=== PATIENT | female | born 1945 | race Caucasian/White ===

== ENCOUNTER 2017-01-31 10:50 | Emergency (ER) | payer MEDICARE, BC ==
--- NOTE | 2017-01-31 12:33 | CR ---
INDICATION: Chest pain. CHEST: An AP portable upright view of the chest, 01/31/2017, was compared with 06/25/2011 and revealed the heart to remain normal in size, although perhaps slightly increased in size compared with the previous study. The aorta is mildly tortuous. An active infiltrate or effusion was not identified. Overlying EKG leads are noted. IMPRESSION: 1. No acute process. 2. Probable ASHD. MTDD
[2017-01-31] MEDS ORDERED: Nitroglycerin 0.4 MG Tab.SL SL ONE (12:53)
[2017-01-31 14:15] VITALS: BP 121/62
--- NOTE | 2017-02-04 11:07 | ER ---
DATE SEEN: 01/31/2017 TIME SEEN: The patient was seen at 0145 hours. HISTORY OF PRESENT ILLNESS: This 71-year-old woman comes in with onset of 1- minute duration midsternal chest pain, 4 to 6 in intensity, several weeks' duration, intermittently throughout the day and she describes this as chest heaviness. This radiates to her left shoulder, arm, and these feel heavy on occasions when it radiates at about 4/10 in intensity. No associated lightheadedness, diaphoresis, nausea, tachycardia, palpitations, syncope, near syncope, leg pain, shortness of breath, cough, back pain, arm pain, jaw pain, or neck pain. Denies dyspnea on exertion. Cough has been present at night for the last 2 to 3 weeks. REVIEW OF SYSTEMS: HEENT: Negative. CARDIORESPIRATORY: As above. She has had a cough since November. This causes coughing discomfort in midsternum. GI: Occasional nausea some times in the morning before breakfast, yesterday noted it while driving with her sister to the [place] in the afternoon. She felt slightly nauseated while riding in the car. The patient is overweight. : Status post right kidney failure at one time, 09/21/2016, there was discussion about having a right kidney removed as this is not functioning. However, the sprayer machine stated she was too healthy and did not require surgery as the kidney was not causing further problems. Because of this, she has chronic kidney disease stage III. She has subsequent anemia and noted to have microcytic anemia with low hemoglobin with average in the 9 to 10 range. She is not currently taking iron medicines, but this has not changed her iron. She has dyslipidemia. PAST SURGICAL HISTORY: Cholecystectomy, colon surgery, hernia repair, mesh placement, and hysterectomy. SOCIAL HISTORY: Single. Nonsmoker. Does not drink alcohol or chew tobacco. PHYSICAL EXAMINATION: VITAL SIGNS: Blood pressure 109/59, heart rate 68, respirations 14, oxygen saturation 95%, and temperature is 36.8 degrees. Repeat blood pressure 132/51, 101/64, 121/62. GENERAL: Alert, overweight woman, in no acute distress. Slightly anxious. HEENT: PERRLA intact. Pharynx without abnormality. NECK: No cervical adenopathy or bruits in neck, or thyromegaly. LUNGS: Clear to auscultation. There are no rales, rhonchi, or wheezes. HEART: S1, S2. No irregular rate and rhythm. No murmur. ABDOMEN: Soft. No guarding. No abdominal discomfort. No hepatosplenomegaly. Midline scar xiphoid to symphysis, multiple scars noted. Also, has moderate induration right- sided lower abdomen (she states that is where the mesh is). No CVA percussion tenderness. EXTREMITIES: Lower extremities without pedal edema. Pulses normal. No clubbing. DERMIS: No scleral icterus, but she has a brown tanning, mild bronzing of the skin. IMAGING: EKG; left axis deviation, mildly poor R-wave progression across the anterior precordials. The computer did not read this as anterior myocardial infarction, age indeterminate. Chest x-ray, fullness of the superior right mediastinum secondary to brachiocephalic vessels, otherwise no cardiomegaly, no other infiltrates or cephalization of the vascular structures in the lungs. LABORATORY FINDINGS: Hemoglobin 10.5, white count 8200, PMNs 82, lymphocytes 9, monos 8, MCV is 79, MCH 26, both are low, MCHC is 33 (normal). RDW elevated at 16.5. Platelets elevated at 447,000. Troponin less than 0.01. D-dimer slightly elevated at 829 (The "10 Rule" - 10 times age is considered within normal range), hers is well within the normal range in terms of the up to date data and [employer] publications. GFR is decreased to 40 suggesting chronic kidney disease stage IV. However, this may be really the one functioning kidney. Last, 09/12/2015, hemoglobin is 12.5. On 09/10/2016, it was 9.7 (she has had transfusions in the past) probably had a transfusion at this point. I did not check the record. Otherwise, 01/31/2017-today, she has a 10.5 hemoglobin. In July 2015, she had a hemoglobin 10.3. These hemoglobins reflect the chronic kidney disease that she has. She has had a slow drop of her GFR from 44 on 08/10/2015, to 55 on 09/12/2015, greater than 60 on 09/14/2015, and 40 today (01/31/2017). Her platelets were chronically elevated since 2014 at 540,000, 587,000, and today is 447,000. ASSESSMENT: 1. Stable angina. Chest x-ray does not reveal any infiltrate. No cardiomegaly. 2. Probable coronary artery disease, as she did respond nicely to sublingual nitroglycerin; her chest discomfort of 1 went away. 3. Mild obesity. 4. Chronic kidney disease stage III (1 nonfunctioning right kidney). 5. Dyslipidemia. 6. Hypertension. 7. Iron therapy (even though she has low hemoglobin; however, she has had transfusion in the past that perhaps is efficacious). 8. Status post cholecystectomy, partial colectomy, mesh placement for hernia repair, and hysterectomy. PLAN: The patient is dismissed with Imdur 30 mg daily, 30 tablets prescribed. Follow up with doctor in a week. If not improved, perhaps a stress test may be needed. /[id number] OLIVER/JOSE R
== END 2017-01-31 14:35 | disposition home or self-care (01) ==
LOC: FB.ED 10:50
DX: I20.9 Angina pectoris, unspecified (principal); I12.9 Hypertensive chronic kidney disease with stage 1 through stage 4 chronic kidney disease, or unspecified chronic kidney disease; N18.3 Chronic kidney disease, stage 3 (moderate); E66.9 Obesity, unspecified; E78.5 Hyperlipidemia, unspecified; Z90.49 Acquired absence of other specified parts of digestive tract; Z90.710 Acquired absence of both cervix and uterus
CPT/HCPCS: 36415; 71010; 80053; 84484; 85025; 85379; 93005; 99285; A9270; 99283

== ENCOUNTER 2017-11-05 08:52 | Day surgery (SDC) | payer MEDICARE, BC ==
[2017-11-05] MEDS ORDERED: Lactated Ringers 1,000 ML IV SCH (09:00)
[2017-11-05] MEDS ORDERED: Sodium Chloride 0.9% 10 ML Syringe FLUSH PRN (09:00)
--- NOTE | 2017-11-05 10:43 | PCM.PN ---
- General Info Date of Service: 11/05/17 - Review of Systems Systems Review Comment:: 72 y/o female with recent history of anemia referred for EGD and Colonoscopy. She is medically stable to proceed. Her recent H and P is reviewed and there has been no significant recent changes. I have discussed the proposed procedures with the patient and she agrees to proceed accepting risks. - Patient Data Vitals - Most Recent: Last Vital Signs Temp 98.8 F 11/05/17 09:19 Pulse 60 11/05/17 09:19 Resp 20 11/05/17 09:19 BP 132/73 11/05/17 09:19 Pulse Ox 98 11/05/17 09:19 Weight - Most Recent: 177 lb Med Orders - Current: Current Medications Lactated Ringer's (Ringers, Lactated) 1,000 mls @ 125 mls/hr IV ASDIRECTED WANDA Last Admin: 11/05/17 10:08 Dose: 125 mls/hr Sodium Chloride (Saline Flush) 10 ml FLUSH ASDIRECTED PRN PRN Reason: Keep Vein Open - Problem List Review Problem List Initiated/Reviewed/Updated: Yes - My Orders Last 24 Hours: My Active Orders 11/04/17 17:41 Resuscitation Status Routine 11/05/17 09:00 Patient Status [ADT] Routine Accu Check [Blood Glucose Check, Bedside] [RC] ONETIME Verify Patient Consent Obtain [RC] ASDIRECTED Lactated Ringers [Ringers, Lactated] 1,000 ml IV ASDIRECTED Sodium Chloride 0.9% [Saline Flush] 10 ml FLUSH ASDIRECTED PRN Peripheral IV Insertion Adult [OM.PC] Routine - Assessment Assessment:: Anemia - Plan Plan:: EGD and Colonoscopy
[2017-11-05] MEDS ORDERED: Midazolam 1 MG/ML 2 ML SDV IV ONE (10:50)
[2017-11-05] MEDS ORDERED: Propofol 200 MG/20 ML SDV IV ONE (10:50)
--- NOTE | 2017-11-05 11:52 | PCM.OPNOTE ---
- General Post-Op/Procedure Note Date of Surgery/Procedure: 11/05/17 Operative Procedure(s): EGD with Biopsy and Colonoscopy with Polypectomy Findings: White patches in esophagus suggestive of bridgette esophagitis Scattered benign appearing gastric polyps No visible signs of bleeding on upper endoscopy Extensive Sigmoid Diverticulosis in area of previous colon resection but without signs of acute inflammation or bleeding Splenic flexure polyp Pre Op Diagnosis: anemia Post-Op Diagnosis: Bridgette Esophagitis. Gastric Polyps. Diverticulosis. Colon Polyp. Prior Sigmoid Colon Resection Anesthesia Technique: MAC Primary Surgeon: Bentley Boateng Pathology: Biopsies of Gastric Antrum, Gastric Polyps, Mid Esophagus Colon Polyp EBL in mLs: 3 Complications: None Condition: Good
[2017-11-05 12:59] VITALS: BP 117/53
--- NOTE | 2017-11-05 18:07 | OR ---
DATE OF OPERATION: 11/05/2017 SURGEON: Bnetley Boateng MD OPERATING SURGEON: Bentley Boateng MD PREOPERATIVE DIAGNOSIS: Anemia. POSTOPERATIVE DIAGNOSES: Bridgette esophagitis, gastric polyps, sigmoid colon diverticulosis, splenic flexure, colon polyp, prior colon resection. OPERATION PERFORMED: Esophagogastroduodenoscopy with biopsy and colonoscopy with polypectomy. INDICATIONS FOR SURGERY: This 72-year-old female has been having unexplained anemia and is referred for upper and lower endoscopy to evaluate for source of bleeding. FINDINGS: No definite source of bleeding is seen during the exams today. The patient does have a few benign-appearing small polyps in the midportion of her stomach, but none show any evidence of bleeding. She also has multiple white patches in her midesophagus suggestive of fungal esophagitis. On colonoscopy, there was extensive sigmoid diverticulosis, although this does not appear acutely inflamed and no evidence of active or recent bleeding was seen. There was a 1 cm irregular polyp noted at the splenic flexure and there is evidence of an anastomosis in the sigmoid colon consistent with her previous surgery, but no areas of acute inflammation or bleeding were seen. PROCEDURE IN DETAIL: The patient was taken to the procedure room. She was given intravenous sedation and her throat was topically anesthetized. The esophagus was intubated with the Olympus gastroscope, this was carefully advanced under direct visualization through the esophagus, stomach, and into the duodenum where examination to the fourth portion was performed. After carefully examining the duodenum, the scope was withdrawn back up into the stomach, where full examination including retroflex examination of the fundus was performed. Random biopsies of the antrum were taken to rule out H. pylori. Also, random sampling of the small benign-appearing gastric polyps was taken as well. The GE junction and esophagus were also re-examined as the scope was withdrawn. Biopsies were taken in the midesophagus to establish suspected Bridgette esophagitis. After examining the esophagus, the scope was removed and attention was turned to colonoscopy. Digital rectal exam was performed showing no rectal masses. The Olympus colonoscope was inserted into the rectum, where retroflexed examination of the rectal canal was performed. The scope was then carefully advanced under direct visualization through the entire length of the colon. This was somewhat difficult to negotiate through the sigmoid region because of extensive diverticulosis and prior surgery, but was able to be safely negotiated and then the scope was advanced to the cecum where the appendiceal orifice and ileocecal valve were viewed and the light is noted transilluminate the abdominal wall on the right lower quadrant. After examining the cecum, the scope was slowly withdrawn sequentially re-examining the colonic segments. In the region of the splenic flexure, the above-described polyp was identified. It was removed with a cautery snare and retrieved into a polyp trap. Examination was then completed and after the entire colon and rectum had been fully examined, the scope was removed and the patient was taken from the procedure room in satisfactory condition. ESTIMATED BLOOD LOSS: 3 mL. COMPLICATIONS: None. PROGNOSIS: Good. /[id number] MAKENNA/JOSE R
== END 2017-11-05 12:50 | disposition home or self-care (01) ==
LOC: FB.SDS 08:52
PROVIDERS: ATTEND Surgery
DX: K29.50 Unspecified chronic gastritis without bleeding (principal); B37.81 Candidal esophagitis; K31.7 Polyp of stomach and duodenum; K51.40 Inflammatory polyps of colon without complications; F32.9 Major depressive disorder, single episode, unspecified; K21.9 Gastro-esophageal reflux disease without esophagitis; I10 Essential (primary) hypertension; E03.9 Hypothyroidism, unspecified; E78.00 Pure hypercholesterolemia, unspecified; Z88.1 Allergy status to other antibiotic agents; Z88.8 Allergy status to other drugs, medicaments and biological substances; Z93.3 Colostomy status; Z79.899 Other long term (current) drug therapy
CPT/HCPCS: 00813; 43239; 45385; 88305; 88312; 88313; 88342; J2250; J2704; J7120; 82962

== ENCOUNTER 2018-01-12 10:58 | Emergency (ER) | payer OTHER, MEDICARE, BC ==
[2018-01-12] MEDS ORDERED: Acetaminophen 500 MG Tab PO ONE (11:51)
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
[2018-01-12 12:34] VITALS: BP 146/68
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
== END 2018-01-12 12:41 | disposition home or self-care (01) ==
LOC: FB.ED 10:58
DX: S90.01XA Contusion of right ankle, initial encounter (principal); S20.219A Contusion of unspecified front wall of thorax, initial encounter; E03.9 Hypothyroidism, unspecified; I10 Essential (primary) hypertension; Z79.899 Other long term (current) drug therapy; Z88.1 Allergy status to other antibiotic agents; Z88.5 Allergy status to narcotic agent; Z88.8 Allergy status to other drugs, medicaments and biological substances; Z79.01 Long term (current) use of anticoagulants; V59.9XXA Occupant (driver) (passenger) of pick-up truck or van injured in unspecified traffic accident, initial encounter
CPT/HCPCS: 73610; 99285; A9270

== ENCOUNTER 2019-01-25 10:29 | Emergency (ER) | payer MEDICARE, BC ==
--- NOTE | 2019-01-25 10:58 | EDM.PDOC ---
ED HPI GENERAL MEDICAL PROBLEM - General Chief Complaint: Gastrointestinal Problem Stated Complaint: DIARRHEA, VOMITING Time Seen by Provider: 01/25/19 10:54 Source of Information: Reports: Patient, Family History Limitations: Reports: No Limitations - History of Present Illness INITIAL COMMENTS - FREE TEXT/NARRATIVE: 73 y.o.w.f came to the ed because of nausea and vomiting mehran one yesterdays and 4 BMs today with dysuria. No Trauma. Pt was d/c from [facility] after a stent was placed into her left ureter. No trauma, No N/V and D at this time. pt denies food poisoning. No SOB or CP. No other acute med issues. BP 103/69 RR 16 Pulse ox 96% on RA Temp 36.6 Pulse 75 Onset Date: 01/24/19 Duration: Hour(s):, Day(s):, Waxing/Waning Location: Reports: Abdomen Quality: Reports: Burning, Dull Severity: Mild Improves with: Reports: Rest Worsens with: Reports: Movement Context: Reports: Sick Contact Associated Symptoms: Reports: No Other Symptoms Abdominal Pain Score (Numeric/FACES): 4 - Related Data Allergies Allergy/AdvReac Type Severity Reaction Status Date / Time lisinopril Allergy Unknown Swelling Verified 01/25/19 10:39 amoxicillin [From Augmentin] Allergy Swelling Verified 01/25/19 10:39 clavulanic acid Allergy Swelling Verified 01/25/19 10:39 [From Augmentin] codeine AdvReac Unknown Nausea Verified 01/25/19 10:39 propoxyphene HCl AdvReac Unknown Other Verified 01/25/19 10:39 [From Darvon] Home Meds: Home Meds Ascorbic Acid [C-1000] 1,000 mg PO DAILY 09/06/16 [History] Calcium Carb & Citrate/Vit D3 [Citracal + D ER] 1 each PO BID 09/06/16 [History] Cholecalciferol (Vitamin D3) [Vitamin D3] 2,000 unit PO 1800 09/06/16 [History] Citalopram [Citalopram HBr] 40 mg PO DAILY 09/06/16 [History] Fluticasone Propionate [Flonase] 2 spray NS DAILY PRN 09/06/16 [History] Gemfibrozil [Lopid] 600 mg PO BIDAC 09/06/16 [History] Losartan [Cozaar] 50 mg PO DAILY 09/06/16 [History] Lutein 20 mg PO 1800 09/06/16 [History] Metoprolol Succinate [Toprol XL] 50 mg PO DAILY 09/06/16 [History] Multivitamin with Minerals [Multiple Vitamin] 1 tab PO DAILY 09/06/16 [History] Omeprazole 40 mg PO ACBREAKFAST 09/06/16 [History] Simvastatin [Zocor] 10 mg PO DAILY 09/06/16 [History] Vitamin B Complex [B Complex] 1 each PO DAILY 09/06/16 [History] hydroCHLOROthiazide [Hydrochlorothiazide] 25 mg PO DAILY 09/06/16 [History] Levothyroxine 150 mcg PO MO 09/09/16 [History] Acetaminophen [Masophen] 1,000 mg PO Q8HR PRN MDD 4000 MG 11/04/17 [History] Furosemide [Lasix] 20 mg PO DAILY 11/04/17 [History] Levothyroxine 75 mcg PO SUTUWETHFRSA 11/04/17 [History] Nitroglycerin [Nitrostat] 0.4 mg SL ASDIRECTED 11/04/17 [History] Potassium Chloride [Klor-Con 10] 10 meq PO DAILY 11/04/17 [History] Ranitidine HCl [Zantac] 150 mg PO DAILY 11/04/17 [History] Coconut Oil 1,000 mg PO BID 11/05/17 [History] Magnesium Oxide [Magnesium] 400 mg PO 1200 11/05/17 [History] Alendronate Sodium [Fosamax] 70 mg PO DAILY 01/25/19 [History] Fish,Saf,Flx,Brg Oils/O3,6,9#2 [Caiz-Rvtl-Twmkqo Oil Softgel] 1 cap PO BID 01/25 [History] Gabapentin [Neurontin] 300 mg PO BID 01/25/19 [History] Gabapentin [Neurontin] 600 cap PO BEDTIME 01/25/19 [History] Ginkgo Biloba 40 mg PO DAILY 01/25/19 [History] Levofloxacin [Levaquin] 500 mg PO DAILY #10 tablet 01/25/19 [Rx] Loratadine 10 mg PO DAILY 01/25/19 [History] Ondansetron [Zofran ODT] 4 mg PO Q6H PRN #5 tab.dis 01/25/19 [Rx] Past Medical History HEENT History: Reports: Cataract, Impaired Vision, Other (See Below) Other HEENT History: DOUBLE VISION, bilat cataracts, Cardiovascular History: Reports: High Cholesterol, Hypertension Respiratory History: Reports: None Gastrointestinal History: Reports: Diverticulosis, GERD, GI Bleed Genitourinary History: Reports: Renal Calculus Other Genitourinary History: PAST KIDNEY STONES. STATES RIGHT KIDNEY DOES NOT FUNCTION. RN LACTATION CONSULTANT History: Reports: Other RN LACTATION CONSULTANT History: III, PARA III Musculoskeletal History: Reports: Arthritis, Fracture, Osteoarthritis, Other ( See Below) Other Musculoskeletal History: BURSITIS OF RIGHT HIP, hx L fx ankle Neurological History: Reports: None Psychiatric History: Reports: Anxiety, Depression Endocrine/Metabolic History: Reports: Hypothyroidism, Obesity/BMI 30+ Hematologic History: Reports: Anemia, Anticoagulation Therapy, Blood Transfusion (s), Iron Deficiency Immunologic History: Reports: None Oncologic (Cancer) History: Reports: None Dermatologic History: Reports: None - Infectious Disease History Infectious Disease History: Reports: Chicken Pox, Measles, Mumps - Past Surgical History Head Surgeries/Procedures: Reports: None HEENT Surgical History: Reports: Adenoidectomy, Tonsillectomy GI Surgical History: Reports: Appendectomy, Cholecystectomy, Colon, Colonoscopy , Colostomy, EGD, Hernia, Abdominal, Other (See Below) Other GI Surgeries/Procedures: PT HAS HAD SEVERAL HERNIA SURGERIES IN THE PAST. STATES MANY COLON SURGERIES INVOLVING COLOSTOMY X 2 R/T LEAKING POST SURGERY. STATES NOW HAS VAGINAL DRAINAGE FROM FISTULA. Female Surgical History: Reports: Hysterectomy, Oophorectomy, Salpingo- Oophorectomy, Other (See Below) Other Female Surgeries/Procedures: CLOSURE OF A VAGINAL FISTULA. Kidney stent placed on 01.19.19 Musculoskeletal Surgical History: Reports: ORIF Other Musculoskeletal Surgeries/Procedures:: L ankle surgery x 2 Social & Family History - Family History Family Medical History: Noncontributory GI: Reports: None - Tobacco Use Smoking Status *Q: Never Smoker - Caffeine Use Caffeine Use: Reports: Soda - Recreational Drug Use Recreational Drug Use: No ED ROS GENERAL - Review of Systems Review Of Systems: See Below Constitutional: Reports: No Symptoms HEENT: Reports: No Symptoms Respiratory: Reports: No Symptoms Cardiovascular: Reports: No Symptoms Endocrine: Reports: No Symptoms GI/Abdominal: Reports: Abdominal Pain (suprapubic) : Reports: Dysuria Musculoskeletal: Reports: No Symptoms Skin: Reports: No Symptoms Neurological: Reports: No Symptoms Psychiatric: Reports: No Symptoms Hematologic/Lymphatic: Reports: No Symptoms Immunologic: Reports: No Symptoms ED EXAM, GI/ABD - Physical Exam Exam: See Below Exam Limited By: No Limitations General Appearance: Alert, WD/WN, Mild Distress Eyes: Bilateral: Normal Appearance Ears: Normal External Exam Nose: Normal Inspection Throat/Mouth: Normal Inspection Head: Atraumatic, Normocephalic Neck: Normal Inspection Respiratory/Chest: No Respiratory Distress, Lungs Clear, Normal Breath Sounds Cardiovascular: Normal Peripheral Pulses, Regular Rate, Rhythm, No Edema GI/Abdominal Exam: Normal Bowel Sounds, Tender (suprpubic) (Female) Exam: Deferred Rectal (Female) Exam: Deferred Back Exam: Normal Inspection, Full Range of Motion Extremities: Normal Inspection, Normal Range of Motion Neurological: Alert, Oriented, CN II-XII Intact, Normal Cognition, Normal Gait Psychiatric: Normal Affect, Normal Mood Skin Exam: Warm, Dry, Intact, Normal Color, No Rash Lymphatic: No Adenopathy Course - Vital Signs Text/Narrative:: 73 y.o.w.f came to the ed because of nausea and vomiting mehran one yesterdays and 4 BMs today with dysuria. No Trauma. Pt was d/c from [place] after a stent was placed into her left ureter. No trauma, No N/V and D at this time. pt denies food poisoning. No SOB or CP. No other acute med issues. BP 103/69 RR 16 Pulse ox 96% on RA Temp 36.6 Pulse 75 PE: WNWD WD with dysuria with dry mucosal membrane Labs; UA: UTI Impression: UTI Dehydration Tx: Abx Reexam: Pt improved Plan: D/C with instructions Last Recorded V/S: Last Vital Signs Temp 36.7 C 01/25/19 10:40 Pulse 69 01/25/19 10:40 Resp 16 01/25/19 10:40 BP 103/69 01/25/19 10:40 Pulse Ox 99 01/25/19 10:40 - Orders/Labs/Meds Labs: Laboratory Tests 01/25/19 01/25/19 01/25/19 Range/Units 11:00 11:10 11:10 WBC 9.2 (4.5-12.0) X10-3/uL RBC 4.77 (3.23-5.20) x10(6)uL Hgb 12.6 (11.5-15.5) g/dL Hct 38.5 (30.0-51.3) % MCV 80.7 (80-96) fL MCH 26.4 L (27.7-33.6) pg MCHC 32.7 (32.2-35.4) g/dL RDW 16.0 H (11.5-15.5) % Plt Count 386 H (125-369) X10(3)uL MPV 7.9 (7.4-10.4) fL Neut % (Auto) 79.0 (46-82) % Lymph % (Auto) 8.4 L (13-37) % [place] % (Auto) 11.1 (4-12) % Eos % (Auto) 1 (1.0-5.0) % Baso % (Auto) 1 (0-2) % Neut # (Auto) 7.3 (1.6-8.3) # Lymph # (Auto) 0.8 (0.6-5.0) # [place] # (Auto) 1.0 (0.0-1.3) # Eos # (Auto) 0.1 (0.0-0.8) # Baso # (Auto) 0.0 (0.0-0.2) # Sodium 136 (135-145) mmol/L Potassium 3.7 (3.5-5.3) mmol/L Chloride 100 (100-110) mmol/L Carbon Dioxide 26 (21-32) mmol/L BUN 32 H (7-18) mg/dL Creatinine 1.3 H (0.55-1.02) mg/dL Est Cr Clr Drug Dosing 29.57 mL/min Estimated GFR (MDRD) 40 L (>60) BUN/Creatinine Ratio 24.6 H (9-20) Glucose 107 (80-116) mg/dL Calcium 8.9 (8.6-10.2) mg/dL Amylase (25-115) U/L Urine Color Yellow (YELLOW) Urine Appearance Clear (CLEAR) Urine pH 5.0 (5.0-6.5) Ur Specific [place] 1.010 (1.010-1.025) Urine Protein Negative (NEGATIVE) mg/dL Urine Glucose (UA) Normal (NORMAL) mg/dL Urine Ketones Negative (NEGATIVE) mg/dL Urine Occult Blood Trace (NEGATIVE) Urine Nitrite Negative (NEGATIVE) Urine Bilirubin Negative (NEGATIVE) Urine Urobilinogen Normal (NEGATIVE) mg/dL Ur Leukocyte Esterase Moderate H (NEGATIVE) Urine RBC 0-5 (0-5) Urine WBC 30-40 H (0-5) Ur Squamous Epith Cells Few H (NS,R,O) Urine Bacteria Moderate H (NS) 01/25/19 Range/Units 11:10 WBC (4.5-12.0) X10-3/uL RBC (3.23-5.20) x10(6)uL Hgb (11.5-15.5) g/dL Hct (30.0-51.3) % MCV (80-96) fL MCH (27.7-33.6) pg MCHC (32.2-35.4) g/dL RDW (11.5-15.5) % Plt Count (125-369) X10(3)uL MPV (7.4-10.4) fL Neut % (Auto) (46-82) % Lymph % (Auto) (13-37) % [place] % (Auto) (4-12) % Eos % (Auto) (1.0-5.0) % Baso % (Auto) (0-2) % Neut # (Auto) (1.6-8.3) # Lymph # (Auto) (0.6-5.0) # [place] # (Auto) (0.0-1.3) # Eos # (Auto) (0.0-0.8) # Baso # (Auto) (0.0-0.2) # Sodium (135-145) mmol/L Potassium (3.5-5.3) mmol/L Chloride (100-110) mmol/L Carbon Dioxide (21-32) mmol/L BUN (7-18) mg/dL Creatinine (0.55-1.02) mg/dL Est Cr Clr Drug Dosing mL/min Estimated GFR (MDRD) (>60) BUN/Creatinine Ratio (9-20) Glucose (80-116) mg/dL Calcium (8.6-10.2) mg/dL Amylase 39 (25-115) U/L Urine Color (YELLOW) Urine Appearance (CLEAR) Urine pH (5.0-6.5) Ur Specific [place] (1.010-1.025) Urine Protein (NEGATIVE) mg/dL Urine Glucose (UA) (NORMAL) mg/dL Urine Ketones (NEGATIVE) mg/dL Urine Occult Blood (NEGATIVE) Urine Nitrite (NEGATIVE) Urine Bilirubin (NEGATIVE) Urine Urobilinogen (NEGATIVE) mg/dL Ur Leukocyte Esterase (NEGATIVE) Urine RBC (0-5) Urine WBC (0-5) Ur Squamous Epith Cells (NS,R,O) Urine Bacteria (NS) Departure - Departure Time of Disposition: 12:06 Disposition: Home, Self-Care 01 Condition: Good Clinical Impression: UTI (urinary tract infection), Gastroenteritis, Dehydration - Discharge Information Prescriptions: Levofloxacin [Levaquin] 500 mg PO DAILY #10 tablet Ondansetron [Zofran ODT] 4 mg PO Q6H PRN #5 tab.dis PRN Reason: nausea, vomiting Instructions: Viral Gastroenteritis, Adult, [id number], Urinary Tract Infection, Adult Referrals: Scot Domingo MD [Primary Care Provider] - Forms: ED Department Discharge Additional Instructions: Please advance diet as tolerated, Zofran for nausea, Levofloxacin for you r bladder infection, please f/u, come back if your symptoms get worse acutely
[2019-01-25 21:00] VITALS: BP 96/58
== END 2019-01-25 12:35 | disposition home or self-care (01) ==
LOC: FB.ED 10:29
DX: K52.9 Noninfective gastroenteritis and colitis, unspecified (principal); N39.0 Urinary tract infection, site not specified; I10 Essential (primary) hypertension; E78.00 Pure hypercholesterolemia, unspecified; F41.9 Anxiety disorder, unspecified; F32.9 Major depressive disorder, single episode, unspecified; E03.9 Hypothyroidism, unspecified; Z79.01 Long term (current) use of anticoagulants; K21.9 Gastro-esophageal reflux disease without esophagitis; Z88.5 Allergy status to narcotic agent; Z88.1 Allergy status to other antibiotic agents; Z79.899 Other long term (current) drug therapy; Z88.8 Allergy status to other drugs, medicaments and biological substances
CPT/HCPCS: 36415; 80048; 81001; 82150; 85025; 99284

== ENCOUNTER 2019-07-12 14:01 | Emergency (ER) | payer MEDICARE, BC ==
[2019-07-12] MEDS ORDERED: Sodium Chloride 0.9% 10 ML Syringe FLUSH PRN (14:16)
[2019-07-12] MEDS ORDERED: Ondansetron 4 MG/2 ML SDV IVPUSH ONE (14:19)
[2019-07-12] MEDS ORDERED: Sodium Chloride 0.9% 1,000 ML IV SCH (14:30)
--- NOTE | 2019-07-12 15:56 | EDM.PDOC ---
ED HPI GENERAL MEDICAL PROBLEM - General Chief Complaint: Abdominal Pain Stated Complaint: LOW B/P, NO APPETITE Time Seen by Provider: 07/12/19 14:05 Source of Information: Reports: Patient History Limitations: Reports: No Limitations - History of Present Illness INITIAL COMMENTS - FREE TEXT/NARRATIVE: Patient presented to the ED because of weakness,fatigue,poor appetite since she had a low back surgery 2weeks ago. She denies any cough or cold, fever or chills. She mentioned that even before her surgery she started to have watery stools at least 3-4 times a day. She denies having any abdominal pain, nausea or vomiting. Right Lower Abdomen Pain Score (Numeric/FACES): 2 - Related Data Allergies Allergy/AdvReac Type Severity Reaction Status Date / Time lisinopril Allergy Unknown Swelling Verified 01/25/19 10:39 amoxicillin [From Augmentin] Allergy Swelling Verified 01/25/19 10:39 clavulanic acid Allergy Swelling Verified 01/25/19 10:39 [From Augmentin] codeine AdvReac Unknown Nausea Verified 01/25/19 10:39 propoxyphene HCl AdvReac Unknown Other Verified 01/25/19 10:39 [From Darvon] Home Meds: Home Meds Ascorbic Acid [C-1000] 1,000 mg PO DAILY 09/06/16 [History] Calcium Carb, Citrate/Vit D3 [Citracal + D ER] 1 each PO BID 09/06/16 [History] Cholecalciferol (Vitamin D3) [Vitamin D3] 2,000 unit PO 1800 09/06/16 [History] Citalopram [Citalopram HBr] 40 mg PO DAILY 09/06/16 [History] Fluticasone Propionate [Flonase] 2 spray NS DAILY PRN 09/06/16 [History] Gemfibrozil [Lopid] 600 mg PO BIDAC 09/06/16 [History] Losartan [Cozaar] 50 mg PO DAILY 09/06/16 [History] Lutein 20 mg PO 1800 09/06/16 [History] Metoprolol Succinate [Toprol XL] 50 mg PO DAILY 09/06/16 [History] Multivitamin with Minerals [Multiple Vitamin] 1 tab PO DAILY 09/06/16 [History] Omeprazole 40 mg PO ACBREAKFAST 09/06/16 [History] Simvastatin [Zocor] 10 mg PO DAILY 09/06/16 [History] Vitamin B Complex [B Complex] 1 each PO DAILY 09/06/16 [History] hydroCHLOROthiazide [Hydrochlorothiazide] 25 mg PO DAILY 09/06/16 [History] Levothyroxine 150 mcg PO MO 09/09/16 [History] Acetaminophen [Masophen] 1,000 mg PO Q8HR PRN MDD 4000 MG 11/04/17 [History] Furosemide [Lasix] 20 mg PO DAILY 11/04/17 [History] Levothyroxine 75 mcg PO SUTUWETHFRSA 11/04/17 [History] Nitroglycerin [Nitrostat] 0.4 mg SL ASDIRECTED 11/04/17 [History] Potassium Chloride [Klor-Con 10] 10 meq PO DAILY 11/04/17 [History] Ranitidine HCl [Zantac] 150 mg PO DAILY 11/04/17 [History] Coconut Oil 1,000 mg PO BID 11/05/17 [History] Magnesium Oxide [Magnesium] 400 mg PO 1200 11/05/17 [History] Alendronate Sodium [Fosamax] 70 mg PO DAILY 01/25/19 [History] Fish,Saf,Flx,Brg Oils/O3,6,9N2 [Kuer-Lwwz-Zdrugr Oil Softgel] 1 cap PO BID 01/25 [History] Gabapentin [Neurontin] 300 mg PO BID 01/25/19 [History] Gabapentin [Neurontin] 600 cap PO BEDTIME 01/25/19 [History] Ginkgo Biloba 40 mg PO DAILY 01/25/19 [History] Levofloxacin [Levaquin] 500 mg PO DAILY #10 tablet 01/25/19 [Rx] Loratadine 10 mg PO DAILY 01/25/19 [History] Ondansetron [Zofran ODT] 4 mg PO Q6H PRN #5 tab.dis 01/25/19 [Rx] Ciprofloxacin HCl [Cipro] 500 mg PO BID #10 tablet 07/12/19 [Rx] Ondansetron [Zofran ODT] 4 mg PO Q4H PRN #7 tab.dis 07/12/19 [Rx] Potassium Chloride 40 meq PO TID #3 tablet.er 07/12/19 [Rx] Past Medical History HEENT History: Reports: Cataract, Impaired Vision, Other (See Below) Other HEENT History: DOUBLE VISION, bilat cataracts, Cardiovascular History: Reports: High Cholesterol, Hypertension Respiratory History: Reports: None Gastrointestinal History: Reports: Diverticulosis, GERD, GI Bleed Genitourinary History: Reports: Renal Calculus Other Genitourinary History: PAST KIDNEY STONES. STATES RIGHT KIDNEY DOES NOT FUNCTION. SPECIAL LIBRARIAN History: Reports: Other SPECIAL LIBRARIAN History: III, PARA III Musculoskeletal History: Reports: Arthritis, Fracture, Osteoarthritis, Other ( See Below) Other Musculoskeletal History: BURSITIS OF RIGHT HIP, hx L fx ankle Neurological History: Reports: None Psychiatric History: Reports: Anxiety, Depression Endocrine/Metabolic History: Reports: Hypothyroidism, Obesity/BMI 30+ Hematologic History: Reports: Anemia, Anticoagulation Therapy, Blood Transfusion (s), Iron Deficiency Immunologic History: Reports: None Oncologic (Cancer) History: Reports: None Dermatologic History: Reports: None - Infectious Disease History Infectious Disease History: Reports: Chicken Pox, Measles, Mumps - Past Surgical History Head Surgeries/Procedures: Reports: None HEENT Surgical History: Reports: Adenoidectomy, Tonsillectomy GI Surgical History: Reports: Appendectomy, Cholecystectomy, Colon, Colonoscopy , Colostomy, EGD, Hernia, Abdominal, Other (See Below) Other GI Surgeries/Procedures: PT HAS HAD SEVERAL HERNIA SURGERIES IN THE PAST. STATES MANY COLON SURGERIES INVOLVING COLOSTOMY X 2 R/T LEAKING POST SURGERY. STATES NOW HAS VAGINAL DRAINAGE FROM FISTULA. Female Surgical History: Reports: Hysterectomy, Oophorectomy, Salpingo- Oophorectomy, Other (See Below) Other Female Surgeries/Procedures: CLOSURE OF A VAGINAL FISTULA. Kidney stent placed on 01.19.19 Musculoskeletal Surgical History: Reports: ORIF Other Musculoskeletal Surgeries/Procedures:: L ankle surgery x 2 Social & Family History - Family History Family Medical History: Noncontributory GI: Reports: None - Caffeine Use Caffeine Use: Reports: Soda ED ROS GENERAL - Review of Systems Review Of Systems: See Below Constitutional: Reports: No Symptoms HEENT: Reports: No Symptoms Respiratory: Reports: No Symptoms Cardiovascular: Reports: No Symptoms Endocrine: Reports: No Symptoms GI/Abdominal: Reports: Anorexia, Diarrhea : Reports: No Symptoms Musculoskeletal: Reports: No Symptoms Skin: Reports: No Symptoms Neurological: Reports: No Symptoms Psychiatric: Reports: No Symptoms ED EXAM, GI/ABD - Physical Exam Exam: See Below Exam Limited By: No Limitations General Appearance: Alert Eyes: Bilateral: Pale Conjunctiva Ears: Normal External Exam, Normal Canal Nose: Normal Inspection, Normal Mucosa Throat/Mouth: Normal Inspection, Normal Teeth, Other (dry mouth and lips) Head: Atraumatic, Normocephalic Neck: Normal Inspection, Supple, Non-Tender Respiratory/Chest: No Respiratory Distress, Lungs Clear, Normal Breath Sounds, No Accessory Muscle Use, Chest Non-Tender Cardiovascular: Normal Peripheral Pulses, Regular Rate, Rhythm, No Edema, No Gallop, No JVD GI/Abdominal Exam: Normal Bowel Sounds, Soft Skin Exam: Warm, Dry Course - Vital Signs Text/Narrative:: labs,EKG-discussed with patient NS 1 L bolus Crea-1.8 with elevated BUN. Dehydration most likely from oral intake and diarrhea K-3.1 will replaced UTI-start on cipro Last Recorded V/S: Last Vital Signs Temp 36.9 C 07/12/19 16:15 Pulse 92 07/12/19 16:15 Resp 18 07/12/19 16:15 BP 97/51 L 07/12/19 16:15 Pulse Ox 97 07/12/19 16:15 - Orders/Labs/Meds Orders: Active Orders 24 hr Category Date Time Status CULTURE URINE [RM] Stat Lab 07/12/19 15:14 Received OVA + PARASITE EXAM Stat Lab 07/12/19 15:14 Received STOOL CULTURE Stat Lab 07/12/19 15:14 Received Saline Lock Insert [OM.PC] Routine Oth 07/12/19 14:16 Ordered Labs: Laboratory Tests 07/12/19 07/12/19 07/12/19 Range/Units 14:36 14:36 14:36 WBC 11.3 (4.5-12.0) X10-3/uL RBC 3.73 (3.23-5.20) x10(6)uL Hgb 9.8 L (11.5-15.5) g/dL Hct 29.5 L (30.0-51.3) % MCV 79.1 L (80-96) fL MCH 26.4 L (27.7-33.6) pg MCHC 33.4 (32.2-35.4) g/dL RDW 18.2 H (11.5-15.5) % Plt Count 654 H (125-369) X10(3)uL MPV 6.8 L (7.4-10.4) fL Neut % (Auto) 80.9 (46-82) % Lymph % (Auto) 7.2 L (13-37) % Major % (Auto) 10.9 (4-12) % Eos % (Auto) 1 (1.0-5.0) % Baso % (Auto) 0 (0-2) % Neut # (Auto) 9.2 H (1.6-8.3) # Lymph # (Auto) 0.8 (0.6-5.0) # Major # (Auto) 1.2 (0.0-1.3) # Eos # (Auto) 0.1 (0.0-0.8) # Baso # (Auto) 0.0 (0.0-0.2) # Sodium 133 L (135-145) mmol/L Potassium 3.1 L (3.5-5.3) mmol/L Chloride 100 (100-110) mmol/L Carbon Dioxide 23 (21-32) mmol/L BUN 61 H D (7-18) mg/dL Creatinine 1.8 H (0.55-1.02) mg/dL Est Cr Clr Drug Dosing TNP Estimated GFR (MDRD) 27 L (>60) BUN/Creatinine Ratio 33.9 H (9-20) Glucose 144 H (80-116) mg/dL Calcium 8.1 L (8.6-10.2) mg/dL Total Bilirubin 0.4 (0.1-1.3) mg/dL AST 15 (5-25) IU/L ALT 42 H D (12-36) U/L Alkaline Phosphatase 202 H (56-112) IU/L Total Protein 6.7 (6.0-8.0) g/dL Albumin 2.2 L (3.2-4.6) g/dL Globulin 4.5 g/dL Albumin/Globulin Ratio 0.5 Amylase 20 L (25-115) U/L Lipase 80 (73-393) U/L Urine Color (YELLOW) Urine Appearance (CLEAR) Urine pH (5.0-6.5) Ur Specific [place] (1.010-1.025) Urine Protein (NEGATIVE) mg/dL Urine Glucose (UA) (NORMAL) mg/dL Urine Ketones (NEGATIVE) mg/dL Urine Occult Blood (NEGATIVE) Urine Nitrite (NEGATIVE) Urine Bilirubin (NEGATIVE) Urine Urobilinogen (NEGATIVE) mg/dL Ur Leukocyte Esterase (NEGATIVE) Urine RBC (0-5) Urine WBC (0-5) Urine Bacteria (NS) 07/12/19 Range/Units 15:14 WBC (4.5-12.0) X10-3/uL RBC (3.23-5.20) x10(6)uL Hgb (11.5-15.5) g/dL Hct (30.0-51.3) % MCV (80-96) fL MCH (27.7-33.6) pg MCHC (32.2-35.4) g/dL RDW (11.5-15.5) % Plt Count (125-369) X10(3)uL MPV (7.4-10.4) fL Neut % (Auto) (46-82) % Lymph % (Auto) (13-37) % Major % (Auto) (4-12) % Eos % (Auto) (1.0-5.0) % Baso % (Auto) (0-2) % Neut # (Auto) (1.6-8.3) # Lymph # (Auto) (0.6-5.0) # Major # (Auto) (0.0-1.3) # Eos # (Auto) (0.0-0.8) # Baso # (Auto) (0.0-0.2) # Sodium (135-145) mmol/L Potassium (3.5-5.3) mmol/L Chloride (100-110) mmol/L Carbon Dioxide (21-32) mmol/L BUN (7-18) mg/dL Creatinine (0.55-1.02) mg/dL Est Cr Clr Drug Dosing Estimated GFR (MDRD) (>60) BUN/Creatinine Ratio (9-20) Glucose (80-116) mg/dL Calcium (8.6-10.2) mg/dL Total Bilirubin (0.1-1.3) mg/dL AST (5-25) IU/L ALT (12-36) U/L Alkaline Phosphatase (56-112) IU/L Total Protein (6.0-8.0) g/dL Albumin (3.2-4.6) g/dL Globulin g/dL Albumin/Globulin Ratio Amylase (25-115) U/L Lipase (73-393) U/L Urine Color Yellow (YELLOW) Urine Appearance Cloudy (CLEAR) Urine pH 5.0 (5.0-6.5) Ur Specific [place] 1.010 (1.010-1.025) Urine Protein Negative (NEGATIVE) mg/dL Urine Glucose (UA) Normal (NORMAL) mg/dL Urine Ketones Negative (NEGATIVE) mg/dL Urine Occult Blood Large H (NEGATIVE) Urine Nitrite Negative (NEGATIVE) Urine Bilirubin Negative (NEGATIVE) Urine Urobilinogen Normal (NEGATIVE) mg/dL Ur Leukocyte Esterase Large H (NEGATIVE) Urine RBC Packed H (0-5) Urine WBC Packed H (0-5) Urine Bacteria Many H (NS) Meds: Medications Discontinued Medications Generic Name Dose Route Start Last Admin Trade Name Freq PRN Reason Stop Dose Admin Sodium Chloride 1,000 mls @ 999 mls/hr 07/12/19 14:30 07/12/19 14:55 Normal Saline IV 999 mls/hr ASDIRECTED WANDA Administration Ondansetron HCl 4 mg 07/12/19 14:19 07/12/19 15:10 Zofran IVPUSH 07/12/19 14:20 4 mg ONETIME ONE Administration Sodium Chloride 10 ml 07/12/19 14:16 07/12/19 15:10 Saline Flush FLUSH 10 ml ASDIRECTED PRN Administration Keep Vein Open Departure - Departure Time of Disposition: 15:30 Disposition: Home, Self-Care 01 Condition: Good Clinical Impression: Dehydration, UTI (urinary tract infection), Gastroenteritis, FLAVIO (acute kidney injury) - Discharge Information Prescriptions: Ciprofloxacin HCl [Cipro] 500 mg PO BID #10 tablet Ondansetron [Zofran ODT] 4 mg PO Q4H PRN #7 tab.dis PRN Reason: Nausea Potassium Chloride 40 meq PO TID #3 tablet.er Instructions: Viral Gastroenteritis, Adult, Onwu-pb-Pnsr, Dehydration, Adult, [id number]-[id number], Urinary Tract Infection, Adult Referrals: Scot Domingo MD [Primary Care Provider] - Forms: ED Department Discharge Additional Instructions: please read discharge instructions on dehydration,UTI, FLAVIO, gastroenteritis drink at least 2 liters of water a day zofran 4 mg odt every 4 hours as needed for nausea/vomiting cipro 500 mg twice daily for 5 days follow up stool and urine culture results after 3 days - My Orders Last 24 Hours: My Active Orders 07/12/19 14:16 Saline Lock Insert [OM.PC] Routine 07/12/19 15:14 CULTURE URINE [RM] Stat OVA + PARASITE EXAM Stat STOOL CULTURE Stat - Assessment/Plan Last 24 Hours: My Active Orders 07/12/19 14:16 Saline Lock Insert [OM.PC] Routine 07/12/19 15:14 CULTURE URINE [RM] Stat OVA + PARASITE EXAM Stat STOOL CULTURE Stat
[2019-07-12 16:20] VITALS: BP 97/51; PULSE 92
== END 2019-07-12 16:20 | disposition home or self-care (01) ==
LOC: FB.ED 14:01
DX: E86.0 Dehydration (principal); N39.0 Urinary tract infection, site not specified; K52.9 Noninfective gastroenteritis and colitis, unspecified; N17.9 Acute kidney failure, unspecified; E78.5 Hyperlipidemia, unspecified; I10 Essential (primary) hypertension; K21.9 Gastro-esophageal reflux disease without esophagitis; F41.9 Anxiety disorder, unspecified; F32.9 Major depressive disorder, single episode, unspecified; E03.9 Hypothyroidism, unspecified; E66.9 Obesity, unspecified; Z68.35 Body mass index [BMI] 35.0-35.9, adult; Z88.0 Allergy status to penicillin; Z88.8 Allergy status to other drugs, medicaments and biological substances; Z88.6 Allergy status to analgesic agent; Z79.01 Long term (current) use of anticoagulants; Z79.899 Other long term (current) drug therapy; Z79.890 Hormone replacement therapy
CPT/HCPCS: 36415; 80053; 81001; 82150; 83690; 85025; 87045; 87046; 87086; 87088; 87177; 87186; 87209; 87230; 87427; 93010; 96361; 96374; 99284; 99285; J2405; J7030

== ENCOUNTER 2020-05-22 10:23 | Emergency (ER) | payer MEDICARE, BC ==
--- NOTE | 2020-05-22 10:53 | EDM.PDOC ---
ED HPI GENERAL MEDICAL PROBLEM - General Time Seen by Provider: 05/22/20 10:35 Source of Information: Reports: Patient History Limitations: Reports: No Limitations - History of Present Illness INITIAL COMMENTS - FREE TEXT/NARRATIVE: pt c/o cramping type pain all across her abd X 3 days, on and off but almost steady today, with occasional nausea and watery diarrhea about 3-4 times a day, denies fever , chills or any other associated sx, report Hx of diverticulitis with similar presentation few years ago, pt denies any other medical concerns. Abdominal Pain Score (Numeric/FACES): 6 - Related Data Allergies Allergy/AdvReac Type Severity Reaction Status Date / Time lisinopril Allergy Unknown Swelling Verified 05/22/20 12:03 amoxicillin [From Augmentin] Allergy Swelling Verified 05/22/20 12:03 clavulanic acid Allergy Swelling Verified 05/22/20 12:03 [From Augmentin] codeine AdvReac Unknown Nausea Verified 05/22/20 12:03 propoxyphene HCl AdvReac Unknown Other Verified 05/22/20 12:03 [From Darvon] Home Meds: Home Meds Ascorbic Acid [C-1000] 1,000 mg PO DAILY 09/06/16 [History] Calcium Carb, Citrate/Vit D3 [Citracal + D ER] 1 each PO BID 09/06/16 [History] Cholecalciferol (Vitamin D3) [Vitamin D3] 2,000 unit PO 1800 09/06/16 [History] Citalopram [Citalopram HBr] 40 mg PO DAILY 09/06/16 [History] Fluticasone Propionate [Flonase] 2 spray NS DAILY PRN 09/06/16 [History] Losartan [Cozaar] 50 mg PO DAILY 09/06/16 [History] Lutein 20 mg PO 1800 09/06/16 [History] Metoprolol Succinate [Toprol XL] 50 mg PO DAILY 09/06/16 [History] Multivitamin with Minerals [Multiple Vitamin] 1 tab PO DAILY 09/06/16 [History] Omeprazole 40 mg PO ACBREAKFAST 09/06/16 [History] Simvastatin [Zocor] 10 mg PO DAILY 09/06/16 [History] Vitamin B Complex [B Complex] 1 each PO DAILY 09/06/16 [History] gemfibroziL [Lopid] 600 mg PO BIDAC 09/06/16 [History] hydroCHLOROthiazide [Hydrochlorothiazide] 25 mg PO DAILY 09/06/16 [History] Levothyroxine 150 mcg PO MO 09/09/16 [History] Acetaminophen [Masophen] 1,000 mg PO Q8HR PRN MDD 4000 MG 11/04/17 [History] Furosemide [Lasix] 20 mg PO DAILY 11/04/17 [History] Levothyroxine 75 mcg PO SUTUWETHFRSA 11/04/17 [History] Nitroglycerin [Nitrostat] 0.4 mg SL ASDIRECTED 11/04/17 [History] Potassium Chloride [Klor-Con 10] 10 meq PO DAILY 11/04/17 [History] Ranitidine HCl [Zantac] 150 mg PO DAILY 11/04/17 [History] Coconut Oil 1,000 mg PO BID 11/05/17 [History] Magnesium Oxide [Magnesium] 400 mg PO 1200 11/05/17 [History] Alendronate Sodium [Fosamax] 70 mg PO DAILY 01/25/19 [History] Fish,Saf,Flx,Brg Oils/O3,6,9N2 [Sxql-Mggi-Ykqabc Oil Softgel] 1 cap PO BID 01/25/19 [History] Gabapentin [Neurontin] 300 mg PO BID 01/25/19 [History] Gabapentin [Neurontin] 600 cap PO BEDTIME 01/25/19 [History] Ginkgo Biloba 40 mg PO DAILY 01/25/19 [History] Levofloxacin [Levaquin] 500 mg PO DAILY #10 tablet 01/25/19 [Rx] Loratadine 10 mg PO DAILY 01/25/19 [History] Ondansetron [Zofran ODT] 4 mg PO Q6H PRN #5 tab.dis 01/25/19 [Rx] Ciprofloxacin HCl [Cipro] 500 mg PO BID #10 tablet 07/12/19 [Rx] Ondansetron [Zofran ODT] 4 mg PO Q4H PRN #7 tab.dis 07/12/19 [Rx] Potassium Chloride 40 meq PO TID #3 tablet.er 07/12/19 [Rx] Past Medical History HEENT History: Reports: Cataract, Impaired Vision, Other (See Below) Other HEENT History: DOUBLE VISION, bilat cataracts, Cardiovascular History: Reports: High Cholesterol, Hypertension Respiratory History: Reports: None Gastrointestinal History: Reports: Diverticulosis, GERD, GI Bleed Genitourinary History: Reports: Renal Calculus Other Genitourinary History: PAST KIDNEY STONES. STATES RIGHT KIDNEY DOES NOT FUNCTION. MAINFRAME APPLICATIONS DEVELOPER History: Reports: Other MAINFRAME APPLICATIONS DEVELOPER History: III, PARA III Musculoskeletal History: Reports: Arthritis, Fracture, Osteoarthritis, Other (See Below) Other Musculoskeletal History: BURSITIS OF RIGHT HIP, hx L fx ankle Neurological History: Reports: None Psychiatric History: Reports: Anxiety, Depression Endocrine/Metabolic History: Reports: Hypothyroidism, Obesity/BMI 30+ Hematologic History: Reports: Anemia, Anticoagulation Therapy, Blood Transfusion(s), Iron Deficiency Immunologic History: Reports: None Oncologic (Cancer) History: Reports: None Dermatologic History: Reports: None - Infectious Disease History Infectious Disease History: Reports: Chicken Pox, Measles, Mumps - Past Surgical History Head Surgeries/Procedures: Reports: None HEENT Surgical History: Reports: Adenoidectomy, Tonsillectomy GI Surgical History: Reports: Appendectomy, Cholecystectomy, Colon, Colonoscopy, Colostomy, EGD, Hernia, Abdominal, Other (See Below) Other GI Surgeries/Procedures: PT HAS HAD SEVERAL HERNIA SURGERIES IN THE PAST. STATES MANY COLON SURGERIES INVOLVING COLOSTOMY X 2 R/T LEAKING POST SURGERY. STATES NOW HAS VAGINAL DRAINAGE FROM FISTULA. Female Surgical History: Reports: Hysterectomy, Oophorectomy, Salpingo- Oophorectomy, Other (See Below) Other Female Surgeries/Procedures: CLOSURE OF A VAGINAL FISTULA. Kidney stent placed on 01.19.19 Musculoskeletal Surgical History: Reports: ORIF Other Musculoskeletal Surgeries/Procedures:: L ankle surgery x 2 Social & Family History - Family History Family Medical History: Noncontributory GI: Reports: None - Caffeine Use Caffeine Use: Reports: Soda ED ROS GENERAL - Review of Systems Review Of Systems: See Below Constitutional: Reports: No Symptoms Respiratory: Reports: No Symptoms, Shortness of Breath Cardiovascular: Reports: No Symptoms, Chest Pain GI/Abdominal: Reports: Abdominal Pain, Diarrhea, Nausea. Denies: Anorexia, Distension, Vomiting Musculoskeletal: Reports: No Symptoms Skin: Reports: No Symptoms Neurological: Reports: No Symptoms ED EXAM, GENERAL - Physical Exam Exam: See Below General Appearance: Alert, No Apparent Distress Nose: Normal Inspection Throat/Mouth: Normal Inspection Head: Atraumatic, Normocephalic Neck: Normal Inspection, Supple Respiratory/Chest: No Respiratory Distress, Lungs Clear, Normal Breath Sounds Cardiovascular: Normal Peripheral Pulses, Regular Rate, Rhythm GI/Abdominal: Normal Bowel Sounds, Soft, Tender. No: Distended, Guarding, Rigid, Rebound, Hepatomegaly, Splenomegaly Back Exam: Normal Inspection, Full Range of Motion Extremities: Normal Inspection, Normal Range of Motion, No Pedal Edema Neurological: Alert, Oriented, CN II-XII Intact, No Motor/Sensory Deficits Course - Vital Signs Text/Narrative:: pt is afebrile with nl WBC and no signs of acute abd on exam , labs shows chronic renal insufficiency and UTI , i do feel her abd cramping is secondary to cystitis , recommended no farther workup and treatment for UTI as out-patient. with Macrobid. Last Recorded V/S: Last Vital Signs Temp 36.3 C 05/22/20 10:23 Pulse 70 05/22/20 12:37 Resp 18 05/22/20 12:37 BP 119/69 05/22/20 12:37 Pulse Ox 96 05/22/20 12:37 - Orders/Labs/Meds Orders: Active Orders 24 hr Category Date Time Status CULTURE URINE [RM] Stat Lab 05/22/20 11:20 Received Labs: Laboratory Tests 05/22/20 05/22/20 05/22/20 Range/Units 10:44 10:44 10:44 WBC 9.5 (4.5-12.0) X10-3/uL RBC 3.73 (3.23-5.20) x10(6)uL Hgb 9.3 L (11.5-15.5) g/dL Hct 28.6 L (30.0-51.3) % MCV 76.6 L (80-96) fL MCH 24.9 L (27.7-33.6) pg MCHC 32.5 (32.2-35.4) g/dL RDW 17.2 H (11.5-15.5) % Plt Count 323 (125-369) X10(3)uL MPV 7.8 (7.4-10.4) fL Add Manual Diff Yes Neutrophils % (Manual) 85 H (46-82) % Lymphocytes % (Manual) 9 L (13-37) % Monocytes % (Manual) 6 (4-12) % Anisocytosis Few Microcytosis Few Sodium 139 (135-145) mmol/L Potassium 3.8 (3.5-5.3) mmol/L Chloride 103 (100-110) mmol/L Carbon Dioxide 25 (21-32) mmol/L BUN 35 H D (7-18) mg/dL Creatinine 2.3 H* (0.55-1.02) mg/dL Est Cr Clr Drug Dosing TNP Estimated GFR (MDRD) 21 L (>60) BUN/Creatinine Ratio 15.2 (9-20) Glucose 108 (80-116) mg/dL Calcium 8.3 L (8.6-10.2) mg/dL Total Bilirubin 0.6 (0.1-1.3) mg/dL AST 59 H D (5-25) IU/L ALT 148 H D (12-36) U/L Alkaline Phosphatase 229 H (56-112) IU/L Total Protein 7.3 (6.0-8.0) g/dL Albumin 2.7 L (3.2-4.6) g/dL Globulin 4.6 g/dL Albumin/Globulin Ratio 0.6 Amylase 35 (25-115) U/L Lipase 125 (73-393) U/L Urine Color (YELLOW) Urine Appearance (CLEAR) Urine pH (5.0-6.5) Ur Specific [place] (1.010-1.025) Urine Protein (NEGATIVE) mg/dL Urine Glucose (UA) (NORMAL) mg/dL Urine Ketones (NEGATIVE) mg/dL Urine Occult Blood (NEGATIVE) Urine Nitrite (NEGATIVE) Urine Bilirubin (NEGATIVE) Urine Urobilinogen (NEGATIVE) mg/dL Ur Leukocyte Esterase (NEGATIVE) Urine WBC (0-5) Ur Squamous Epith Cells (NS,R,O) Urine Bacteria (NS) Urine Yeast (NS) 05/22/20 Range/Units 11:20 WBC (4.5-12.0) X10-3/uL RBC (3.23-5.20) x10(6)uL Hgb (11.5-15.5) g/dL Hct (30.0-51.3) % MCV (80-96) fL MCH (27.7-33.6) pg MCHC (32.2-35.4) g/dL RDW (11.5-15.5) % Plt Count (125-369) X10(3)uL MPV (7.4-10.4) fL Add Manual Diff Neutrophils % (Manual) (46-82) % Lymphocytes % (Manual) (13-37) % Monocytes % (Manual) (4-12) % Anisocytosis Microcytosis Sodium (135-145) mmol/L Potassium (3.5-5.3) mmol/L Chloride (100-110) mmol/L Carbon Dioxide (21-32) mmol/L BUN (7-18) mg/dL Creatinine (0.55-1.02) mg/dL Est Cr Clr Drug Dosing Estimated GFR (MDRD) (>60) BUN/Creatinine Ratio (9-20) Glucose (80-116) mg/dL Calcium (8.6-10.2) mg/dL Total Bilirubin (0.1-1.3) mg/dL AST (5-25) IU/L ALT (12-36) U/L Alkaline Phosphatase (56-112) IU/L Total Protein (6.0-8.0) g/dL Albumin (3.2-4.6) g/dL Globulin g/dL Albumin/Globulin Ratio Amylase (25-115) U/L Lipase (73-393) U/L Urine Color Yellow (YELLOW) Urine Appearance Slightly cloudy (CLEAR) Urine pH 5.0 (5.0-6.5) Ur Specific [place] 1.005 L (1.010-1.025) Urine Protein Negative (NEGATIVE) mg/dL Urine Glucose (UA) Normal (NORMAL) mg/dL Urine Ketones Negative (NEGATIVE) mg/dL Urine Occult Blood Negative (NEGATIVE) Urine Nitrite Negative (NEGATIVE) Urine Bilirubin Negative (NEGATIVE) Urine Urobilinogen Normal (NEGATIVE) mg/dL Ur Leukocyte Esterase Large H (NEGATIVE) Urine WBC 75-100 H (0-5) Ur Squamous Epith Cells Few H (NS,R,O) Urine Bacteria Many H (NS) Urine Yeast Few H (NS) Meds: Medications Discontinued Medications Generic Name Dose Route Start Last Admin Trade Name Freq PRN Reason Stop Dose Admin Morphine Sulfate 2 mg 05/22/20 10:54 Morphine IVPUSH 05/22/20 10:55 ONETIME ONE Ondansetron HCl 4 mg 05/22/20 10:54 Zofran IVPUSH 05/22/20 10:55 ONETIME ONE Sodium Chloride 1,000 ml 05/22/20 10:56 Normal Saline IV 05/22/20 10:57 ONETIME ONE Departure - Departure Time of Disposition: 12:40 Disposition: Home, Self-Care 01 Clinical Impression: UTI (urinary tract infection) - Discharge Information Referrals: PCP,None [Ordering Only Provider] - Sepsis Event Note (ED) - Focused Exam Vital Signs: Vital Signs Temp Pulse Resp BP Pulse Ox 05/22/20 12:37 70 18 119/69 96 05/22/20 10:23 36.3 C 70 20 112/57 L 100 - My Orders Last 24 Hours: My Active Orders 05/22/20 11:20 CULTURE URINE [RM] Stat - Assessment/Plan Last 24 Hours: My Active Orders 05/22/20 11:20 CULTURE URINE [RM] Stat
[2020-05-22] MEDS ORDERED: Morphine 2 MG/ML SYRINGE IVPUSH ONE (10:54)
[2020-05-22] MEDS ORDERED: Ondansetron 4 MG/2 ML SDV IVPUSH ONE (10:54)
[2020-05-22] MEDS ORDERED: Sodium Chloride 0.9% 10 ML SDV IV ONE (10:56)
--- NOTE | 2020-05-22 11:35 | CR ---
INDICATION: Abdominal pain. ABDOMEN, TWO VIEW: Five images of the abdomen were obtained in supine and upright projections 05/22/20 and compared with 07/29/18. There has been placement of two ureteral stents on the left since the previous study. There also has been interval fusion at the L4-5 vertebral bodies with rods and pedicle screws appearing intact as visualized. Clips compatible with cholecystectomy are again noted. Dextroconcave scoliosis with rotatory component of moderate degree is noted in the upper middle lumbar spine. Rounded metallic densities are again noted overlying the iliac bones. Multiple phleboliths are noted in the pelvis with evidence of inguinal surgeries bilaterally as previously. Multiple air-fluid levels are scattered throughout the abdomen with some dilatation of what appear to be distal loops of ileum. Air-fluid levels are noted in the colon as well as the small bowel raising question of a generalized paralytic ileus rather than a mechanically obstructive process. This should be correlated clinically, however. Followup studies may be warranted. No other organomegaly, mass lesions or nonvascular pathologic calcifications were identified. IMPRESSION: 1. Multiple air-fluid levels scattered throughout the bowel - large and small bowel with distension of only distal ileal loops and perhaps distal jejunal loops. Findings may be on the basis of a paralytic ileus generalized or severe gastroenteritis. The possibility of a mechanically obstructive process is felt to be less likely. 2. Two ureteral stents are noted on the left. 3. Fusion L4-5 appears intact. 4. Post-cholecystectomy. 5. Post-inguinal surgeries. [facility]
[2020-05-22] MEDS ORDERED: Acetaminophen 500 MG Tab PO ONE (12:55)
[2020-05-22 13:15] VITALS: BP 116/55; PULSE 90
== END 2020-05-22 13:48 | disposition home or self-care (01) ==
LOC: FB.ED 10:23
DX: N39.0 Urinary tract infection, site not specified (principal); E78.00 Pure hypercholesterolemia, unspecified; I10 Essential (primary) hypertension; K21.9 Gastro-esophageal reflux disease without esophagitis; F41.9 Anxiety disorder, unspecified; F32.9 Major depressive disorder, single episode, unspecified; E03.9 Hypothyroidism, unspecified; E66.9 Obesity, unspecified; Z68.31 Body mass index [BMI] 31.0-31.9, adult; Z88.1 Allergy status to other antibiotic agents; Z88.8 Allergy status to other drugs, medicaments and biological substances; Z88.5 Allergy status to narcotic agent
CPT/HCPCS: 36415; 74019; 80053; 81001; 82150; 83690; 85025; 87086; 87088; 87186; 99284; A9270; 99283

== ENCOUNTER 2020-05-24 20:50 | Emergency (ER) | payer MEDICARE, BC ==
[2020-05-24] MEDS ORDERED: diphenhydrAMINE 50 MG/ML SDV IM STA (20:59)
--- NOTE | 2020-05-24 21:27 | EDM.PDOC ---
ED HPI GENERAL MEDICAL PROBLEM - General Stated Complaint: reaction to iv therapy Time Seen by Provider: 05/24/20 21:05 Source of Information: Reports: Patient History Limitations: Reports: No Limitations - History of Present Illness INITIAL COMMENTS - FREE TEXT/NARRATIVE: Patient presented to the ED because of flushing and itching after Vancomycin IV infusion. There is no associated dyspnea, or chocking sensation. - Related Data Allergies Allergy/AdvReac Type Severity Reaction Status Date / Time lisinopril Allergy Unknown Swelling Verified 05/24/20 20:13 amoxicillin [From Augmentin] Allergy Swelling Verified 05/24/20 20:13 clavulanic acid Allergy Swelling Verified 05/24/20 20:13 [From Augmentin] codeine AdvReac Unknown Nausea Verified 05/24/20 20:13 propoxyphene HCl AdvReac Unknown Other Verified 05/24/20 20:13 [From Darvon] Home Meds: Home Meds Ascorbic Acid [C-1000] 1,000 mg PO DAILY 09/06/16 [History] Calcium Carb, Citrate/Vit D3 [Citracal + D ER] 1 each PO BID 09/06/16 [History] Cholecalciferol (Vitamin D3) [Vitamin D3] 2,000 unit PO 1800 09/06/16 [History] Citalopram [Citalopram HBr] 40 mg PO DAILY 09/06/16 [History] Fluticasone Propionate [Flonase] 2 spray NS DAILY PRN 09/06/16 [History] Losartan [Cozaar] 50 mg PO DAILY 09/06/16 [History] Lutein 20 mg PO 1800 09/06/16 [History] Metoprolol Succinate [Toprol XL] 50 mg PO DAILY 09/06/16 [History] Multivitamin with Minerals [Multiple Vitamin] 1 tab PO DAILY 09/06/16 [History] Omeprazole 40 mg PO ACBREAKFAST 09/06/16 [History] Simvastatin [Zocor] 10 mg PO DAILY 09/06/16 [History] Vitamin B Complex [B Complex] 1 each PO DAILY 09/06/16 [History] gemfibroziL [Lopid] 600 mg PO BIDAC 09/06/16 [History] hydroCHLOROthiazide [Hydrochlorothiazide] 25 mg PO DAILY 09/06/16 [History] Levothyroxine 150 mcg PO MO 09/09/16 [History] Acetaminophen [Masophen] 1,000 mg PO Q8HR PRN MDD 4000 MG 11/04/17 [History] Furosemide [Lasix] 20 mg PO DAILY 11/04/17 [History] Levothyroxine 75 mcg PO SUTUWETHFRSA 11/04/17 [History] Nitroglycerin [Nitrostat] 0.4 mg SL ASDIRECTED 11/04/17 [History] Potassium Chloride [Klor-Con 10] 10 meq PO DAILY 11/04/17 [History] Ranitidine HCl [Zantac] 150 mg PO DAILY 11/04/17 [History] Coconut Oil 1,000 mg PO BID 11/05/17 [History] Magnesium Oxide [Magnesium] 400 mg PO 1200 11/05/17 [History] Alendronate Sodium [Fosamax] 70 mg PO DAILY 01/25/19 [History] Fish,Saf,Flx,Brg Oils/O3,6,9N2 [Gzkc-Blwm-Fpzicx Oil Softgel] 1 cap PO BID 01/25/19 [History] Gabapentin [Neurontin] 300 mg PO BID 01/25/19 [History] Gabapentin [Neurontin] 600 cap PO BEDTIME 01/25/19 [History] Ginkgo Biloba 40 mg PO DAILY 01/25/19 [History] Levofloxacin [Levaquin] 500 mg PO DAILY #10 tablet 01/25/19 [Rx] Loratadine 10 mg PO DAILY 01/25/19 [History] Ondansetron [Zofran ODT] 4 mg PO Q6H PRN #5 tab.dis 01/25/19 [Rx] Ciprofloxacin HCl [Cipro] 500 mg PO BID #10 tablet 07/12/19 [Rx] Ondansetron [Zofran ODT] 4 mg PO Q4H PRN #7 tab.dis 07/12/19 [Rx] Potassium Chloride 40 meq PO TID #3 tablet.er 07/12/19 [Rx] Nitrofurantoin Monohyd/M-Cryst [Macrobid 100 mg Capsule] 100 mg PO BID 10 Days #20 capsule 05/22/20 [Rx] Sulfamethoxazole/Trimethoprim [Bactrim Ds Tablet] 1 each PO BID #6 tablet 05/24/20 [Rx] Vancomycin [Vancomycin Cap] 250 mg PO BID #6 cap 05/24/20 [Rx] Past Medical History HEENT History: Reports: Cataract, Impaired Vision, Other (See Below) Other HEENT History: DOUBLE VISION, bilat cataracts, Cardiovascular History: Reports: High Cholesterol, Hypertension Respiratory History: Reports: None Gastrointestinal History: Reports: Diverticulosis, GERD, GI Bleed Genitourinary History: Reports: Renal Calculus Other Genitourinary History: PAST KIDNEY STONES. STATES RIGHT KIDNEY DOES NOT FUNCTION. CARDIOLOGY RN History: Reports: Other CARDIOLOGY RN History: III, PARA III Musculoskeletal History: Reports: Arthritis, Fracture, Osteoarthritis, Other (See Below) Other Musculoskeletal History: BURSITIS OF RIGHT HIP, hx L fx ankle Neurological History: Reports: None Psychiatric History: Reports: Anxiety, Depression Endocrine/Metabolic History: Reports: Hypothyroidism, Obesity/BMI 30+ Hematologic History: Reports: Anemia, Anticoagulation Therapy, Blood Transfusion(s), Iron Deficiency Immunologic History: Reports: None Oncologic (Cancer) History: Reports: None Dermatologic History: Reports: None - Infectious Disease History Infectious Disease History: Reports: Chicken Pox, Measles, Mumps - Past Surgical History Head Surgeries/Procedures: Reports: None HEENT Surgical History: Reports: Adenoidectomy, Tonsillectomy GI Surgical History: Reports: Appendectomy, Cholecystectomy, Colon, Colonoscopy, Colostomy, EGD, Hernia, Abdominal, Other (See Below) Other GI Surgeries/Procedures: PT HAS HAD SEVERAL HERNIA SURGERIES IN THE PAST. STATES MANY COLON SURGERIES INVOLVING COLOSTOMY X 2 R/T LEAKING POST SURGERY. STATES NOW HAS VAGINAL DRAINAGE FROM FISTULA. Female Surgical History: Reports: Hysterectomy, Oophorectomy, Salpingo- Oophorectomy, Other (See Below) Other Female Surgeries/Procedures: CLOSURE OF A VAGINAL FISTULA. Kidney stent placed on 01.19.19 Musculoskeletal Surgical History: Reports: ORIF Other Musculoskeletal Surgeries/Procedures:: L ankle surgery x 2 Social & Family History - Family History Family Medical History: Noncontributory GI: Reports: None - Caffeine Use Caffeine Use: Reports: Soda ED ROS GENERAL - Review of Systems Review Of Systems: See Below Constitutional: Reports: No Symptoms HEENT: Reports: No Symptoms Respiratory: Reports: No Symptoms Cardiovascular: Reports: No Symptoms Endocrine: Reports: No Symptoms GI/Abdominal: Reports: No Symptoms : Reports: No Symptoms Musculoskeletal: Reports: No Symptoms Skin: Reports: Other (pruritus) Neurological: Reports: No Symptoms ED EXAM, SKIN/RASH Exam: See Below Exam Limited By: No Limitations General Appearance: Alert, No Apparent Distress Ears: Normal External Exam, Normal Canal, Hearing Grossly Normal Nose: Normal Inspection, Normal Mucosa, No Blood Throat/Mouth: Normal Inspection, Normal Lips, Normal Teeth, Normal Gums Head: Atraumatic, Normocephalic Neck: Normal Inspection, Supple, Non-Tender, Full Range of Motion Respiratory/Chest: No Respiratory Distress, Lungs Clear, Normal Breath Sounds Cardiovascular: Normal Peripheral Pulses, Regular Rate, Rhythm, No Edema, No Gallop GI/Abdominal: Normal Bowel Sounds, Soft, Non-Tender, No Organomegaly Back Exam: Normal Inspection, Full Range of Motion Extremities: Normal Inspection, Normal Range of Motion, Non-Tender Neurological: Alert, Oriented, CN II-XII Intact, Normal Cognition Psychiatric: Normal Affect Skin: No Rash Course - Vital Signs Text/Narrative:: Benadryl 50 mg IM x1 - Orders/Labs/Meds Meds: Medications Discontinued Medications Generic Name Dose Route Start Last Admin Trade Name Jennifer PRN Reason Stop Dose Admin Diphenhydramine HCl 50 mg 05/24/20 20:59 05/24/20 21:05 Benadryl IM 05/24/20 21:00 50 mg NOW STA Administration Departure - Departure Time of Disposition: 21:30 Disposition: Home, Self-Care 01 Condition: Good Clinical Impression: Medication side effect - Discharge Information Instructions: Drug Rash Referrals: Scot Domingo MD [Primary Care Provider] - Forms: ED Department Discharge Additional Instructions: Take benadryl 25 mg every 4-6 hours as needed for itching if you still itch after the IV/IM benadryl Follow up as needed
[2020-05-24 23:46] VITALS: BP 119/92; PULSE 81
== END 2020-05-24 21:35 | disposition home or self-care (01) ==
LOC: FB.ED 20:50
DX: L29.9 Pruritus, unspecified (principal); T36.8X5A Adverse effect of other systemic antibiotics, initial encounter; E78.00 Pure hypercholesterolemia, unspecified; I10 Essential (primary) hypertension; K21.9 Gastro-esophageal reflux disease without esophagitis; M19.90 Unspecified osteoarthritis, unspecified site; F41.9 Anxiety disorder, unspecified; F32.9 Major depressive disorder, single episode, unspecified; E03.9 Hypothyroidism, unspecified; E66.9 Obesity, unspecified; Z79.01 Long term (current) use of anticoagulants; Z90.49 Acquired absence of other specified parts of digestive tract; Z90.710 Acquired absence of both cervix and uterus; Z90.722 Acquired absence of ovaries, bilateral; Z88.8 Allergy status to other drugs, medicaments and biological substances; Z88.1 Allergy status to other antibiotic agents; Z88.5 Allergy status to narcotic agent; Z79.899 Other long term (current) drug therapy
CPT/HCPCS: 96372; 99283; J1200; 99282

== ENCOUNTER 2020-06-26 09:25 | Inpatient (IN) | payer MEDICARE, BC ==
[2020-06-26] MEDS ORDERED: Sodium Chloride 0.9% 1,000 ML IV ONE ×2 (10:43→12:13)
--- NOTE | 2020-06-26 11:40 | EDM.PDOC ---
ED HPI GENERAL MEDICAL PROBLEM - General Chief Complaint: General Stated Complaint: COVID SYMPTOMS Time Seen by Provider: 06/26/20 10:30 Source of Information: Reports: Patient History Limitations: Reports: No Limitations - History of Present Illness INITIAL COMMENTS - FREE TEXT/NARRATIVE: c/o loose stools, cough and fever pt has had a h/o loose stools off-and-on for years, has a h/o diverticulosis and had one ft colon resection d/t "diverticulosis" per pt a number of yrs ago also h/o SBO, abd pain, colitis, dehydration and CKD in past. Pt's states R kidney "is not working" and L kidney "is working only 30%." has had 5-6 soft brown BMs daily x 2-3w, pt called PCP Dr Domingo 2-3w ago and advised to take metamucil and Imodium AD which she does not think helped no blood or mucus 6w ago pt had UTI with >100k enterocuccus sensitive to daptomycin, gent, vanco and resistant to all else. Also with E coli > 100k sensitivie to cefotax, ceftriax, levo, meorpen, nitrofur, TET, tobra, tmp/smx, pip/taxo and resistant to amox, Aug, cefazolin. 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 CxR with cardiomegaly, no infiltrate/effusion d/w Tamie in pharmacy who said that daptomycin is an option (to cover for possible Enterococcus), will adjust dose to q48 for CKD pt poor historian had emesis x 1 ed ago, no N now drank 4 glasses water today, took 6 bites of cereal, no other solids, poor appetite - Related Data Allergies Allergy/AdvReac Type Severity Reaction Status Date / Time lisinopril Allergy Unknown Swelling Verified 06/26/20 14:50 amoxicillin [From Augmentin] Allergy Swelling Verified 06/26/20 14:50 clavulanic acid Allergy Swelling Verified 06/26/20 14:50 [From Augmentin] codeine AdvReac Unknown Nausea Verified 06/26/20 14:50 propoxyphene HCl AdvReac Unknown Other Verified 06/26/20 14:50 [From Darvon] Home Meds: Home Meds Citalopram [Citalopram HBr] 40 mg PO DAILY 09/06/16 [History] Fluticasone Propionate [Flonase] 2 spray NS DAILY PRN 09/06/16 [History] Lutein 20 mg PO 1800 09/06/16 [History] Metoprolol Succinate [Toprol XL] 50 mg PO DAILY 09/06/16 [History] Vitamin B Complex [B Complex] 1 each PO DAILY 09/06/16 [History] Levothyroxine 150 mcg PO MO 09/09/16 [History] Acetaminophen [Masophen] 1,000 mg PO Q8HR PRN MDD 4000 MG 11/04/17 [History] Furosemide [Lasix] 20 mg PO DAILY 11/04/17 [History] Levothyroxine 75 mcg PO SUTUWETHFRSA 11/04/17 [History] Nitroglycerin [Nitrostat] 0.4 mg SL ASDIRECTED 11/04/17 [History] Potassium Chloride [Klor-Con 10] 10 meq PO DAILY 11/04/17 [History] Coconut Oil 1,000 mg PO BID 11/05/17 [History] Gabapentin [Neurontin] 300 mg PO BID 01/25/19 [History] Gabapentin [Neurontin] 600 cap PO BEDTIME 01/25/19 [History] Losartan [Cozaar] 25 mg PO DAILY 06/26/20 [History] Pantoprazole Sodium [Protonix] 40 mg PO ACBREAKFAST 06/26/20 [History] Simvastatin [Zocor] 10 mg PO BEDTIME 06/26/20 [History] cephALEXin [Cephalexin] 250 mg PO DAILY 06/26/20 [History] Past Medical History HEENT History: Reports: Cataract, Impaired Vision, Other (See Below) Other HEENT History: DOUBLE VISION, bilat cataracts, Cardiovascular History: Reports: High Cholesterol, Hypertension Respiratory History: Reports: None Gastrointestinal History: Reports: Diverticulosis, GERD, GI Bleed Genitourinary History: Reports: Renal Calculus Other Genitourinary History: PAST KIDNEY STONES. STATES RIGHT KIDNEY DOES NOT FUNCTION. CLOTH CALENDER History: Reports: Other CLOTH CALENDER History: III, PARA III Musculoskeletal History: Reports: Arthritis, Fracture, Osteoarthritis, Other (See Below) Other Musculoskeletal History: BURSITIS OF RIGHT HIP, hx L fx ankle Neurological History: Reports: None Psychiatric History: Reports: Anxiety, Depression Endocrine/Metabolic History: Reports: Hypothyroidism, Obesity/BMI 30+ Hematologic History: Reports: Anemia, Anticoagulation Therapy, Blood Transfusion(s), Iron Deficiency Immunologic History: Reports: None Oncologic (Cancer) History: Reports: None Dermatologic History: Reports: None - Infectious Disease History Infectious Disease History: Reports: Chicken Pox, Measles, Mumps - Past Surgical History Head Surgeries/Procedures: Reports: None HEENT Surgical History: Reports: Adenoidectomy, Tonsillectomy GI Surgical History: Reports: Appendectomy, Cholecystectomy, Colon, Colonoscopy, Colostomy, EGD, Hernia, Abdominal, Other (See Below) Other GI Surgeries/Procedures: PT HAS HAD SEVERAL HERNIA SURGERIES IN THE PAST. STATES MANY COLON SURGERIES INVOLVING COLOSTOMY X 2 R/T LEAKING POST SURGERY. STATES NOW HAS VAGINAL DRAINAGE FROM FISTULA. Female Surgical History: Reports: Hysterectomy, Oophorectomy, Salpingo- Oophorectomy, Other (See Below) Other Female Surgeries/Procedures: CLOSURE OF A VAGINAL FISTULA. Kidney stent placed on 01.19.19 Musculoskeletal Surgical History: Reports: ORIF Other Musculoskeletal Surgeries/Procedures:: L ankle surgery x 2 Social & Family History - Family History Family Medical History: Noncontributory GI: Reports: None - Caffeine Use Caffeine Use: Reports: Soda ED ROS GENERAL - Review of Systems Review Of Systems: See Below Constitutional: Reports: No Symptoms HEENT: Reports: No Symptoms Respiratory: Reports: No Symptoms Cardiovascular: Reports: No Symptoms Endocrine: Reports: No Symptoms GI/Abdominal: Reports: Abdominal Pain, Diarrhea, Decreased Appetite, Nausea, Vomiting : Reports: No Symptoms Musculoskeletal: Reports: No Symptoms Skin: Reports: No Symptoms Neurological: Reports: No Symptoms Psychiatric: Reports: No Symptoms Hematologic/Lymphatic: Reports: No Symptoms Immunologic: Reports: No Symptoms ED EXAM, GENERAL - Physical Exam Exam: See Below Exam Limited By: No Limitations General Appearance: Alert, WD/WN, No Apparent Distress, Other (alert, pleasant, talking on cell phone, nontoxic, not appearing ill, normal speech, good eye contact, resting supine on bed) Eye Exam: Bilateral Eye: EOMI, PERRL Ears: Normal External Exam, Normal Canal, Hearing Grossly Normal Nose: Normal Inspection, Normal Mucosa, No Blood Throat/Mouth: Normal Inspection, Normal Lips, Normal Teeth, Normal Gums, Normal Oropharynx, Normal Voice, No Airway Compromise Head: Atraumatic, Normocephalic Neck: Normal Inspection, Supple, Non-Tender, Full Range of Motion. No: Lymphadenopathy (R), Lymphadenopathy (L) Respiratory/Chest: No Respiratory Distress, Lungs Clear, Normal Breath Sounds, No Accessory Muscle Use, Chest Non-Tender Cardiovascular: Regular Rate, Rhythm, No Edema, No Gallop, No JVD, Other (2/6 [place] at [facility]) GI/Abdominal: Normal Bowel Sounds, Soft, Distended, Tender, Other (mild distention, mild 1+ tender throughout, not localized, no CVAT, good BS x 4, no guard/rebound). No: Rebound, Hepatomegaly, Splenomegaly Back Exam: Normal Inspection, Full Range of Motion. No: CVA Tenderness (R), CVA Tenderness (L) Extremities: Normal Inspection, Normal Range of Motion, Non-Tender, No Pedal Edema Neurological: Alert, Oriented, CN II-XII Intact, Normal Cognition, No Motor/Sensory Deficits Psychiatric: Normal Affect, Normal Mood Skin Exam: Warm, Dry, Intact, Normal Color, No Rash Lymphatic: No Adenopathy Course - Vital Signs Last Recorded V/S: Last Vital Signs Temp 37.4 C 06/26/20 13:10 Pulse 81 06/26/20 13:10 Resp 16 06/26/20 13:10 BP 101/42 L 06/26/20 13:10 Pulse Ox 100 06/26/20 13:10 - Orders/Labs/Meds Orders: Active Orders 24 hr Category Date Time Status EKG Documentation Completion [RC] ASDIRECTED Care 06/26/20 13:02 Active Abdomen Pelvis wo Cont [CT] Stat Exams 06/26/20 11:38 Taken Chest 2V [CR] Stat Exams 06/26/20 10:53 Taken C DIFFICILE AG/TOXIN W/REFLEX [RM] Stat Lab 06/26/20 11:44 Results CLOSTRIDIUM DIFF PCR CONF [RM] Stat Lab 06/26/20 11:44 Results CULTURE BLOOD [BC] Urgent Lab 06/26/20 12:30 Received CULTURE BLOOD [BC] Urgent Lab 06/26/20 12:35 Received CULTURE URINE [RM] Stat Lab 06/26/20 11:44 Received DAPTOmycin [Cubicin] 320 mg Med 06/26/20 13:30 Active Sodium Chloride 0.9% [Normal Saline] 50 ml IV Q48H Blood Culture x2 Reflex Set [OM.PC] Urgent Oth 06/26/20 12:15 Ordered EKG 12 Lead [EK] Routine Ther 06/26/20 13:02 Ordered Medication Orders Daptomycin 320 mg/ Sodium (Chloride) 50 mls @ 100 mls/hr IV Q48H WANDA Last Admin: 06/26/20 13:52 Dose: 100 mls/hr Documented by: NAMRATA Labs: Laboratory Tests 06/26/20 06/26/20 06/26/20 Range/Units 09:50 10:55 10:55 WBC 18.3 H (4.5-12.0) X10-3/uL RBC 3.33 (3.23-5.20) x10(6)uL Hgb 8.5 L (11.5-15.5) g/dL Hct 26.0 L (30.0-51.3) % MCV 77.8 L (80-96) fL MCH 25.4 L (27.7-33.6) pg MCHC 32.6 (32.2-35.4) g/dL RDW 17.7 H (11.5-15.5) % Plt Count 301 (125-369) X10(3)uL MPV 7.9 (7.4-10.4) fL Add Manual Diff Yes Neutrophils % (Manual) 92 H (46-82) % Lymphocytes % (Manual) 4 L (13-37) % Monocytes % (Manual) 4 (4-12) % Poikilocytosis Few Anisocytosis Few Microcytosis Few Sodium 137 (135-145) mmol/L Potassium 3.2 L (3.5-5.3) mmol/L Chloride 103 (100-110) mmol/L Carbon Dioxide 20 L (21-32) mmol/L BUN 40 H (7-18) mg/dL Creatinine 2.6 H* (0.55-1.02) mg/dL Est Cr Clr Drug Dosing TNP Estimated GFR (MDRD) 18 L (>60) BUN/Creatinine Ratio 15.4 (9-20) Glucose 124 H (80-116) mg/dL Lactic Acid (0.4-2.0) mmol/L Calcium 7.5 L (8.6-10.2) mg/dL Magnesium (1.8-2.5) mg/dL Total Bilirubin 0.7 (0.1-1.3) mg/dL AST 29 H D (5-25) IU/L ALT 79 H D (12-36) U/L Alkaline Phosphatase 191 H (56-112) IU/L Troponin I (4.0-60.3) pg/mL C-Reactive Protein (0.5-0.9) mg/dL NT-Pro-B Natriuret Pep (<=450) pg/mL Total Protein 6.8 (6.0-8.0) g/dL Albumin 2.3 L (3.2-4.6) g/dL Globulin 4.5 g/dL Albumin/Globulin Ratio 0.5 Urine Color (YELLOW) Urine Appearance (CLEAR) Urine pH (5.0-6.5) Ur Specific [place] (1.010-1.025) Urine Protein (NEGATIVE) mg/dL Urine Glucose (UA) (NORMAL) mg/dL Urine Ketones (NEGATIVE) mg/dL Urine Occult Blood (NEGATIVE) Urine Nitrite (NEGATIVE) Urine Bilirubin (NEGATIVE) Urine Urobilinogen (NEGATIVE) mg/dL Ur Leukocyte Esterase (NEGATIVE) Urine RBC (0-5) Urine WBC (0-5) Ur Squamous Epith Cells (NS,R,O) Urine Bacteria (NS) Urine Yeast (NS) SARS-CoV-2 RNA (AVA) Negative (NEGATIVE) 06/26/20 06/26/20 06/26/20 Range/Units 10:55 11:44 12:35 WBC (4.5-12.0) X10-3/uL RBC (3.23-5.20) x10(6)uL Hgb (11.5-15.5) g/dL Hct (30.0-51.3) % MCV (80-96) fL MCH (27.7-33.6) pg MCHC (32.2-35.4) g/dL RDW (11.5-15.5) % Plt Count (125-369) X10(3)uL MPV (7.4-10.4) fL Add Manual Diff Neutrophils % (Manual) (46-82) % Lymphocytes % (Manual) (13-37) % Monocytes % (Manual) (4-12) % Poikilocytosis Anisocytosis Microcytosis Sodium (135-145) mmol/L Potassium (3.5-5.3) mmol/L Chloride (100-110) mmol/L Carbon Dioxide (21-32) mmol/L BUN (7-18) mg/dL Creatinine (0.55-1.02) mg/dL Est Cr Clr Drug Dosing Estimated GFR (MDRD) (>60) BUN/Creatinine Ratio (9-20) Glucose (80-116) mg/dL Lactic Acid 0.5 (0.4-2.0) mmol/L Calcium (8.6-10.2) mg/dL Magnesium (1.8-2.5) mg/dL Total Bilirubin (0.1-1.3) mg/dL AST (5-25) IU/L ALT (12-36) U/L Alkaline Phosphatase (56-112) IU/L Troponin I 6.0 (4.0-60.3) pg/mL C-Reactive Protein 22.4 H* (0.5-0.9) mg/dL NT-Pro-B Natriuret Pep (<=450) pg/mL Total Protein (6.0-8.0) g/dL Albumin (3.2-4.6) g/dL Globulin g/dL Albumin/Globulin Ratio Urine Color Yellow (YELLOW) Urine Appearance Cloudy (CLEAR) Urine pH 5.0 (5.0-6.5) Ur Specific [place] 1.010 (1.010-1.025) Urine Protein Trace (NEGATIVE) mg/dL Urine Glucose (UA) Normal (NORMAL) mg/dL Urine Ketones Negative (NEGATIVE) mg/dL Urine Occult Blood Moderate H (NEGATIVE) Urine Nitrite Negative (NEGATIVE) Urine Bilirubin Negative (NEGATIVE) Urine Urobilinogen Normal (NEGATIVE) mg/dL Ur Leukocyte Esterase Large H (NEGATIVE) Urine RBC 20-30 H (0-5) Urine WBC >100 H (0-5) Ur Squamous Epith Cells Few H (NS,R,O) Urine Bacteria Many H (NS) Urine Yeast Moderate H (NS) SARS-CoV-2 RNA (AVA) (NEGATIVE) 06/26/20 06/26/20 Range/Units 13:08 13:08 WBC (4.5-12.0) X10-3/uL RBC (3.23-5.20) x10(6)uL Hgb (11.5-15.5) g/dL Hct (30.0-51.3) % MCV (80-96) fL MCH (27.7-33.6) pg MCHC (32.2-35.4) g/dL RDW (11.5-15.5) % Plt Count (125-369) X10(3)uL MPV (7.4-10.4) fL Add Manual Diff Neutrophils % (Manual) (46-82) % Lymphocytes % (Manual) (13-37) % Monocytes % (Manual) (4-12) % Poikilocytosis Anisocytosis Microcytosis Sodium (135-145) mmol/L Potassium (3.5-5.3) mmol/L Chloride (100-110) mmol/L Carbon Dioxide (21-32) mmol/L BUN (7-18) mg/dL Creatinine (0.55-1.02) mg/dL Est Cr Clr Drug Dosing Estimated GFR (MDRD) (>60) BUN/Creatinine Ratio (9-20) Glucose (80-116) mg/dL Lactic Acid (0.4-2.0) mmol/L Calcium (8.6-10.2) mg/dL Magnesium 1.6 L (1.8-2.5) mg/dL Total Bilirubin (0.1-1.3) mg/dL AST (5-25) IU/L ALT (12-36) U/L Alkaline Phosphatase (56-112) IU/L Troponin I (4.0-60.3) pg/mL C-Reactive Protein (0.5-0.9) mg/dL NT-Pro-B Natriuret Pep 2390 H* (<=450) pg/mL Total Protein (6.0-8.0) g/dL Albumin (3.2-4.6) g/dL Globulin g/dL Albumin/Globulin Ratio Urine Color (YELLOW) Urine Appearance (CLEAR) Urine pH (5.0-6.5) Ur Specific [place] (1.010-1.025) Urine Protein (NEGATIVE) mg/dL Urine Glucose (UA) (NORMAL) mg/dL Urine Ketones (NEGATIVE) mg/dL Urine Occult Blood (NEGATIVE) Urine Nitrite (NEGATIVE) Urine Bilirubin (NEGATIVE) Urine Urobilinogen (NEGATIVE) mg/dL Ur Leukocyte Esterase (NEGATIVE) Urine RBC (0-5) Urine WBC (0-5) Ur Squamous Epith Cells (NS,R,O) Urine Bacteria (NS) Urine Yeast (NS) SARS-CoV-2 RNA (AVA) (NEGATIVE) Meds: Medications Generic Name Dose Route Start Last Admin Trade Name Freq PRN Reason Stop Dose Admin Daptomycin 320 mg/ Sodium 50 mls @ 100 mls/hr 06/26/20 13:30 06/26/20 13:52 Chloride IV 100 mls/hr Q48H WANDA Administration Discontinued Medications Generic Name Dose Route Start Last Admin Trade Name Freq PRN Reason Stop Dose Admin Sodium Chloride 1,000 mls @ 999 mls/hr 06/26/20 10:43 06/26/20 11:00 Normal Saline IV 06/26/20 11:43 999 mls/hr .BOLUS ONE Administration Sodium Chloride 1,000 mls @ 999 mls/hr 06/26/20 12:13 06/26/20 13:09 Normal Saline IV 06/26/20 13:13 999 mls/hr .BOLUS ONE Administration Levofloxacin/Dextrose 500 mg/ 100 mls @ 100 mls/hr 06/26/20 13:25 Premix IV 06/26/20 14:24 ONETIME ONE Potassium Chloride 40 meq 06/26/20 12:14 06/26/20 13:07 Klor-Con M20 PO 06/26/20 12:15 40 meq ONETIME ONE Administration - Re-Assessments/Exams Free Text/Narrative Re-Assessment/Exam: 06/26/20 14:56 L ureteral stent appears to be proximate cause of UTI, no clinical evidence of pyelo altho does have WBC 18k and L shift, no bands will tx with daptomycin for h/o enterococcus and with levo for h/o E coli no definite of evidence of intra-abdominal abscess or diverticulitis or pyelo on CT BC x 2 obtained altho pt does not appear toxic pt reluctantly agreed to be admitted, d/w Dr Cheatham who accepted and requested that I put in holding orders Free Text/Narrative Re-Assessment/Exam: 06/26/20 15:05 no prior CV w/u, has had mild inc'd BNP in past, now marked inc'd BNP with cardiomegaly, EKG unremarkable without ST change or voltage criteria for LVH will order cardiac echo which are typically done on and Fri, will be a candidate for outpt cardiology evaluation accepted by Dr Cheatham Departure - Departure Time of Disposition: 13:45 Disposition: Admitted As Inpatient 64 Condition: Good Clinical Impression: Complicated UTI (urinary tract infection), Stenosis of left ureter, Acute on chronic renal failure, Hypomagnesemia, Hypokalemia, Leukocytosis, Left shift, Microcytic hypochromic anemia, Retroperitoneal fibrosis, Ileus, Yeast cystitis, Elevated liver function tests, Cardiomegaly, Elevated d-dimer, Low bicarbonate level, Elevated C-reactive protein (CRP), Hypoalbuminemia, Fever - Discharge Information *PRESCRIPTION DRUG MONITORING PROGRAM REVIEWED*: Not Applicable *COPY OF PRESCRIPTION DRUG MONITORING REPORT IN PATIENT ARELY: Not Applicable Sepsis Event Note (ED) - Evaluation Sepsis Screening Result: No Definite Risk - Focused Exam Vital Signs: Vital Signs Temp Pulse Resp BP Pulse Ox 06/26/20 13:10 37.4 C 81 16 101/42 L 100 06/26/20 13:09 37.4 C 81 16 101/42 L 100 06/26/20 10:00 37.8 C 96 19 118/53 L 100 - My Orders Last 24 Hours: My Active Orders 06/26/20 10:53 Chest 2V [CR] Stat 06/26/20 11:38 Abdomen Pelvis wo Cont [CT] Stat 06/26/20 11:44 C DIFFICILE AG/TOXIN W/REFLEX [RM] Stat CLOSTRIDIUM DIFF PCR CONF [RM] Stat CULTURE URINE [RM] Stat 06/26/20 12:15 Blood Culture x2 Reflex Set [OM.PC] Urgent 06/26/20 12:30 CULTURE BLOOD [BC] Urgent 06/26/20 12:35 CULTURE BLOOD [BC] Urgent 06/26/20 13:02 EKG Documentation Completion [RC] ASDIRECTED EKG 12 Lead [EK] Routine 06/26/20 13:30 DAPTOmycin [Cubicin] 320 mg Sodium Chloride 0.9% [Normal Saline] 50 ml IV Q48H - Assessment/Plan Last 24 Hours: My Active Orders 06/26/20 10:53 Chest 2V [CR] Stat 06/26/20 11:38 Abdomen Pelvis wo Cont [CT] Stat 06/26/20 11:44 C DIFFICILE AG/TOXIN W/REFLEX [RM] Stat CLOSTRIDIUM DIFF PCR CONF [RM] Stat CULTURE URINE [RM] Stat 06/26/20 12:15 Blood Culture x2 Reflex Set [OM.PC] Urgent 06/26/20 12:30 CULTURE BLOOD [BC] Urgent 06/26/20 12:35 CULTURE BLOOD [BC] Urgent 06/26/20 13:02 EKG Documentation Completion [RC] ASDIRECTED EKG 12 Lead [EK] Routine 06/26/20 13:30 DAPTOmycin [Cubicin] 320 mg Sodium Chloride 0.9% [Normal Saline] 50 ml IV Q48H
[2020-06-26] MEDS ORDERED: Potassium Chloride 20 MEQ Tab.ER PO ONE (12:14)
[2020-06-26] MEDS ORDERED: DAPTOmycin 500 MG Vial IV SCH (13:00)
[2020-06-26] MEDS ORDERED: Levofloxacin/Dextrose 5%-Water 500 MG in Premix Bag 1 BAG IV ONE (13:25)
--- NOTE | 2020-06-26 15:09 | CR ---
INDICATION: Cough x2 weeks, fever x1 day, COVID negative. CHEST TWO VIEWS: Two PA views and a lateral view of the chest were obtained 06/26/20 and compared with 01/31/17 and 08/17/11. The heart appears to be at the upper limits of normal in size or slightly enlarged with possible minimal LVE. The aorta is tortuous. A mild dextroconvex scoliosis is noted at the lower thoracic spine. A definite active infiltrate or effusion was not identified with pulmonary markings very similar to the previous examination of 2017. However, there is bronchial wall cuffing at the lung bases of mild degree, which may be on the basis of fibrosis and/or active peribronchial disease, as should be correlated clinically. Localized eventration of the right hemidiaphragm is noted anteriorly as previously. There is prominence at the superior mediastinum on the right compatible with tortuous brachiocephalic vessels. IMPRESSION: 1. No definite acute process - bronchial wall cuffing is noted - correlate clinically. 2. Probable ASHD. 3. Mild scoliosis. MTDD
[2020-06-26] MEDS ORDERED: Magnesium Sulfate/Water 2 GM/50 ML Premix Bag IV ONE (15:13)
[2020-06-26] MEDS ORDERED: Potassium Chloride 20 MEQ Tab.ER PO SCH (15:15)
[2020-06-26] MEDS ORDERED: Nitroglycerin 0.4 MG Tab.SL SL PRN (15:15)
--- NOTE | 2020-06-26 15:19 | CT ---
INDICATION: Diarrhea and cramping x2 weeks, fever x1 day, history of small bowel obstruction, history of diverticulitis with resection of one foot of bowel. COVID negative. Chronic kidney disease with creatinine of 2.6. CT ABDOMEN AND PELVIS WITHOUT CONTRAST: Spiral 2.5 mm axial sections were obtained through the abdomen and pelvis without contrast with sagittal and coronal reconstructions 06/26/20 and compared with 12/23/18. Total exam DLP was 1020.96 mGy-cm. Coronary artery calcification is noted. The heart is enlarged. No pericardial effusion was seen. Some minimal strands of density are noted at the lung bases, which may be atelectatic and/or fibrotic in nature. No definite active infiltrate or effusion was seen. No nodule or mass was seen in the lower lung jones or pleural spaces visualized. As visualized without IV contrast, the upper abdominal organs revealed the liver to have a grossly normal appearance with evidence of cholecystectomy - gallbladder is absent. The spleen was unremarkable. The pancreas appears grossly normal. Common bile duct was normal in caliber in the head of the pancreas. A superiorly atrophic right kidney is noted with hydronephrosis and proximal to mid hydroureter down to a level of extensive peritoneal fibrosis likely producing the obstructive uropathy. Similar finding is noted on the left, except now there is improvement of the dilatation of the left pyelocaliceal system and ureter due to an indwelling ureteral stent with pigtails at the renal pelvis and urinary bladder. The appendix and uterus are absent compatible with history of appendectomy and hysterectomy. Evidence of colon resection is noted. The extensive lower abdomen - retroperitoneal and peritoneal fibrosis is again noted. There appears to be thickening of the urinary bladder wall, which may be on the basis of cystitis, but should be correlated clinically. Fluid-filled loops of bowel are noted with air-fluid levels, which may be on the basis of paralytic ileus or possibly a process such as gastroenteritis. This appearance is generalized throughout the bowel and is seen both in large and small bowel loops. No gross distention of the bowel loops was identified, however. Stool and gas are noted in the rectum. A ventral hernia to the right of midline in the mid pelvis area is again noted, including only fat. A mild dextroconcave scoliosis of the lower middle lumbar spine is noted. There is now noted a fusion with rods and pedicle screws appearing intact atthe L4-5 level. A disk spacer is also noted in place. There is some narrowing of the L3-4 disk space, which was present previously. Hypertrophic spurring off the L3 through S1 vertebral bodies is moderate and relatively mild above that level at L2-3. No mass lesions, organomegaly, or free fluid collections were identified in the abdomen or pelvis. While a definite abscess is not identified,in the iliopsoas area on the left, there is again noted what most likely represents a bowel loop encased in retroperitoneal and intraperitoneal fibrosis. An abscess is felt to be much less likely with this appearance - it appears fairly similar to the previous examination in that area. IMPRESSION: 1. Fluid-filled loops of small bowel and large bowel with air-fluid levels suggesting paralytic ileus or possibly a process such as gastroenteritis. No definite mechanically obstructive process is noted, although there is some narrowing of bowel due to retroperitoneal - intraperitoneal fibrosis of severe degree. 2. Atrophic appearing right kidney with improvement in the left kidney due to placement of a stent. 3. Post cholecystectomy. 4. Post hysterectomy. 5. ASD/ASHD with cardiomegaly. 6. Fusion L4-5 with mild scoliosis and hypertrophic degenerative changes L2 through L5-S1 and also a mild dextroconcave scoliosis. 7. Some thickening of the wall of the urinary bladder is noted, which could be on the basis of cystitis. Report was called to Dr. López at 1234 hours. [facility] [place] [facility]
[2020-06-26] MEDS ORDERED: Ondansetron 4 MG/2 ML SDV IV PRN (15:26)
[2020-06-26] MEDS ORDERED: diphenhydrAMINE 50 MG/ML SDV IVPUSH ONE (15:54)
--- NOTE | 2020-06-26 15:59 | PCM.SN.2 ---
- Free Text/Narrative Note: slight itch after IV levo started, runs for 1h, doubt true allergy, possibly minor side effect will give Benadryl 25 mg IV and Solu-Medrol 125 mg IV as precaution
[2020-06-26] MEDS ORDERED: Magnesium Sulfate/Water 2 GM/50 ML BAG IV ONE (16:00)
[2020-06-26] MEDS ORDERED: methylPREDNISolone Sodium Succinate 125 MG/2 ML SDV IVPUSH ONE (16:00)
[2020-06-26] MEDS: Enoxaparin 30 MG/0.3 ML Syringe SUBCUT SCH (16:08)
[2020-06-26] MEDS: Potassium Chloride 20 MEQ Tab.ER PO SCH ×2 (16:11→19:59)
[2020-06-26] MEDS: Acetaminophen 325 MG Tab PO SCH ×2 (16:12→20:00)
--- NOTE | 2020-06-26 18:35 | PCM.HP.2 ---
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 She has minimally functioning kidneys. She's had about a week history of diarrhea off and on although she says she has that. She's had abdominal cramping. She's had a all resection for diverticulitis in the past per she was found to the ER to have a UTI. 6 weeks ago she had a UTI with enterococcus that was sensitive to daptomycin and Escherichia coli that was sensitive to Cipro. She was treated and sent home. She denies fevers, chills although she states they checked her temperature today and was elevated. She denies dysuria, pyuria, hematuria, blood in the stool. She had a little bit of cold little congestion and cough she thought maybe she had COVID-19 very Covid test was negative - Related Data Allergies/Adverse Reactions: Allergies Allergy/AdvReac Type Severity Reaction Status Date / Time lisinopril Allergy Unknown Swelling Verified 06/26/20 14:50 amoxicillin [From Augmentin] Allergy Swelling Verified 06/26/20 14:50 clavulanic acid Allergy Swelling Verified 06/26/20 14:50 [From Augmentin] codeine AdvReac Unknown Nausea Verified 06/26/20 14:50 propoxyphene HCl AdvReac Unknown Other Verified 06/26/20 14:50 [From Darvon] Home Medications: Home Meds Citalopram [Citalopram HBr] 40 mg PO DAILY 09/06/16 [History] Fluticasone Propionate [Flonase] 2 spray NASBOTH DAILY PRN 09/06/16 [History] Lutein 20 mg PO 1800 09/06/16 [History] Metoprolol Succinate [Toprol XL] 50 mg PO DAILY 09/06/16 [History] Vitamin B Complex [B Complex] 1 each PO DAILY 09/06/16 [History] Levothyroxine 112.5 mcg PO LANDIN 09/09/16 [History] Acetaminophen [Masophen] 1,000 mg PO Q8H PRN MDD 4000 MG 11/04/17 [History] Furosemide [Lasix] 20 mg PO MOTUWEFRSA 11/04/17 [History] Levothyroxine 75 mcg PO MOTUWETHFRSA 11/04/17 [History] Nitroglycerin [Nitrostat] 0.4 mg SL ASDIRECTED 11/04/17 [History] Potassium Chloride [Klor-Con 10] 10 meq PO DAILY 11/04/17 [History] Coconut Oil 1,000 mg PO BIDMEALS 11/05/17 [History] Gabapentin [Neurontin] 600 mg PO BID@08,14 01/25/19 [History] Gabapentin [Neurontin] 900 mg PO BEDTIME 01/25/19 [History] Losartan [Cozaar] 25 mg PO DAILY 06/26/20 [History] Pantoprazole Sodium [Protonix] 40 mg PO ACBREAKFAST 06/26/20 [History] Simvastatin [Zocor] 10 mg PO BEDTIME 06/26/20 [History] cephALEXin [Cephalexin] 250 mg PO DAILY 06/26/20 [History] Past Medical History HEENT History: Reports: Cataract, Impaired Vision, Other (See Below) Other HEENT History: DOUBLE VISION, bilat cataracts, Cardiovascular History: Reports: High Cholesterol, Hypertension Respiratory History: Reports: None Gastrointestinal History: Reports: Diverticulosis, GERD, GI Bleed Genitourinary History: Reports: Renal Calculus Other Genitourinary History: PAST KIDNEY STONES. STATES RIGHT KIDNEY DOES NOT FUNCTION. [employer] History: Reports: Other OB/BYN History: III, PARA III Musculoskeletal History: Reports: Arthritis, Fracture, Osteoarthritis, Other (See Below) Other Musculoskeletal History: BURSITIS OF RIGHT HIP, hx L fx ankle Neurological History: Reports: None Psychiatric History: Reports: Anxiety, Depression Endocrine/Metabolic History: Reports: Hypothyroidism, Obesity/BMI 30+ Hematologic History: Reports: Anemia, Anticoagulation Therapy, Blood Transfusion(s), Iron Deficiency Immunologic History: Reports: None Oncologic (Cancer) History: Reports: None Dermatologic History: Reports: None - Infectious Disease History Infectious Disease History: Reports: Chicken Pox, Measles, Mumps - Past Surgical History Head Surgeries/Procedures: Reports: None HEENT Surgical History: Reports: Adenoidectomy, Tonsillectomy GI Surgical History: Reports: Appendectomy, Cholecystectomy, Colon, Colonoscopy, Colostomy, EGD, Hernia, Abdominal, Other (See Below) Other GI Surgeries/Procedures: PT HAS HAD SEVERAL HERNIA SURGERIES IN THE PAST. STATES MANY COLON SURGERIES INVOLVING COLOSTOMY X 2 R/T LEAKING POST SURGERY. STATES NOW HAS VAGINAL DRAINAGE FROM FISTULA. Female Surgical History: Reports: Hysterectomy, Oophorectomy, Salpingo- Oophorectomy, Other (See Below) Other Female Surgeries/Procedures: CLOSURE OF A VAGINAL FISTULA. Kidney stent placed on 01.19.19 Musculoskeletal Surgical History: Reports: ORIF Other Musculoskeletal Surgeries/Procedures:: L ankle surgery x 2 Social & Family History - Family History Family Medical History: Noncontributory GI: Reports: None - Tobacco Use Tobacco Use Status *Q: Never Tobacco User Second Hand Smoke Exposure: No - Caffeine Use Caffeine Use: Reports: Soda - Recreational Drug Use Recreational Drug Use: No H&P Review of Systems - Review of Systems: Review Of Systems: See Below General: Reports: Fever, Weakness. Denies: Chills, Night Sweats, Diaphoresis, Decreased Appetite HEENT: Reports: No Symptoms Pulmonary: Reports: Cough. Denies: Shortness of Breath Cardiovascular: Reports: No Symptoms Gastrointestinal: Reports: Abdominal Pain, Diarrhea, Vomiting. Denies: Black Stool, Constipation, Hematochezia, Melena Genitourinary: Reports: No Symptoms Musculoskeletal: Reports: No Symptoms Skin: Reports: No Symptoms Psychiatric: Reports: No Symptoms Neurological: Reports: No Symptoms Hematologic/Lymphatic: Reports: No Symptoms Immunologic: Reports: No Symptoms Exam - Exam Exam: See Below - Vital Signs Vital Signs: Last Vital Signs Temp 98.6 F 06/26/20 13:52 Pulse 82 06/26/20 13:52 Resp 18 06/26/20 13:52 BP 121/57 L 06/26/20 13:52 Pulse Ox 99 06/26/20 13:52 Weight: 176 lb 1.6 oz - Exam General: Alert, Oriented, Cooperative HEENT: PERRLA, Hearing Intact, Posterior Pharynx Clear, TMs Clear Neck: Supple, Trachea Midline Lungs: Clear to Auscultation, Normal Respiratory Effort, Crackles, Rales, Rhonchi Cardiovascular: Regular Rate, Regular Rhythm. No: Systolic Murmur GI/Abdominal Exam: Soft, Tender (Tenderness suprapubic left lower quadrant.). No: Guarding, Rigid, Rebound Extremities: No Pedal Edema Neuro Extensive - Mental Status: Alert, Oriented x3, Normal Mood/Affect, Normal Cognition, Memory Intact Neuro Extensive - Motor, Sensory, Reflexes: Normal Gait Psychiatric: Alert, Normal Affect, Normal Mood - Patient Data Lab Results Last 24 hrs: Laboratory Results - last 24 hr 06/26/20 06/26/20 06/26/20 Range/Units 09:50 10:55 10:55 WBC 18.3 H (4.5-12.0) X10-3/uL RBC 3.33 (3.23-5.20) x10(6)uL Hgb 8.5 L (11.5-15.5) g/dL Hct 26.0 L (30.0-51.3) % MCV 77.8 L (80-96) fL MCH 25.4 L (27.7-33.6) pg MCHC 32.6 (32.2-35.4) g/dL RDW 17.7 H (11.5-15.5) % Plt Count 301 (125-369) X10(3)uL MPV 7.9 (7.4-10.4) fL Add Manual Diff Yes Neutrophils % (Manual) 92 H (46-82) % Lymphocytes % (Manual) 4 L (13-37) % Monocytes % (Manual) 4 (4-12) % Poikilocytosis Few Anisocytosis Few Microcytosis Few Sodium 137 (135-145) mmol/L Potassium 3.2 L (3.5-5.3) mmol/L Chloride 103 (100-110) mmol/L Carbon Dioxide 20 L (21-32) mmol/L BUN 40 H (7-18) mg/dL Creatinine 2.6 H* (0.55-1.02) mg/dL Est Cr Clr Drug Dosing TNP Estimated GFR (MDRD) 18 L (>60) BUN/Creatinine Ratio 15.4 (9-20) Glucose 124 H (80-116) mg/dL Lactic Acid (0.4-2.0) mmol/L Calcium 7.5 L (8.6-10.2) mg/dL Magnesium (1.8-2.5) mg/dL Total Bilirubin 0.7 (0.1-1.3) mg/dL AST 29 H D (5-25) IU/L ALT 79 H D (12-36) U/L Alkaline Phosphatase 191 H (56-112) IU/L Troponin I (4.0-60.3) pg/mL C-Reactive Protein (0.5-0.9) mg/dL NT-Pro-B Natriuret Pep (<=450) pg/mL Total Protein 6.8 (6.0-8.0) g/dL Albumin 2.3 L (3.2-4.6) g/dL Globulin 4.5 g/dL Albumin/Globulin Ratio 0.5 TSH, Ultra Sensitive (0.36-3.74) IU/mL Urine Color (YELLOW) Urine Appearance (CLEAR) Urine pH (5.0-6.5) Ur Specific [place] (1.010-1.025) Urine Protein (NEGATIVE) mg/dL Urine Glucose (UA) (NORMAL) mg/dL Urine Ketones (NEGATIVE) mg/dL Urine Occult Blood (NEGATIVE) Urine Nitrite (NEGATIVE) Urine Bilirubin (NEGATIVE) Urine Urobilinogen (NEGATIVE) mg/dL Ur Leukocyte Esterase (NEGATIVE) Urine RBC (0-5) Urine WBC (0-5) Ur Squamous Epith Cells (NS,R,O) Urine Bacteria (NS) Urine Yeast (NS) SARS-CoV-2 RNA (AVA) Negative (NEGATIVE) 06/26/20 06/26/20 06/26/20 Range/Units 10:55 10:55 11:44 WBC (4.5-12.0) X10-3/uL RBC (3.23-5.20) x10(6)uL Hgb (11.5-15.5) g/dL Hct (30.0-51.3) % MCV (80-96) fL MCH (27.7-33.6) pg MCHC (32.2-35.4) g/dL RDW (11.5-15.5) % Plt Count (125-369) X10(3)uL MPV (7.4-10.4) fL Add Manual Diff Neutrophils % (Manual) (46-82) % Lymphocytes % (Manual) (13-37) % Monocytes % (Manual) (4-12) % Poikilocytosis Anisocytosis Microcytosis Sodium (135-145) mmol/L Potassium (3.5-5.3) mmol/L Chloride (100-110) mmol/L Carbon Dioxide (21-32) mmol/L BUN (7-18) mg/dL Creatinine (0.55-1.02) mg/dL Est Cr Clr Drug Dosing Estimated GFR (MDRD) (>60) BUN/Creatinine Ratio (9-20) Glucose (80-116) mg/dL Lactic Acid (0.4-2.0) mmol/L Calcium (8.6-10.2) mg/dL Magnesium (1.8-2.5) mg/dL Total Bilirubin (0.1-1.3) mg/dL AST (5-25) IU/L ALT (12-36) U/L Alkaline Phosphatase (56-112) IU/L Troponin I 6.0 (4.0-60.3) pg/mL C-Reactive Protein 22.4 H* (0.5-0.9) mg/dL NT-Pro-B Natriuret Pep (<=450) pg/mL Total Protein (6.0-8.0) g/dL Albumin (3.2-4.6) g/dL Globulin g/dL Albumin/Globulin Ratio TSH, Ultra Sensitive 0.20 L (0.36-3.74) IU/mL Urine Color Yellow (YELLOW) Urine Appearance Cloudy (CLEAR) Urine pH 5.0 (5.0-6.5) Ur Specific [place] 1.010 (1.010-1.025) Urine Protein Trace (NEGATIVE) mg/dL Urine Glucose (UA) Normal (NORMAL) mg/dL Urine Ketones Negative (NEGATIVE) mg/dL Urine Occult Blood Moderate H (NEGATIVE) Urine Nitrite Negative (NEGATIVE) Urine Bilirubin Negative (NEGATIVE) Urine Urobilinogen Normal (NEGATIVE) mg/dL Ur Leukocyte Esterase Large H (NEGATIVE) Urine RBC 20-30 H (0-5) Urine WBC >100 H (0-5) Ur Squamous Epith Cells Few H (NS,R,O) Urine Bacteria Many H (NS) Urine Yeast Moderate H (NS) SARS-CoV-2 RNA (AVA) (NEGATIVE) 06/26/20 06/26/20 06/26/20 Range/Units 12:35 13:08 13:08 WBC (4.5-12.0) X10-3/uL RBC (3.23-5.20) x10(6)uL Hgb (11.5-15.5) g/dL Hct (30.0-51.3) % MCV (80-96) fL MCH (27.7-33.6) pg MCHC (32.2-35.4) g/dL RDW (11.5-15.5) % Plt Count (125-369) X10(3)uL MPV (7.4-10.4) fL Add Manual Diff Neutrophils % (Manual) (46-82) % Lymphocytes % (Manual) (13-37) % Monocytes % (Manual) (4-12) % Poikilocytosis Anisocytosis Microcytosis Sodium (135-145) mmol/L Potassium (3.5-5.3) mmol/L Chloride (100-110) mmol/L Carbon Dioxide (21-32) mmol/L BUN (7-18) mg/dL Creatinine (0.55-1.02) mg/dL Est Cr Clr Drug Dosing Estimated GFR (MDRD) (>60) BUN/Creatinine Ratio (9-20) Glucose (80-116) mg/dL Lactic Acid 0.5 (0.4-2.0) mmol/L Calcium (8.6-10.2) mg/dL Magnesium 1.6 L (1.8-2.5) mg/dL Total Bilirubin (0.1-1.3) mg/dL AST (5-25) IU/L ALT (12-36) U/L Alkaline Phosphatase (56-112) IU/L Troponin I (4.0-60.3) pg/mL C-Reactive Protein (0.5-0.9) mg/dL NT-Pro-B Natriuret Pep 2390 H* (<=450) pg/mL Total Protein (6.0-8.0) g/dL Albumin (3.2-4.6) g/dL Globulin g/dL Albumin/Globulin Ratio TSH, Ultra Sensitive (0.36-3.74) IU/mL Urine Color (YELLOW) Urine Appearance (CLEAR) Urine pH (5.0-6.5) Ur Specific [place] (1.010-1.025) Urine Protein (NEGATIVE) mg/dL Urine Glucose (UA) (NORMAL) mg/dL Urine Ketones (NEGATIVE) mg/dL Urine Occult Blood (NEGATIVE) Urine Nitrite (NEGATIVE) Urine Bilirubin (NEGATIVE) Urine Urobilinogen (NEGATIVE) mg/dL Ur Leukocyte Esterase (NEGATIVE) Urine RBC (0-5) Urine WBC (0-5) Ur Squamous Epith Cells (NS,R,O) Urine Bacteria (NS) Urine Yeast (NS) SARS-CoV-2 RNA (AVA) (NEGATIVE) Result Diagrams: 06/26/20 10:55 06/26/20 10:55 Robert Results Last 24 hrs: Microbiology 06/26/20 11:44 C. difficile Antigen & Toxins A,B - Final Stool / Feces Sepsis Event Note - Evaluation Sepsis Screening Result: No Definite Risk - Focused Exam Vital Signs: Vital Signs Temp Pulse Resp BP Pulse Ox 06/26/20 13:52 98.6 F 82 18 121/57 L 99 06/26/20 13:10 99.3 F 81 16 101/42 L 100 06/26/20 13:09 99.3 F 81 16 101/42 L 100 06/26/20 10:00 100.1 F 96 19 118/53 L 100 - Problem List (1) Palliative care status SNOMED Code(s): 205927788 ICD Code: Z51.5 - ENCOUNTER FOR PALLIATIVE CARE Status: Acute Current Visit: Yes (2) Acute on chronic renal failure SNOMED Code(s): 738295170 ICD Code: N17.9 - ACUTE KIDNEY FAILURE, UNSPECIFIED; N18.9 - CHRONIC KIDNEY DISEASE, UNSPECIFIED Status: Acute Current Visit: Yes (3) Complicated UTI (urinary tract infection) SNOMED Code(s): 30434574 ICD Code: N39.0 - URINARY TRACT INFECTION, SITE NOT SPECIFIED Status: Acute Current Visit: Yes (4) Hypokalemia SNOMED Code(s): 93206771 ICD Code: E87.6 - HYPOKALEMIA Status: Acute Current Visit: Yes (5) Leukocytosis SNOMED Code(s): 739817083, 242292550 ICD Code: D72.829 - ELEVATED WHITE BLOOD CELL COUNT, UNSPECIFIED Status: Acute Current Visit: Yes (6) Retroperitoneal fibrosis SNOMED Code(s): 64564106 ICD Code: N13.5 - CROSSING VESSEL AND STRICTURE OF URETER W/O HYDRONEPHROSIS Status: Acute Current Visit: Yes (7) Stenosis of left ureter SNOMED Code(s): 41481697 ICD Code: N13.5 - CROSSING VESSEL AND STRICTURE OF URETER W/O HYDRONEPHROSIS Status: Acute Current Visit: Yes (8) Dehydration SNOMED Code(s): 81041336 ICD Code: E86.0 - DEHYDRATION Status: Acute Current Visit: No Problem List Initiated/Reviewed/Updated: Yes Orders Last 24hrs: Active Orders 24 hr Category Date Time Status Admission Status [Patient Status] [ADT] Routine ADT 06/26/20 13:26 Active Ambulate [RC] ASDIRECTED Care 06/26/20 15:26 Active Cardiac Monitoring [RC] CONTINUOUS Care 06/26/20 15:26 Active EKG Documentation Completion [RC] 0500 Care 06/26/20 15:29 Active EKG Documentation Completion [RC] ASDIRECTED Care 06/26/20 13:02 Active Height and Weight [RC] DAILY Care 06/26/20 15:26 Active Intake and Output [RC] QSHIFT Care 06/26/20 15:26 Active Oxygen Therapy [RC] PRN Care 06/26/20 15:26 Active VTE/DVT Education [RC] Per Unit Routine Care 06/26/20 15:26 Active Vital Signs [RC] Q4H Care 06/26/20 15:26 Active 2 Gram Sodium Diet [DIET] Diet 06/26/20 Dinner Active Echo Comp wo Cont [US] Routine Exams 06/26/20 15:29 Ordered BASIC METABOLIC PANEL,BMP [CHEM] Routine Lab 06/27/20 06:00 Ordered C DIFFICILE AG/TOXIN W/REFLEX [RM] Stat Lab 06/26/20 11:44 Results CBC WITH AUTO DIFF [HEME] Routine Lab 06/27/20 06:00 Ordered CLOSTRIDIUM DIFF PCR CONF [RM] Stat Lab 06/26/20 11:44 Results CRP [C-REACTIVE PROTEIN] [CHEM] Routine Lab 06/28/20 06:00 Ordered CULTURE BLOOD [BC] Urgent Lab 06/26/20 12:30 Received CULTURE BLOOD [BC] Urgent Lab 06/26/20 12:35 Received CULTURE URINE [RM] Stat Lab 06/26/20 11:44 Received TROPONIN I [CHEM] AM Lab 06/27/20 05:11 Ordered UA W/MICROSCOPIC [URIN] Routine Lab 06/28/20 06:00 Ordered Acetaminophen [TylenoL] Med 06/26/20 17:00 Active 650 mg PO QID Citalopram [Celexa] Med 06/27/20 09:00 Active 40 mg PO DAILY DAPTOmycin [Cubicin] 320 mg Med 06/26/20 13:30 Active Sodium Chloride 0.9% [Normal Saline] 50 ml IV Q48H Enoxaparin [Lovenox] Med 06/26/20 15:30 Active 30 mg SUBCUT Q24H Furosemide [Lasix] Med 06/27/20 09:00 Active 20 mg PO MOTUWEFRSA Gabapentin [Neurontin] Med 06/27/20 08:00 Active 600 mg PO BID@08,14 Gabapentin [Neurontin] Med 06/26/20 21:00 Active 900 mg PO BEDTIME Levofloxacin/Dextrose 5%-Water [Levaquin in D5W 250 MG/ Med 06/28/20 16:00 Active 50 ML] 250 mg Premix Bag 1 bag IV Q48H Levothyroxine Med 07/02/20 06:00 Active 112.5 mcg PO Landin@0600 Levothyroxine Med 06/27/20 06:00 Active 75 mcg PO MoTuWeThFrSa@0600 Losartan [Cozaar] Med 06/27/20 09:00 Active 25 mg PO DAILY Metoprolol Succinate [Toprol XL] Med 06/27/20 09:00 Active 50 mg PO DAILY Nitroglycerin [Nitrostat] Med 06/26/20 15:15 Active 0.4 mg SL Q5M PRN Pantoprazole [ProTONIX] Med 06/27/20 07:30 Active 40 mg PO ACBREAKFAST Potassium Chloride [Klor-Con M20] Med 06/26/20 16:00 Active 40 meq PO BID@1600,2000 Simvastatin [Zocor] Med 06/26/20 21:00 Hold 10 mg PO BEDTIME Sodium Chloride 0.9% [Normal Saline] 1,000 ml Med 06/26/20 15:30 Active IV ASDIRECTED Blood Culture x2 Reflex Set [OM.PC] Urgent Oth 06/26/20 12:15 Ordered Resuscitation Status Routine Resus Stat 06/26/20 15:26 Ordered EKG 12 Lead [EK] AM Ther 06/27/20 05:11 Ordered EKG 12 Lead [EK] Routine Ther 06/26/20 13:02 Ordered Medication Orders Acetaminophen (Tylenol) 650 mg PO QID WANDA Last Admin: 06/26/20 16:12 Dose: 650 mg Documented by: TOM Citalopram Hydrobromide (Celexa) 40 mg PO DAILY [facility] Enoxaparin Sodium (Lovenox) 30 mg SUBCUT Q24H [facility] Last Admin: 06/26/20 16:08 Dose: 30 mg Documented by: TOM Furosemide (Lasix) 20 mg PO MOTUWEFRSA [facility] Gabapentin (Neurontin) 900 mg PO BEDTIME [facility] Gabapentin (Neurontin) 600 mg PO BID@08,14 [facility] Daptomycin 320 mg/ Sodium (Chloride) 50 mls @ 100 mls/hr IV Q48H [facility] Last Admin: 06/26/20 13:52 Dose: 100 mls/hr Documented by: NAMRATA Levofloxacin/Dextrose 250 mg/ (Premix) 50 mls @ 50 mls/hr IV Q48H [facility] Sodium Chloride (Normal Saline) 1,000 mls @ 75 mls/hr IV ASDIRECTED [facility] Levothyroxine Sodium (Levothyroxine) 112.5 mcg PO Landin@0600 [facility] Levothyroxine Sodium (Levothyroxine) 75 mcg PO MoTuWeThFrSa@0600 [facility] Losartan Potassium (Cozaar) 25 mg PO DAILY [facility] Metoprolol Succinate (Toprol Xl) 50 mg PO DAILY [facility] Nitroglycerin (Nitrostat) 0.4 mg SL Q5M PRN PRN Reason: CHEST PAIN Pantoprazole Sodium (Protonix) 40 mg PO ACBREAKFAST [facility] Potassium Chloride (Klor-Con M20) 40 meq PO BID@1600,2000 [facility] Stop: 06/26/20 20:01 Last Admin: 06/26/20 16:11 Dose: 40 meq Documented by: TOM Simvastatin (Zocor) 10 mg PO BEDTIME [facility] Assessment/Plan Comment:: 1. Admit to inpatient 2. IV Antibiotics for Her UTI. 3. Potassium was given. 4. IV fluids. 5. Recheck laboratory tests. 6. Urine culture and blood cultures. 7. C. difficile 8. Full code. 9. Lovenox for clot prophylaxis per 10. Low sodium diet 13. Up ad deepika. - Mortality Measure Prognosis:: Good
[2020-06-26] MEDS: Sodium Chloride 0.9% 1,000 ML IV SCH (19:56)
[2020-06-26] MEDS: Gabapentin 300 MG Cap PO SCH (19:59)
[2020-06-26] MEDS ORDERED: Simvastatin 10 MG Tab PO SCH (21:00)
[2020-06-27] MEDS: Sodium Chloride 0.9% 1,000 ML IV SCH (04:05)
[2020-06-27] MEDS: Levothyroxine 75 MCG Tab PO SCH (05:08)
[2020-06-27] MEDS: Pantoprazole 40 MG Tab.CR PO SCH (05:09)
[2020-06-27] MEDS ORDERED: Pantoprazole 40 MG Tab.CR PO SCH (07:30)
[2020-06-27] MEDS: Gabapentin 600 MG Tab PO SCH ×2 (07:58→13:39)
[2020-06-27] MEDS: Citalopram 20 MG Tab PO SCH (08:04)
[2020-06-27] MEDS: Metoprolol Succinate 50 MG Tab.ER PO SCH (08:05)
[2020-06-27] MEDS: Losartan 25 MG Tab PO SCH (08:06)
[2020-06-27] MEDS: Furosemide 20 MG Tab PO SCH (08:07)
[2020-06-27] MEDS: Acetaminophen 325 MG Tab PO SCH ×4 (08:07→20:46)
[2020-06-27] MEDS ORDERED: Fluconazole 100 MG Tab PO SCH (09:00)
[2020-06-27] MEDS ORDERED: Potassium Chloride 10 MEQ Tab.ER PO SCH (09:00)
--- NOTE | 2020-06-27 09:13 | PCM.PN ---
- General Info Date of Service: 06/27/20 Admission Dx/Problem (Free Text): Patient states she feels better today has little bit more strength. She denies fevers, chills, diarrhea, nausea or vomiting. She denies any abdominal cramping also. - Patient Data Vitals - Most Recent: Last Vital Signs Temp 98.9 F 06/27/20 05:09 Pulse 70 06/27/20 08:05 Resp 16 06/27/20 05:09 BP 112/48 L 06/27/20 08:06 Pulse Ox 99 06/27/20 05:09 Weight - Most Recent: 177 lb 5 oz I&O - Last 24 Hours: Intake & Output 06/26/20 06/27/20 06/27/20 22:59 06:59 14:59 Intake Total 1700 Output Total 500 Balance 1200 Lab Results Last 24 Hours: Laboratory Results - last 24 hr 06/26/20 06/26/20 06/26/20 Range/Units 09:50 10:55 10:55 WBC 18.3 H (4.5-12.0) X10-3/uL RBC 3.33 (3.23-5.20) x10(6)uL Hgb 8.5 L (11.5-15.5) g/dL Hct 26.0 L (30.0-51.3) % MCV 77.8 L (80-96) fL MCH 25.4 L (27.7-33.6) pg MCHC 32.6 (32.2-35.4) g/dL RDW 17.7 H (11.5-15.5) % Plt Count 301 (125-369) X10(3)uL MPV 7.9 (7.4-10.4) fL Add Manual Diff Yes Neutrophils % (Manual) 92 H (46-82) % Lymphocytes % (Manual) 4 L (13-37) % Monocytes % (Manual) 4 (4-12) % Poikilocytosis Few Anisocytosis Few Microcytosis Few Sodium 137 (135-145) mmol/L Potassium 3.2 L (3.5-5.3) mmol/L Chloride 103 (100-110) mmol/L Carbon Dioxide 20 L (21-32) mmol/L BUN 40 H (7-18) mg/dL Creatinine 2.6 H* (0.55-1.02) mg/dL Est Cr Clr Drug Dosing TNP Estimated GFR (MDRD) 18 L (>60) BUN/Creatinine Ratio 15.4 (9-20) Glucose 124 H (80-116) mg/dL Lactic Acid (0.4-2.0) mmol/L Calcium 7.5 L (8.6-10.2) mg/dL Magnesium (1.8-2.5) mg/dL Total Bilirubin 0.7 (0.1-1.3) mg/dL AST 29 H D (5-25) IU/L ALT 79 H D (12-36) U/L Alkaline Phosphatase 191 H (56-112) IU/L Troponin I (4.0-60.3) pg/mL C-Reactive Protein (0.5-0.9) mg/dL NT-Pro-B Natriuret Pep (<=450) pg/mL Total Protein 6.8 (6.0-8.0) g/dL Albumin 2.3 L (3.2-4.6) g/dL Globulin 4.5 g/dL Albumin/Globulin Ratio 0.5 TSH, Ultra Sensitive (0.36-3.74) IU/mL Urine Color (YELLOW) Urine Appearance (CLEAR) Urine pH (5.0-6.5) Ur Specific [place] (1.010-1.025) Urine Protein (NEGATIVE) mg/dL Urine Glucose (UA) (NORMAL) mg/dL Urine Ketones (NEGATIVE) mg/dL Urine Occult Blood (NEGATIVE) Urine Nitrite (NEGATIVE) Urine Bilirubin (NEGATIVE) Urine Urobilinogen (NEGATIVE) mg/dL Ur Leukocyte Esterase (NEGATIVE) Urine RBC (0-5) Urine WBC (0-5) Ur Squamous Epith Cells (NS,R,O) Urine Bacteria (NS) Urine Yeast (NS) SARS-CoV-2 RNA (AVA) Negative (NEGATIVE) 06/26/20 06/26/20 06/26/20 Range/Units 10:55 10:55 11:44 WBC (4.5-12.0) X10-3/uL RBC (3.23-5.20) x10(6)uL Hgb (11.5-15.5) g/dL Hct (30.0-51.3) % MCV (80-96) fL MCH (27.7-33.6) pg MCHC (32.2-35.4) g/dL RDW (11.5-15.5) % Plt Count (125-369) X10(3)uL MPV (7.4-10.4) fL Add Manual Diff Neutrophils % (Manual) (46-82) % Lymphocytes % (Manual) (13-37) % Monocytes % (Manual) (4-12) % Poikilocytosis Anisocytosis Microcytosis Sodium (135-145) mmol/L Potassium (3.5-5.3) mmol/L Chloride (100-110) mmol/L Carbon Dioxide (21-32) mmol/L BUN (7-18) mg/dL Creatinine (0.55-1.02) mg/dL Est Cr Clr Drug Dosing Estimated GFR (MDRD) (>60) BUN/Creatinine Ratio (9-20) Glucose (80-116) mg/dL Lactic Acid (0.4-2.0) mmol/L Calcium (8.6-10.2) mg/dL Magnesium (1.8-2.5) mg/dL Total Bilirubin (0.1-1.3) mg/dL AST (5-25) IU/L ALT (12-36) U/L Alkaline Phosphatase (56-112) IU/L Troponin I 6.0 (4.0-60.3) pg/mL C-Reactive Protein 22.4 H* (0.5-0.9) mg/dL NT-Pro-B Natriuret Pep (<=450) pg/mL Total Protein (6.0-8.0) g/dL Albumin (3.2-4.6) g/dL Globulin g/dL Albumin/Globulin Ratio TSH, Ultra Sensitive 0.20 L (0.36-3.74) IU/mL Urine Color Yellow (YELLOW) Urine Appearance Cloudy (CLEAR) Urine pH 5.0 (5.0-6.5) Ur Specific [place] 1.010 (1.010-1.025) Urine Protein Trace (NEGATIVE) mg/dL Urine Glucose (UA) Normal (NORMAL) mg/dL Urine Ketones Negative (NEGATIVE) mg/dL Urine Occult Blood Moderate H (NEGATIVE) Urine Nitrite Negative (NEGATIVE) Urine Bilirubin Negative (NEGATIVE) Urine Urobilinogen Normal (NEGATIVE) mg/dL Ur Leukocyte Esterase Large H (NEGATIVE) Urine RBC 20-30 H (0-5) Urine WBC >100 H (0-5) Ur Squamous Epith Cells Few H (NS,R,O) Urine Bacteria Many H (NS) Urine Yeast Moderate H (NS) SARS-CoV-2 RNA (AVA) (NEGATIVE) 06/26/20 06/26/20 06/26/20 Range/Units 12:35 13:08 13:08 WBC (4.5-12.0) X10-3/uL RBC (3.23-5.20) x10(6)uL Hgb (11.5-15.5) g/dL Hct (30.0-51.3) % MCV (80-96) fL MCH (27.7-33.6) pg MCHC (32.2-35.4) g/dL RDW (11.5-15.5) % Plt Count (125-369) X10(3)uL MPV (7.4-10.4) fL Add Manual Diff Neutrophils % (Manual) (46-82) % Lymphocytes % (Manual) (13-37) % Monocytes % (Manual) (4-12) % Poikilocytosis Anisocytosis Microcytosis Sodium (135-145) mmol/L Potassium (3.5-5.3) mmol/L Chloride (100-110) mmol/L Carbon Dioxide (21-32) mmol/L BUN (7-18) mg/dL Creatinine (0.55-1.02) mg/dL Est Cr Clr Drug Dosing Estimated GFR (MDRD) (>60) BUN/Creatinine Ratio (9-20) Glucose (80-116) mg/dL Lactic Acid 0.5 (0.4-2.0) mmol/L Calcium (8.6-10.2) mg/dL Magnesium 1.6 L (1.8-2.5) mg/dL Total Bilirubin (0.1-1.3) mg/dL AST (5-25) IU/L ALT (12-36) U/L Alkaline Phosphatase (56-112) IU/L Troponin I (4.0-60.3) pg/mL C-Reactive Protein (0.5-0.9) mg/dL NT-Pro-B Natriuret Pep 2390 H* (<=450) pg/mL Total Protein (6.0-8.0) g/dL Albumin (3.2-4.6) g/dL Globulin g/dL Albumin/Globulin Ratio TSH, Ultra Sensitive (0.36-3.74) IU/mL Urine Color (YELLOW) Urine Appearance (CLEAR) Urine pH (5.0-6.5) Ur Specific [place] (1.010-1.025) Urine Protein (NEGATIVE) mg/dL Urine Glucose (UA) (NORMAL) mg/dL Urine Ketones (NEGATIVE) mg/dL Urine Occult Blood (NEGATIVE) Urine Nitrite (NEGATIVE) Urine Bilirubin (NEGATIVE) Urine Urobilinogen (NEGATIVE) mg/dL Ur Leukocyte Esterase (NEGATIVE) Urine RBC (0-5) Urine WBC (0-5) Ur Squamous Epith Cells (NS,R,O) Urine Bacteria (NS) Urine Yeast (NS) SARS-CoV-2 RNA (AVA) (NEGATIVE) 06/27/20 06/27/20 06/27/20 Range/Units 06:25 06:25 06:25 WBC 14.3 H (4.5-12.0) X10-3/uL RBC 3.22 L (3.23-5.20) x10(6)uL Hgb 8.2 L (11.5-15.5) g/dL Hct 25.0 L (30.0-51.3) % MCV 77.8 L (80-96) fL MCH 25.5 L (27.7-33.6) pg MCHC 32.7 (32.2-35.4) g/dL RDW 18.0 H (11.5-15.5) % Plt Count 289 (125-369) X10(3)uL MPV 8.0 (7.4-10.4) fL Add Manual Diff Yes Neutrophils % (Manual) 92 H (46-82) % Lymphocytes % (Manual) 6 L (13-37) % Monocytes % (Manual) 2 L (4-12) % Poikilocytosis Few Anisocytosis Few Microcytosis Few Sodium 141 (135-145) mmol/L Potassium 5.2 D (3.5-5.3) mmol/L Chloride 112 H D (100-110) mmol/L Carbon Dioxide 19 L (21-32) mmol/L BUN 37 H (7-18) mg/dL Creatinine 2.1 H* (0.55-1.02) mg/dL Est Cr Clr Drug Dosing 17.74 Estimated GFR (MDRD) 23 L (>60) BUN/Creatinine Ratio 17.6 (9-20) Glucose 166 H (80-116) mg/dL Lactic Acid (0.4-2.0) mmol/L Calcium 7.9 L (8.6-10.2) mg/dL Magnesium (1.8-2.5) mg/dL Total Bilirubin (0.1-1.3) mg/dL AST (5-25) IU/L ALT (12-36) U/L Alkaline Phosphatase (56-112) IU/L Troponin I 4.1 (4.0-60.3) pg/mL C-Reactive Protein (0.5-0.9) mg/dL NT-Pro-B Natriuret Pep (<=450) pg/mL Total Protein (6.0-8.0) g/dL Albumin (3.2-4.6) g/dL Globulin g/dL Albumin/Globulin Ratio TSH, Ultra Sensitive (0.36-3.74) IU/mL Urine Color (YELLOW) Urine Appearance (CLEAR) Urine pH (5.0-6.5) Ur Specific [place] (1.010-1.025) Urine Protein (NEGATIVE) mg/dL Urine Glucose (UA) (NORMAL) mg/dL Urine Ketones (NEGATIVE) mg/dL Urine Occult Blood (NEGATIVE) Urine Nitrite (NEGATIVE) Urine Bilirubin (NEGATIVE) Urine Urobilinogen (NEGATIVE) mg/dL Ur Leukocyte Esterase (NEGATIVE) Urine RBC (0-5) Urine WBC (0-5) Ur Squamous Epith Cells (NS,R,O) Urine Bacteria (NS) Urine Yeast (NS) SARS-CoV-2 RNA (AVA) (NEGATIVE) Robert Results Last 24 Hours: Microbiology 06/26/20 11:44 C. difficile Antigen & Toxins A,B - Final Stool / Feces Med Orders - Current: Current Medications Acetaminophen (Tylenol) 650 mg PO QID [facility] Last Admin: 06/27/20 08:07 Dose: 650 mg Documented by: Citalopram Hydrobromide (Celexa) 40 mg PO DAILY [facility] Last Admin: 06/27/20 08:04 Dose: 40 mg Documented by: Enoxaparin Sodium (Lovenox) 30 mg SUBCUT Q24H [facility] Last Admin: 06/26/20 16:08 Dose: 30 mg Documented by: Furosemide (Lasix) 20 mg PO MOTUWEFRSA [facility] Last Admin: 06/27/20 08:07 Dose: 20 mg Documented by: Gabapentin (Neurontin) 900 mg PO BEDTIME [facility] Last Admin: 06/26/20 19:59 Dose: 900 mg Documented by: Gabapentin (Neurontin) 600 mg PO BID@08,14 [facility] Last Admin: 06/27/20 07:58 Dose: 600 mg Documented by: Daptomycin 320 mg/ Sodium (Chloride) 50 mls @ 100 mls/hr IV Q48H [facility] Last Admin: 06/26/20 13:52 Dose: 100 mls/hr Documented by: Levofloxacin/Dextrose 250 mg/ (Premix) 50 mls @ 50 mls/hr IV Q48H [facility] Levothyroxine Sodium (Levothyroxine) 112.5 mcg PO Landin@0600 [facility] Levothyroxine Sodium (Levothyroxine) 75 mcg PO MoTuWeThFrSa@0600 [facility] Last Admin: 06/27/20 05:08 Dose: 75 mcg Documented by: Losartan Potassium (Cozaar) 25 mg PO DAILY [facility] Last Admin: 06/27/20 08:06 Dose: 25 mg Documented by: Metoprolol Succinate (Toprol Xl) 50 mg PO DAILY [facility] Last Admin: 06/27/20 08:05 Dose: 50 mg Documented by: Nitroglycerin (Nitrostat) 0.4 mg SL Q5M PRN PRN Reason: CHEST PAIN Pantoprazole Sodium (Protonix) 40 mg PO DAILY@0600 [facility] Last Admin: 06/27/20 05:09 Dose: 40 mg Documented by: Simvastatin (Zocor) 10 mg PO BEDTIME [facility] Discontinued Medications Diphenhydramine HCl (Benadryl) 25 mg IVPUSH ONETIME ONE Stop: 06/26/20 15:55 Last Admin: 06/26/20 16:05 Dose: 25 mg Documented by: Sodium Chloride (Normal Saline) 1,000 mls @ 999 mls/hr IV .BOLUS ONE Stop: 06/26/20 11:43 Last Admin: 06/26/20 11:00 Dose: 999 mls/hr Documented by: Sodium Chloride (Normal Saline) 1,000 mls @ 999 mls/hr IV .BOLUS ONE Stop: 06/26/20 13:13 Last Admin: 06/26/20 13:09 Dose: 999 mls/hr Documented by: Levofloxacin/Dextrose 500 mg/ (Premix) 100 mls @ 100 mls/hr IV ONETIME ONE Stop: 06/26/20 14:24 Last Admin: 06/26/20 15:38 Dose: 100 mls/hr Documented by: Sodium Chloride (Normal Saline) 1,000 mls @ 125 mls/hr IV ASDIRECTED [facility] Last Admin: 06/27/20 04:05 Dose: 125 mls/hr Documented by: Magnesium Sulfate (Magnesium Sulfate In Water Premix) 2 gm in 50 mls @ 25 mls/hr IV ONETIME ONE Stop: 06/26/20 17:59 Last Admin: 06/26/20 17:26 Dose: 25 mls/hr Documented by: Methylprednisolone Sodium Succinate (Solu-Medrol) 125 mg IVPUSH ONETIME ONE Stop: 06/26/20 16:01 Last Admin: 06/26/20 16:03 Dose: 125 mg Documented by: Pantoprazole Sodium (Protonix) 40 mg PO ACBREAKFAST [facility] Potassium Chloride (Klor-Con M20) 40 meq PO ONETIME ONE Stop: 06/26/20 12:15 Last Admin: 06/26/20 13:07 Dose: 40 meq Documented by: Potassium Chloride (Klor-Con 10) 10 meq PO DAILY [facility] Potassium Chloride (Klor-Con M20) 40 meq PO BID@1600,2000 [facility] Stop: 06/26/20 20:01 Last Admin: 06/26/20 19:59 Dose: 40 meq Documented by: - Exam General: Alert, Oriented, Cooperative Lungs: Clear to Auscultation, Normal Respiratory Effort Cardiovascular: Regular Rate, Regular Rhythm, No Murmurs GI/Abdominal Exam: Normal Bowel Sounds, No Organomegaly, No Distention Back Exam: No: CVA Tenderness (R), CVA Tenderness (L) Extremities: No Pedal Edema Sepsis Event Note - Evaluation Sepsis Screening Result: No Definite Risk - Focused Exam Vital Signs: Vital Signs Temp Pulse Pulse Resp BP BP Pulse Ox 06/27/20 08:06 112/48 L 06/27/20 08:05 70 112/48 L 06/27/20 05:09 98.9 F 48 L 16 124/65 99 11/03/20 02:12 97.6 F 64 16 96/48 L 96 06/26/20 22:54 97.6 F 77 16 121/56 L 93 L - Problem List & Annotations (1) Palliative care status SNOMED Code(s): 579061512 Code(s): Z51.5 - ENCOUNTER FOR PALLIATIVE CARE Status: Acute Current Visit: Yes (2) Acute on chronic renal failure SNOMED Code(s): 124004843 Code(s): N17.9 - ACUTE KIDNEY FAILURE, UNSPECIFIED; N18.9 - CHRONIC KIDNEY DISEASE, UNSPECIFIED Status: Acute Current Visit: Yes (3) Complicated UTI (urinary tract infection) SNOMED Code(s): 51247208 Code(s): N39.0 - URINARY TRACT INFECTION, SITE NOT SPECIFIED Status: Acute Current Visit: Yes (4) Hypokalemia SNOMED Code(s): 23884763 Code(s): E87.6 - HYPOKALEMIA Status: Acute Current Visit: Yes (5) Leukocytosis SNOMED Code(s): 800068303, 134169646 Code(s): D72.829 - ELEVATED WHITE BLOOD CELL COUNT, UNSPECIFIED Status: Acute Current Visit: Yes (6) Retroperitoneal fibrosis SNOMED Code(s): 46754421 Code(s): N13.5 - CROSSING VESSEL AND STRICTURE OF URETER W/O HYDRONEPHROSIS Status: Acute Current Visit: Yes (7) Stenosis of left ureter SNOMED Code(s): 91307528 Code(s): N13.5 - CROSSING VESSEL AND STRICTURE OF URETER W/O HYDRONEPHROSIS Status: Acute Current Visit: Yes (8) Dehydration SNOMED Code(s): 48151165 Code(s): E86.0 - DEHYDRATION Status: Acute Current Visit: No - Problem List Review Problem List Initiated/Reviewed/Updated: Yes - My Orders Last 24 Hours: My Active Orders 06/27/20 09:09 Convert IV to Saline Lock [OM.PC] Routine - Plan Plan:: 1. DC echocardiogram 2. DC IV fluids and saline lock. 3. DC telemetry. 4. Up ambulating with assist 5. C. difficile pending waiting for results 6. They shouldn't encouraged to drink lots of fluids a day 7. Continue antibiotics and wait for cultures. 8. Hold all potassium. 9. Recheck CBC and BMP in the a.m.
[2020-06-27] MEDS: Enoxaparin 30 MG/0.3 ML Syringe SUBCUT SCH (17:18)
[2020-06-27] MEDS: Gabapentin 300 MG Cap PO SCH (20:46)
[2020-06-28] MEDS: Levothyroxine 75 MCG Tab PO SCH (06:27)
[2020-06-28] MEDS: Pantoprazole 40 MG Tab.CR PO SCH (06:27)
[2020-06-28] MEDS: Citalopram 20 MG Tab PO SCH (08:35)
[2020-06-28] MEDS: Furosemide 20 MG Tab PO SCH (08:36)
[2020-06-28] MEDS: Losartan 25 MG Tab PO SCH (08:36)
[2020-06-28] MEDS: Metoprolol Succinate 50 MG Tab.ER PO SCH (08:36)
--- NOTE | 2020-06-28 08:36 | PCM.PN ---
- General Info Date of Service: 06/28/20 Admission Dx/Problem (Free Text): Patient feels good. She did have a watery explosive stool this morning. No blood. No cough, fevers, chills, abdominal pain. - Patient Data Vitals - Most Recent: Last Vital Signs Temp 97.8 F 06/27/20 20:00 Pulse 60 06/27/20 20:00 Resp 16 06/28/20 00:00 BP 109/54 L 06/27/20 20:00 Pulse Ox 98 06/27/20 20:00 Weight - Most Recent: 177 lb 5 oz I&O - Last 24 Hours: Intake & Output 06/27/20 06/28/20 06/28/20 22:59 06:59 14:59 Intake Total 500 200 Balance 500 200 Lab Results Last 24 Hours: Laboratory Results - last 24 hr 06/28/20 06/28/20 06/28/20 Range/Units 06:30 06:30 06:30 WBC 13.4 H (4.5-12.0) X10-3/uL RBC 3.21 L (3.23-5.20) x10(6)uL Hgb 8.2 L (11.5-15.5) g/dL Hct 25.0 L (30.0-51.3) % MCV 78.0 L (80-96) fL MCH 25.6 L (27.7-33.6) pg MCHC 32.8 (32.2-35.4) g/dL RDW 18.5 H (11.5-15.5) % Plt Count 392 H (125-369) X10(3)uL MPV 7.7 (7.4-10.4) fL Add Manual Diff Yes Neutrophils % (Manual) 84 H (46-82) % Lymphocytes % (Manual) 10 L (13-37) % Monocytes % (Manual) 6 (4-12) % Sodium 141 (135-145) mmol/L Potassium 4.2 D (3.5-5.3) mmol/L Chloride 111 H (100-110) mmol/L Carbon Dioxide 19 L (21-32) mmol/L BUN 42 H (7-18) mg/dL Creatinine 2.1 H* (0.55-1.02) mg/dL Est Cr Clr Drug Dosing 17.74 mL/min Estimated GFR (MDRD) 23 L (>60) BUN/Creatinine Ratio 20.0 (9-20) Glucose 106 (80-116) mg/dL Calcium 8.0 L (8.6-10.2) mg/dL C-Reactive Protein 9.5 H* (0.5-0.9) mg/dL Robert Results Last 24 Hours: Microbiology 06/26/20 11:44 Urine Culture - Final Urine, Clean Catch Escherichia Coli 06/26/20 12:35 Aerobic Blood Culture - Preliminary Blood - Venous - Lab Draw NO GROWTH AFTER 1 DAY Anaerobic Blood Culture - Preliminary NO GROWTH AFTER 1 DAY 06/26/20 12:30 Aerobic Blood Culture - Preliminary Blood - Venous NO GROWTH AFTER 1 DAY Anaerobic Blood Culture - Preliminary NO GROWTH AFTER 1 DAY Med Orders - Current: Current Medications Acetaminophen (Tylenol) 650 mg PO QID [facility] Last Admin: 06/27/20 20:46 Dose: 650 mg Documented by: Citalopram Hydrobromide (Celexa) 40 mg PO DAILY [facility] Last Admin: 06/27/20 08:04 Dose: 40 mg Documented by: Enoxaparin Sodium (Lovenox) 30 mg SUBCUT Q24H [facility] Last Admin: 06/27/20 17:18 Dose: 30 mg Documented by: Furosemide (Lasix) 20 mg PO MOTUWEFRSA [facility] Last Admin: 06/27/20 08:07 Dose: 20 mg Documented by: Gabapentin (Neurontin) 900 mg PO BEDTIME [facility] Last Admin: 06/27/20 20:46 Dose: 900 mg Documented by: Gabapentin (Neurontin) 600 mg PO BID@08,14 [facility] Last Admin: 06/27/20 13:39 Dose: 600 mg Documented by: Daptomycin 320 mg/ Sodium (Chloride) 50 mls @ 100 mls/hr IV Q48H [facility] Last Admin: 06/26/20 13:52 Dose: 100 mls/hr Documented by: Levofloxacin/Dextrose 250 mg/ (Premix) 50 mls @ 50 mls/hr IV Q48H [facility] Levothyroxine Sodium (Levothyroxine) 112.5 mcg PO Landin@0600 [facility] Levothyroxine Sodium (Levothyroxine) 75 mcg PO MoTuWeThFrSa@0600 [facility] Last Admin: 06/28/20 06:27 Dose: 75 mcg Documented by: Losartan Potassium (Cozaar) 25 mg PO DAILY [facility] Last Admin: 06/27/20 08:06 Dose: 25 mg Documented by: Metoprolol Succinate (Toprol Xl) 50 mg PO DAILY [facility] Last Admin: 06/27/20 08:05 Dose: 50 mg Documented by: Nitroglycerin (Nitrostat) 0.4 mg SL Q5M PRN PRN Reason: CHEST PAIN Pantoprazole Sodium (Protonix) 40 mg PO DAILY@0600 [facility] Last Admin: 06/28/20 06:27 Dose: 40 mg Documented by: Simvastatin (Zocor) 10 mg PO BEDTIME [facility] Discontinued Medications Diphenhydramine HCl (Benadryl) 25 mg IVPUSH ONETIME ONE Stop: 06/26/20 15:55 Last Admin: 06/26/20 16:05 Dose: 25 mg Documented by: Sodium Chloride (Normal Saline) 1,000 mls @ 999 mls/hr IV .BOLUS ONE Stop: 06/26/20 11:43 Last Admin: 06/26/20 11:00 Dose: 999 mls/hr Documented by: Sodium Chloride (Normal Saline) 1,000 mls @ 999 mls/hr IV .BOLUS ONE Stop: 06/26/20 13:13 Last Admin: 06/26/20 13:09 Dose: 999 mls/hr Documented by: Levofloxacin/Dextrose 500 mg/ (Premix) 100 mls @ 100 mls/hr IV ONETIME ONE Stop: 06/26/20 14:24 Last Admin: 06/26/20 15:38 Dose: 100 mls/hr Documented by: Sodium Chloride (Normal Saline) 1,000 mls @ 125 mls/hr IV ASDIRECTED [facility] Last Admin: 06/27/20 04:05 Dose: 125 mls/hr Documented by: Magnesium Sulfate (Magnesium Sulfate In Water Premix) 2 gm in 50 mls @ 25 mls/hr IV ONETIME ONE Stop: 06/26/20 17:59 Last Admin: 06/26/20 17:26 Dose: 25 mls/hr Documented by: Methylprednisolone Sodium Succinate (Solu-Medrol) 125 mg IVPUSH ONETIME ONE Stop: 06/26/20 16:01 Last Admin: 06/26/20 16:03 Dose: 125 mg Documented by: Pantoprazole Sodium (Protonix) 40 mg PO ACBREAKFAST [facility] Potassium Chloride (Klor-Con M20) 40 meq PO ONETIME ONE Stop: 06/26/20 12:15 Last Admin: 06/26/20 13:07 Dose: 40 meq Documented by: Potassium Chloride (Klor-Con 10) 10 meq PO DAILY [facility] Potassium Chloride (Klor-Con M20) 40 meq PO BID@1600,2000 [facility] Stop: 06/26/20 20:01 Last Admin: 06/26/20 19:59 Dose: 40 meq Documented by: - Exam General: Alert, Oriented Lungs: Clear to Auscultation, Normal Respiratory Effort Cardiovascular: Regular Rate, Regular Rhythm, No Murmurs GI/Abdominal Exam: Normal Bowel Sounds, Non-Tender, No Distention Sepsis Event Note - Evaluation Sepsis Screening Result: No Definite Risk - Focused Exam Vital Signs: Vital Signs Resp 06/28/20 00:00 16 - Problem List & Annotations (1) Palliative care status SNOMED Code(s): 746887419 Code(s): Z51.5 - ENCOUNTER FOR PALLIATIVE CARE Status: Acute Current Visit: Yes (2) Acute on chronic renal failure SNOMED Code(s): 471070707 Code(s): N17.9 - ACUTE KIDNEY FAILURE, UNSPECIFIED; N18.9 - CHRONIC KIDNEY DISEASE, UNSPECIFIED Status: Acute Current Visit: Yes (3) Complicated UTI (urinary tract infection) SNOMED Code(s): 04756268 Code(s): N39.0 - URINARY TRACT INFECTION, SITE NOT SPECIFIED Status: Acute Current Visit: Yes (4) Hypokalemia SNOMED Code(s): 51102818 Code(s): E87.6 - HYPOKALEMIA Status: Acute Current Visit: Yes (5) Leukocytosis SNOMED Code(s): 654536490, 779921267 Code(s): D72.829 - ELEVATED WHITE BLOOD CELL COUNT, UNSPECIFIED Status: Acute Current Visit: Yes (6) Retroperitoneal fibrosis SNOMED Code(s): 59842038 Code(s): N13.5 - CROSSING VESSEL AND STRICTURE OF URETER W/O HYDRONEPHROSIS Status: Acute Current Visit: Yes (7) Stenosis of left ureter SNOMED Code(s): 19433301 Code(s): N13.5 - CROSSING VESSEL AND STRICTURE OF URETER W/O HYDRONEPHROSIS Status: Acute Current Visit: Yes (8) Dehydration SNOMED Code(s): 01607436 Code(s): E86.0 - DEHYDRATION Status: Acute Current Visit: No (9) Diarrhea SNOMED Code(s): 59005454 Code(s): R19.7 - DIARRHEA, UNSPECIFIED Status: Acute Current Visit: Yes - Problem List Review Problem List Initiated/Reviewed/Updated: Yes - My Orders Last 24 Hours: My Active Orders 06/27/20 09:09 Convert IV to Saline Lock [OM.PC] Routine 06/27/20 10:05 Life Agent Discontinue [Cardiac Monitoring Discontinue] [RC] Click to Edit 06/27/20 Dinner Regular Diet [DIET] - Plan Plan:: Awaiting for the confirmation for C. difficile. Supposed to be done this morning and was told. Anticipate discharge later today on antibiotic will be renal dosed by pharmacy. If she C. difficile positive sent home on oral vancomycin.
[2020-06-28] MEDS: Acetaminophen 325 MG Tab PO SCH (08:37)
[2020-06-28 08:38] VITALS: BP 99/44; PULSE 72
[2020-06-28] MEDS: Gabapentin 600 MG Tab PO SCH (08:38)
--- NOTE | 2020-06-28 08:51 | PCM.SN.2 ---
- Free Text/Narrative Note: C. difficile came back positive. Discharged on Cipro 2 and 50 mg by mouth twice a day and vancomycin 125 mg 4 times a day for 10 days. I'm quite sure the C. difficile is causing most of her issues.
--- NOTE | 2020-06-28 09:00 | PCM.DCSUM1 ---
Discharge Summary - Hospital Course Free Text/Narrative:: [place] course-patient was placed on daptomycin and Levaquin because of previous culture on a UA that she had not long ago. Patient had diarrhea and C. difficile was checked and precautions were done. She was hydrated and her kidneys slightly improved to a creatinine of 2.1. Her abdominal cramps, better and her diarrhea disappeared until the last day she had one diarrhea episode. No blood in her stools, fevers, chills, cough. She never had any UTI symptoms. Her urine cultured out Escherichia coli sensitive to Cipro. And C. difficile was positive. Discharged home on vancomycin and Cipro renal dose. Discussed home health care with the patient and she defers. 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 She has minimally functioning kidneys. She's had about a week history of diarrhea off and on although she says she has that. She's had abdominal cramping. She's had a all resection for diverticulitis in the past per she was found to the ER to have a UTI. 6 weeks ago she had a UTI with enterococcus that was sensitive to daptomycin and Escherichia coli that was sensitive to Cipro. She was treated and sent home. She denies fevers, chills although she states they checked her temperature today and was elevated. She denies dysuria, pyuria, hematuria, blood in the stool. She had a little bit of cold little congestion and cough she thought maybe she had COVID-19 very Covid test was negative Diagnosis: Stroke: No - Discharge Data Discharge Date: 06/28/20 Discharge Disposition: Home, Self-Care 01 Condition: Fair - Referral to Home Health Primary Care Physician: Scot Domingo MD - Discharge Diagnosis/Problem(s) (1) Palliative care status SNOMED Code(s): 282313121 ICD Code: Z51.5 - ENCOUNTER FOR PALLIATIVE CARE Status: Acute Current Visit: Yes (2) Acute on chronic renal failure SNOMED Code(s): 130260320 ICD Code: N17.9 - ACUTE KIDNEY FAILURE, UNSPECIFIED; N18.9 - CHRONIC KIDNEY DISEASE, UNSPECIFIED Status: Acute Current Visit: Yes (3) Complicated UTI (urinary tract infection) SNOMED Code(s): 00404160 ICD Code: N39.0 - URINARY TRACT INFECTION, SITE NOT SPECIFIED Status: Acute Current Visit: Yes (4) Hypokalemia SNOMED Code(s): 16969482 ICD Code: E87.6 - HYPOKALEMIA Status: Acute Current Visit: Yes (5) Leukocytosis SNOMED Code(s): 555921269, 845772976 ICD Code: D72.829 - ELEVATED WHITE BLOOD CELL COUNT, UNSPECIFIED Status: Acute Current Visit: Yes (6) Retroperitoneal fibrosis SNOMED Code(s): 68276887 ICD Code: N13.5 - CROSSING VESSEL AND STRICTURE OF URETER W/O HYDRONEPHROSIS Status: Acute Current Visit: Yes (7) Stenosis of left ureter SNOMED Code(s): 73499797 ICD Code: N13.5 - CROSSING VESSEL AND STRICTURE OF URETER W/O HYDRONEPHROSIS Status: Acute Current Visit: Yes (8) Dehydration SNOMED Code(s): 03780936 ICD Code: E86.0 - DEHYDRATION Status: Acute Current Visit: No (9) C. difficile diarrhea SNOMED Code(s): 6407276582414 ICD Code: A04.72 - ENTEROCOLITIS D/T CLOSTRIDIUM DIFFICILE, NOT SPCF RECUR Status: Acute Current Visit: Yes - Patient Instructions Diet: Regular Diet as Tolerated Activity: As Tolerated Driving: May Drive Today Showering/Bathing: May Shower Notify Provider of: Fever, Increased Pain, Nausea and/or Vomiting Other/Special Instructions: 1. Recheck with Dr. Domingo in 1 week with a UA. 2. Hold cephalexin until she is done with her Cipro. - Discharge Plan *PRESCRIPTION DRUG MONITORING PROGRAM REVIEWED*: Not Applicable *COPY OF PRESCRIPTION DRUG MONITORING REPORT IN PATIENT ARELY: Not Applicable Prescriptions/Med Rec: Ciprofloxacin HCl [Cipro] 250 mg PO BID #10 tablet Vancomycin HCl 125 mg PO QID #40 capsule Home Medications: Home Meds Citalopram [Citalopram HBr] 40 mg PO DAILY 09/06/16 [History] Fluticasone Propionate [Flonase] 2 spray NASBOTH DAILY PRN 09/06/16 [History] Lutein 20 mg PO 1800 09/06/16 [History] Metoprolol Succinate [Toprol XL] 50 mg PO DAILY 09/06/16 [History] Vitamin B Complex [B Complex] 1 each PO DAILY 09/06/16 [History] Levothyroxine 112.5 mcg PO LANDIN 09/09/16 [History] Acetaminophen [Masophen] 1,000 mg PO Q8H PRN MDD 4000 MG 11/04/17 [History] Furosemide [Lasix] 20 mg PO MOTUWEFRSA 11/04/17 [History] Levothyroxine 75 mcg PO MOTUWETHFRSA 11/04/17 [History] Nitroglycerin [Nitrostat] 0.4 mg SL ASDIRECTED 11/04/17 [History] Potassium Chloride [Klor-Con 10] 10 meq PO DAILY 11/04/17 [History] Coconut Oil 1,000 mg PO BIDMEALS 11/05/17 [History] Gabapentin [Neurontin] 600 mg PO BID@01/25/19 [History] Gabapentin [Neurontin] 900 mg PO BEDTIME 01/25/19 [History] Losartan [Cozaar] 25 mg PO DAILY 06/26/20 [History] Pantoprazole Sodium [Protonix] 40 mg PO ACBREAKFAST 06/26/20 [History] Simvastatin [Zocor] 10 mg PO BEDTIME 06/26/20 [History] cephALEXin [Cephalexin] 250 mg PO DAILY 06/26/20 [History] Ciprofloxacin HCl [Cipro] 250 mg PO BID #10 tablet 06/28/20 [Rx] Vancomycin HCl 125 mg PO QID #40 capsule 06/28/20 [Rx] Forms: ED Department Discharge Referrals: Scot Domingo MD [Primary Care Provider] - - Discharge Summary/Plan Comment DC Time >30 min.: No - Patient Data Vitals - Most Recent: Last Vital Signs Temp 97.8 F 06/27/20 20:00 Pulse 72 06/28/20 08:36 Resp 16 06/28/20 00:00 BP 99/44 L 06/28/20 08:36 Pulse Ox 98 06/27/20 20:00 Weight - Most Recent: 177 lb 5 oz I&O - Last 24 hours: Intake & Output 06/27/20 06/28/20 06/28/20 22:59 06:59 14:59 Intake Total 500 200 Balance 500 200 Lab Results - Last 24 hrs: Laboratory Results - last 24 hr 06/28/20 06/28/20 06/28/20 Range/Units 06:30 06:30 06:30 WBC 13.4 H (4.5-12.0) X10-3/uL RBC 3.21 L (3.23-5.20) x10(6)uL Hgb 8.2 L (11.5-15.5) g/dL Hct 25.0 L (30.0-51.3) % MCV 78.0 L (80-96) fL MCH 25.6 L (27.7-33.6) pg MCHC 32.8 (32.2-35.4) g/dL RDW 18.5 H (11.5-15.5) % Plt Count 392 H (125-369) X10(3)uL MPV 7.7 (7.4-10.4) fL Add Manual Diff Yes Neutrophils % (Manual) 84 H (46-82) % Lymphocytes % (Manual) 10 L (13-37) % Monocytes % (Manual) 6 (4-12) % Sodium 141 (135-145) mmol/L Potassium 4.2 D (3.5-5.3) mmol/L Chloride 111 H (100-110) mmol/L Carbon Dioxide 19 L (21-32) mmol/L BUN 42 H (7-18) mg/dL Creatinine 2.1 H* (0.55-1.02) mg/dL Est Cr Clr Drug Dosing 17.74 mL/min Estimated GFR (MDRD) 23 L (>60) BUN/Creatinine Ratio 20.0 (9-20) Glucose 106 (80-116) mg/dL Calcium 8.0 L (8.6-10.2) mg/dL C-Reactive Protein 9.5 H* (0.5-0.9) mg/dL RONNELL Results - Last 24 hrs: Microbiology 06/26/20 11:44 Urine Culture - Final Urine, Clean Catch Escherichia Coli 06/26/20 12:35 Aerobic Blood Culture - Preliminary Blood - Venous - Lab Draw NO GROWTH AFTER 1 DAY Anaerobic Blood Culture - Preliminary NO GROWTH AFTER 1 DAY 06/26/20 12:30 Aerobic Blood Culture - Preliminary Blood - Venous NO GROWTH AFTER 1 DAY Anaerobic Blood Culture - Preliminary NO GROWTH AFTER 1 DAY Med Orders - Current: Current Medications Acetaminophen (Tylenol) 650 mg PO QID WANDA Last Admin: 06/28/20 08:37 Dose: 650 mg Documented by: Citalopram Hydrobromide (Celexa) 40 mg PO DAILY [facility] Last Admin: 06/28/20 08:35 Dose: 40 mg Documented by: Enoxaparin Sodium (Lovenox) 30 mg SUBCUT Q24H [facility] Last Admin: 06/27/20 17:18 Dose: 30 mg Documented by: Furosemide (Lasix) 20 mg PO MOTUWEFRSA [facility] Last Admin: 06/28/20 08:36 Dose: 20 mg Documented by: Gabapentin (Neurontin) 900 mg PO BEDTIME [facility] Last Admin: 06/27/20 20:46 Dose: 900 mg Documented by: Gabapentin (Neurontin) 600 mg PO BID@08,14 [facility] Last Admin: 06/28/20 08:38 Dose: 600 mg Documented by: Daptomycin 320 mg/ Sodium (Chloride) 50 mls @ 100 mls/hr IV Q48H [facility] Last Admin: 06/26/20 13:52 Dose: 100 mls/hr Documented by: Levofloxacin/Dextrose 250 mg/ (Premix) 50 mls @ 50 mls/hr IV Q48H [facility] Levothyroxine Sodium (Levothyroxine) 112.5 mcg PO Landin@0600 [facility] Levothyroxine Sodium (Levothyroxine) 75 mcg PO MoTuWeThFrSa@0600 [facility] Last Admin: 06/28/20 06:27 Dose: 75 mcg Documented by: Losartan Potassium (Cozaar) 25 mg PO DAILY [facility] Last Admin: 06/28/20 08:36 Dose: 25 mg Documented by: Metoprolol Succinate (Toprol Xl) 50 mg PO DAILY [facility] Last Admin: 06/28/20 08:36 Dose: 50 mg Documented by: Nitroglycerin (Nitrostat) 0.4 mg SL Q5M PRN PRN Reason: CHEST PAIN Pantoprazole Sodium (Protonix) 40 mg PO DAILY@0600 [facility] Last Admin: 06/28/20 06:27 Dose: 40 mg Documented by: Simvastatin (Zocor) 10 mg PO BEDTIME [facility] Discontinued Medications Diphenhydramine HCl (Benadryl) 25 mg IVPUSH ONETIME ONE Stop: 06/26/20 15:55 Last Admin: 06/26/20 16:05 Dose: 25 mg Documented by: Sodium Chloride (Normal Saline) 1,000 mls @ 999 mls/hr IV .BOLUS ONE Stop: 06/26/20 11:43 Last Admin: 06/26/20 11:00 Dose: 999 mls/hr Documented by: Sodium Chloride (Normal Saline) 1,000 mls @ 999 mls/hr IV .BOLUS ONE Stop: 06/26/20 13:13 Last Admin: 06/26/20 13:09 Dose: 999 mls/hr Documented by: Levofloxacin/Dextrose 500 mg/ (Premix) 100 mls @ 100 mls/hr IV ONETIME ONE Stop: 06/26/20 14:24 Last Admin: 06/26/20 15:38 Dose: 100 mls/hr Documented by: Sodium Chloride (Normal Saline) 1,000 mls @ 125 mls/hr IV ASDIRECTED [facility] Last Admin: 06/27/20 04:05 Dose: 125 mls/hr Documented by: Magnesium Sulfate (Magnesium Sulfate In Water Premix) 2 gm in 50 mls @ 25 mls/hr IV ONETIME ONE Stop: 06/26/20 17:59 Last Admin: 06/26/20 17:26 Dose: 25 mls/hr Documented by: Methylprednisolone Sodium Succinate (Solu-Medrol) 125 mg IVPUSH ONETIME ONE Stop: 06/26/20 16:01 Last Admin: 06/26/20 16:03 Dose: 125 mg Documented by: Pantoprazole Sodium (Protonix) 40 mg PO ACBREAKFAST [facility] Potassium Chloride (Klor-Con M20) 40 meq PO ONETIME ONE Stop: 06/26/20 12:15 Last Admin: 06/26/20 13:07 Dose: 40 meq Documented by: Potassium Chloride (Klor-Con 10) 10 meq PO DAILY [facility] Potassium Chloride (Klor-Con M20) 40 meq PO BID@1600,2000 [facility] Stop: 06/26/20 20:01 Last Admin: 06/26/20 19:59 Dose: 40 meq Documented by:
[2020-06-28] MEDS ORDERED: DAPTOmycin 500 MG Vial IVPUSH SCH (15:30)
[2020-06-28] MEDS ORDERED: Levofloxacin/Dextrose 5%-Water 250 MG in Premix Bag 1 BAG IV SCH (16:00)
[2020-07-02] MEDS ORDERED: Levothyroxine 75 MCG Tab PO SCH (06:00)
== END 2020-06-28 10:15 | disposition home or self-care (01) | DRG 683 ==
LOC: FB.ED 09:25 → UNDOADMIN 13:26 → FB.MS 13:26
PROVIDERS: ADMIT Emergency Medicine; ATTEND Family Medicine
DX: N17.9 Acute kidney failure, unspecified (principal); N39.0 Urinary tract infection, site not specified; A04.72 Enterocolitis due to Clostridium difficile, not specified as recurrent; K56.7 Ileus, unspecified; Q62.10 Congenital occlusion of ureter, unspecified; D64.9 Anemia, unspecified; B96.20 Unspecified Escherichia coli [E. coli] as the cause of diseases classified elsewhere; Z20.828 Contact with and (suspected) exposure to other viral communicable diseases; Z51.5 Encounter for palliative care; E78.00 Pure hypercholesterolemia, unspecified; N18.9 Chronic kidney disease, unspecified; K21.9 Gastro-esophageal reflux disease without esophagitis; E87.6 Hypokalemia; F32.9 Major depressive disorder, single episode, unspecified; F41.9 Anxiety disorder, unspecified; D72.829 Elevated white blood cell count, unspecified; Z88.1 Allergy status to other antibiotic agents; Z88.8 Allergy status to other drugs, medicaments and biological substances; Z79.890 Hormone replacement therapy; Z79.899 Other long term (current) drug therapy; N13.5 Crossing vessel and stricture of ureter without hydronephrosis; E86.0 Dehydration; K57.90 Diverticulosis of intestine, part unspecified, without perforation or abscess without bleeding; E83.42 Hypomagnesemia; D50.9 Iron deficiency anemia, unspecified; I51.7 Cardiomegaly; R79.89 Other specified abnormal findings of blood chemistry; R79.82 Elevated C-reactive protein (CRP); E88.09 Other disorders of plasma-protein metabolism, not elsewhere classified; M19.90 Unspecified osteoarthritis, unspecified site; E78.5 Hyperlipidemia, unspecified; E03.9 Hypothyroidism, unspecified; E66.9 Obesity, unspecified; I12.9 Hypertensive chronic kidney disease with stage 1 through stage 4 chronic kidney disease, or unspecified chronic kidney disease; H54.7 Unspecified visual loss; Z87.19 Personal history of other diseases of the digestive system; Z87.442 Personal history of urinary calculi; Z86.59 Personal history of other mental and behavioral disorders; Z79.01 Long term (current) use of anticoagulants; Z98.49 Cataract extraction status, unspecified eye; Z68.30 Body mass index [BMI] 30.0-30.9, adult
CPT/HCPCS: 36415; 71046; 74176; 80053; 81001; 83605; 83735; 83880; 84443; 84484; 85025; 86140; 87040 ×2; 87086; 87186; 87230; 87493; 93005; 93010; 96360; 99285 ×2; A9270; J7030 ×2; U0002; 80048; 99222; 99231; 99238; J0878; J1200; J1650; J1956; J2930; J3475

== ENCOUNTER 2020-11-18 18:06 | Emergency (ER) | payer MEDICARE, BC ==
[2020-11-18 18:38] VITALS: BP 164/74; PULSE 78
--- NOTE | 2020-11-18 18:50 | EDM.PDOC ---
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 where she was dx with C diff and anemia, transfused PRBC there (1 unit per pt) here with pt no pain has had COVID vax x 2, no COVID test last wk CxR 07/14 with peribronchial cuffing PO 91% on RA, however no O2 at home, 95% on 2 l/min O2 altho dec'd to 91% (inc'd body habitus and poor diaphragm excursion, rales at base) says she walks at home - Related Data Allergies Allergy/AdvReac Type Severity Reaction Status Date / Time lisinopril Allergy Unknown Swelling Verified 11/18/20 18:31 amoxicillin [From Augmentin] Allergy Swelling Verified 11/18/20 18:31 clavulanic acid Allergy Swelling Verified 11/18/20 18:31 [From Augmentin] codeine AdvReac Unknown Nausea Verified 11/18/20 18:31 propoxyphene HCl AdvReac Unknown Other Verified 11/18/20 18:31 [From Darvon] Home Meds: Home Meds Citalopram [Citalopram HBr] 40 mg PO DAILY 09/06/16 [History] Fluticasone Propionate [Flonase] 2 spray NASBOTH DAILY PRN 09/06/16 [History] Lutein 20 mg PO 1800 09/06/16 [History] Metoprolol Succinate [Toprol XL] 50 mg PO DAILY 09/06/16 [History] Vitamin B Complex [B Complex] 1 each PO DAILY 09/06/16 [History] Levothyroxine 112.5 mcg PO GRAY 09/09/16 [History] Acetaminophen [Masophen] 1,000 mg PO Q8H PRN MDD 4000 MG 11/04/17 [History] Furosemide [Lasix] 20 mg PO MOTUWEFRSA 11/04/17 [History] Levothyroxine 75 mcg PO MOTUWETHFRSA 11/04/17 [History] Nitroglycerin [Nitrostat] 0.4 mg SL ASDIRECTED 11/04/17 [History] Potassium Chloride [Klor-Con 10] 10 meq PO DAILY 11/04/17 [History] Coconut Oil 1,000 mg PO BIDMEALS 11/05/17 [History] Gabapentin [Neurontin] 600 mg PO BID@08,14 01/25/19 [History] Gabapentin [Neurontin] 900 mg PO BEDTIME 01/25/19 [History] Losartan [Cozaar] 25 mg PO DAILY 06/26/20 [History] Pantoprazole Sodium [Protonix] 40 mg PO ACBREAKFAST 06/26/20 [History] Simvastatin [Zocor] 10 mg PO BEDTIME 06/26/20 [History] cephALEXin [Cephalexin] 250 mg PO DAILY 06/26/20 [History] Ciprofloxacin HCl [Cipro] 250 mg PO BID #10 tablet 06/28/20 [Rx] Vancomycin HCl 125 mg PO QID #40 capsule 06/28/20 [Rx] Past Medical History HEENT History: Reports: Cataract, Impaired Vision, Other (See Below) Other HEENT History: DOUBLE VISION, bilat cataracts, Cardiovascular History: Reports: Heart Murmur, High Cholesterol, Hypertension, Other (See Below) Other Cardiovascular History: Cardiomegaly Respiratory History: Reports: None Gastrointestinal History: Reports: Diverticulosis, GERD, GI Bleed, Other (See Below) Other Gastrointestinal History: C-diff Genitourinary History: Reports: Renal Calculus Other Genitourinary History: PAST KIDNEY STONES. STATES RIGHT KIDNEY DOES NOT FUNCTION. [employer] History: Reports: Other [employer] History: III, PARA III Musculoskeletal History: Reports: Arthritis, Fracture, Osteoarthritis, Other (See Below) Other Musculoskeletal History: BURSITIS OF RIGHT HIP, hx L fx ankle Neurological History: Reports: None Psychiatric History: Reports: Anxiety, Depression Endocrine/Metabolic History: Reports: Hypothyroidism, Obesity/BMI 30+ Hematologic History: Reports: Anemia, Anticoagulation Therapy, Blood Transfusion(s), Iron Deficiency Immunologic History: Reports: None Oncologic (Cancer) History: Reports: None Dermatologic History: Reports: None - Infectious Disease History Infectious Disease History: Reports: Chicken Pox, Measles, Mumps - Past Surgical History Head Surgeries/Procedures: Reports: None HEENT Surgical History: Reports: Adenoidectomy, Tonsillectomy GI Surgical History: Reports: Appendectomy, Cholecystectomy, Colon, Colonoscopy, Colostomy, EGD, Hernia, Abdominal, Other (See Below) Other GI Surgeries/Procedures: PT HAS HAD SEVERAL HERNIA SURGERIES IN THE PAST. STATES MANY COLON SURGERIES INVOLVING COLOSTOMY X 2 R/T LEAKING POST SURGERY. STATES NOW HAS VAGINAL DRAINAGE FROM FISTULA. Female Surgical History: Reports: Hysterectomy, Oophorectomy, Salpingo- Oophorectomy, Other (See Below) Other Female Surgeries/Procedures: CLOSURE OF A VAGINAL FISTULA. Kidney stent placed on 01.19.19 Musculoskeletal Surgical History: Reports: ORIF Other Musculoskeletal Surgeries/Procedures:: L ankle surgery x 2 Social & Family History - Family History Family Medical History: No Pertinent Family History GI: Reports: None - Caffeine Use Caffeine Use: Reports: Soda ED ROS GENERAL - Review of Systems Review Of Systems: See Below Constitutional: Reports: No Symptoms, Weakness. Denies: Fever, Chills, Malaise, Diaphoresis, Decreased Appetite HEENT: Reports: No Symptoms Respiratory: Reports: Shortness of Breath, Cough. Denies: Sputum Cardiovascular: Reports: No Symptoms Endocrine: Reports: No Symptoms GI/Abdominal: Reports: No Symptoms : Reports: No Symptoms Musculoskeletal: Reports: No Symptoms Skin: Reports: No Symptoms Neurological: Reports: No Symptoms Psychiatric: Reports: No Symptoms Hematologic/Lymphatic: Reports: No Symptoms Immunologic: Reports: No Symptoms ED EXAM, GENERAL - Physical Exam Exam: See Below Exam Limited By: No Limitations General Appearance: Alert, WD/WN, No Apparent Distress, Other (alert, pleasant, not ill) Ears: Hearing Grossly Normal Nose: Normal Inspection Throat/Mouth: Normal Inspection, Normal Lips, Normal Teeth, Normal Voice, No Airway Compromise Head: Atraumatic, Normocephalic Neck: Normal Inspection, Supple, Non-Tender, Full Range of Motion. No: Lymphadenopathy (R), Lymphadenopathy (L) Respiratory/Chest: Other (good AE, rales bases, no wheeze, no inc'd exp phase, no purse lips, no accessory msls, no retractions, no cough) Cardiovascular: Regular Rate, Rhythm, Other (2/6 [place] at LSB, RRR, PMI not palp) Back Exam: Normal Inspection, Full Range of Motion. No: CVA Tenderness (R), CVA Tenderness (L) Extremities: Normal Inspection, Normal Range of Motion, Other (2+ pretib edema to knees b/l) Neurological: Alert, Oriented, CN II-XII Intact, Normal Cognition, No Motor/Sensory Deficits Psychiatric: Normal Affect, Normal Mood Skin Exam: Warm, Dry, Intact, Normal Color, No Rash Lymphatic: No Adenopathy Course - Vital Signs Last Recorded V/S: Last Vital Signs Temp 36.8 C 11/18/20 18:15 Pulse 78 11/18/20 18:15 Resp 21 H 11/18/20 18:15 BP 164/74 H 11/18/20 18:15 Pulse Ox 91 L 11/18/20 18:15 - Orders/Labs/Meds Orders: Active Orders 24 hr Category Date Time Status EKG Documentation Completion [RC] ASDIRECTED Care 11/18/20 19:05 Ordered C-REACTIVE PROTEIN [CHEM] Stat Lab 11/18/20 19:00 Ordered CBC WITH AUTO DIFF [HEME] Stat Lab 11/18/20 19:00 Ordered COMPREHENSIVE METABOLIC PN,CMP [CHEM] Stat Lab 11/18/20 19:00 Ordered CORONAVIRUS COVID-19 AVA [MOLEC] Stat Lab 11/18/20 19:00 Ordered CULTURE BLOOD [BC] Urgent Lab 11/18/20 19:06 Ordered CULTURE BLOOD [BC] Urgent Lab 11/18/20 19:06 Ordered LACTIC ACID [CHEM] Stat Lab 11/18/20 19:05 Ordered PRO B-TYPE NATRIUR PEPT,BNPPRO [CHEM] Stat Lab 11/18/20 19:00 Ordered TROPONIN I [CHEM] Stat Lab 11/18/20 19:00 Ordered UA W/MICROSCOPIC [URIN] Stat Lab 11/18/20 19:00 Ordered Blood Culture x2 Reflex Set [OM.PC] Urgent Oth 11/18/20 19:05 Ordered EKG 12 Lead [EK] Routine Ther 11/18/20 19:00 Ordered - Re-Assessments/Exams Free Text/Narrative Re-Assessment/Exam: 11/18/20 19:14 pt signed out to Dr El at change of shift after orders placed, pt aware, stable likely CHF exacerbation, infection unlikely has had low alb likely will need admission for diuresis is on vanco for C diff Departure - Departure Time of Disposition: 19:16 Disposition: Still A Patient 30 Condition: Good Clinical Impression: Hypoxia, Shortness of breath, Fluid overload - Discharge Information *PRESCRIPTION DRUG MONITORING PROGRAM REVIEWED*: Not Applicable *COPY OF PRESCRIPTION DRUG MONITORING REPORT IN PATIENT ARELY: Not Applicable Forms: ED Department Discharge Sepsis Event Note (ED) - Evaluation Sepsis Screening Result: No Definite Risk - Focused Exam Vital Signs: Vital Signs Temp Pulse Resp BP Pulse Ox 11/18/20 18:15 36.8 C 78 21 H 164/74 H 91 L - My Orders Last 24 Hours: My Active Orders 11/18/20 19:00 C-REACTIVE PROTEIN [CHEM] Stat CBC WITH AUTO DIFF [HEME] Stat COMPREHENSIVE METABOLIC PN,CMP [CHEM] Stat CORONAVIRUS COVID-19 AVA [MOLEC] Stat PRO B-TYPE NATRIUR PEPT,BNPPRO [CHEM] Stat TROPONIN I [CHEM] Stat UA W/MICROSCOPIC [URIN] Stat EKG 12 Lead [EK] Routine 11/18/20 19:05 EKG Documentation Completion [RC] ASDIRECTED LACTIC ACID [CHEM] Stat Blood Culture x2 Reflex Set [OM.PC] Urgent 11/18/20 19:06 CULTURE BLOOD [BC] Urgent CULTURE BLOOD [BC] Urgent - Assessment/Plan Last 24 Hours: My Active Orders 11/18/20 19:00 C-REACTIVE PROTEIN [CHEM] Stat CBC WITH AUTO DIFF [HEME] Stat COMPREHENSIVE METABOLIC PN,CMP [CHEM] Stat CORONAVIRUS COVID-19 AVA [MOLEC] Stat PRO B-TYPE NATRIUR PEPT,BNPPRO [CHEM] Stat TROPONIN I [CHEM] Stat UA W/MICROSCOPIC [URIN] Stat EKG 12 Lead [EK] Routine 11/18/20 19:05 EKG Documentation Completion [RC] ASDIRECTED LACTIC ACID [CHEM] Stat Blood Culture x2 Reflex Set [OM.PC] Urgent 11/18/20 19:06 CULTURE BLOOD [BC] Urgent CULTURE BLOOD [BC] Urgent
--- NOTE | 2020-11-18 19:29 | PCM.EKG ---
#1 Interpretation EKG Date: 11/18/20 Time: 19:13 Rhythm: NSR Rate (Beats/Min): 74 [place]: Normal P-Wave: Present QRS: Normal ST-T: Normal QT: Prolonged Comparison: Change From Previous EKG (QTc prolongation)
[2020-11-18] MEDS ORDERED: Albuterol 0.083% 2.5 MG/3 ML Neb Soln NEB ONE (19:48)
[2020-11-18] MEDS: Furosemide 40 MG/4 ML VIAL IVPUSH ONE ×2 (19:52→19:57)
[2020-11-18] MEDS ORDERED: Magnesium Sulfate/Water 2 GM/50 ML BAG IV ONE (20:45)
[2020-11-18] MEDS ORDERED: Enoxaparin 80 MG/0.8 ML Syringe SUBCUT ONE (21:04)
[2020-11-18] MEDS ORDERED: Furosemide 40 MG/4 ML VIAL IVPUSH ONE (21:12)
== END 2020-11-18 22:17 ==
LOC: FB.ED 18:06
DX: J81.1 Chronic pulmonary edema (principal); R09.02 Hypoxemia; E87.70 Fluid overload, unspecified; R79.1 Abnormal coagulation profile; E83.51 Hypocalcemia; E83.42 Hypomagnesemia; N17.9 Acute kidney failure, unspecified; N39.0 Urinary tract infection, site not specified; I10 Essential (primary) hypertension; E78.00 Pure hypercholesterolemia, unspecified; K21.9 Gastro-esophageal reflux disease without esophagitis; E03.9 Hypothyroidism, unspecified; E66.9 Obesity, unspecified; Z68.31 Body mass index [BMI] 31.0-31.9, adult; Z79.01 Long term (current) use of anticoagulants; Z88.8 Allergy status to other drugs, medicaments and biological substances; Z88.1 Allergy status to other antibiotic agents; Z88.0 Allergy status to penicillin; Z88.5 Allergy status to narcotic agent; Z79.899 Other long term (current) drug therapy; Z20.822 Contact with and (suspected) exposure to COVID-19
CPT/HCPCS: 36415; 71046; 80053; 81001; 83605; 83735; 83880; 84484; 85025; 85379; 85610; 85730; 86140; 87040; 87086; 87088; 87186; 93005; 93010; 94640; 96365; 96372; 96375; 99284; 99285-25; J1650; J1940; J3475; U0002

== ENCOUNTER 2020-11-25 10:57 | Observation (INO) | payer MEDICARE, BC ==
--- NOTE | 2020-11-25 11:05 | EDM.PDOC ---
ED HPI GENERAL MEDICAL PROBLEM - General Stated Complaint: fall Time Seen by Provider: 11/25/20 11:05 Source of Information: Reports: Patient History Limitations: Reports: No Limitations - History of Present Illness INITIAL COMMENTS - FREE TEXT/NARRATIVE: 75-year-old female who says to the emergency department from the walk-in clinic secondary to fall with head injury. The patient actually had what sounds like a syncopal episode in her bedroom and fell and hit her occiput was noted by herself to have a blood pressure in the 80s and the day previous when she first got her blood pressure cuff her blood pressures had been 100 systolic. She recently was admitted to [facility] in [place] secondary to decompensated CHF. She had been admitted the week before as well because of bleeding and had been given IV fluids. She was discharged from [facility] on 11/21/2020 and apparently during her stay she was diuresed and her blood pressures were quite high in the 160-170 systolic range. She has been feeling quite weak for the past week but she has been able to get up and do her activities of daily living without any problems. No chest pain. No shortness of breath. No problems urinating. She does have an occipital headache and pain around her right occipital scalp laceration. That pain is rated by her as a 7/10. It is worse with palpation. She also reports posterior neck pain that is mild. No nausea or vomiting. She reports that she has been eating and drinking normally. The bleeding has been controlled by direct pressure. No vision problems. She has no arm or leg weakness. No chronic anticoagulation. There are no other associated signs or symptoms. There are no other modifying factors. 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.) Head Pain Score (Numeric/FACES): 7 - Related Data Allergies Allergy/AdvReac Type Severity Reaction Status Date / Time lisinopril Allergy Unknown Swelling Verified 11/25/20 11:00 amoxicillin [From Augmentin] Allergy Swelling Verified 11/25/20 11:00 clavulanic acid Allergy Swelling Verified 11/25/20 11:00 [From Augmentin] propoxyphene Allergy Other Verified 11/25/20 11:00 codeine AdvReac Unknown Nausea Verified 11/25/20 11:00 propoxyphene HCl AdvReac Unknown Other Verified 11/25/20 11:00 [From Nikko] Home Meds: Home Meds Citalopram [Citalopram HBr] 40 mg PO DAILY 09/06/16 [History] Fluticasone Propionate [Flonase] 2 spray NASBOTH DAILY PRN 09/06/16 [History] Lutein 20 mg PO 1800 09/06/16 [History] Metoprolol Succinate [Toprol XL] 50 mg PO DAILY 09/06/16 [History] Vitamin B Complex [B Complex] 1 each PO DAILY 09/06/16 [History] Levothyroxine 112.5 mcg PO GRAY 09/09/16 [History] Acetaminophen [Masophen] 1,000 mg PO Q8H PRN MDD 4000 MG 11/04/17 [History] Furosemide [Lasix] 20 mg PO MOTUWEFRSA 11/04/17 [History] Levothyroxine 75 mcg PO MOTUWETHFRSA 11/04/17 [History] Nitroglycerin [Nitrostat] 0.4 mg SL ASDIRECTED 11/04/17 [History] Potassium Chloride [Klor-Con 10] 10 meq PO DAILY 11/04/17 [History] Coconut Oil 1,000 mg PO BIDMEALS 11/05/17 [History] Gabapentin [Neurontin] 600 mg PO BID@08,14 01/25/19 [History] Gabapentin [Neurontin] 900 mg PO BEDTIME 01/25/19 [History] Losartan [Cozaar] 25 mg PO DAILY 06/26/20 [History] Pantoprazole Sodium [Protonix] 40 mg PO ACBREAKFAST 06/26/20 [History] Simvastatin [Zocor] 10 mg PO BEDTIME 06/26/20 [History] cephALEXin [Cephalexin] 250 mg PO DAILY 06/26/20 [History] Ciprofloxacin HCl [Cipro] 250 mg PO BID #10 tablet 06/28/20 [Rx] Vancomycin HCl 125 mg PO QID #40 capsule 06/28/20 [Rx] Linezolid [Zyvox] 600 mg PO BID #10 tablet 11/21/20 [Rx] Past Medical History HEENT History: Reports: Cataract, Impaired Vision, Other (See Below) Other HEENT History: DOUBLE VISION, bilat cataracts, Cardiovascular History: Reports: Heart Murmur, High Cholesterol, Hypertension, Other (See Below) Other Cardiovascular History: Cardiomegaly Gastrointestinal History: Reports: Diverticulosis, GERD, GI Bleed, Other (See Below) Other Gastrointestinal History: C-diff Genitourinary History: Reports: Renal Calculus Other Genitourinary History: PAST KIDNEY STONES. STATES RIGHT KIDNEY DOES NOT FUNCTION. 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 Musculoskeletal History: Reports: Arthritis, Fracture, Osteoarthritis, Other (See Below) Other Musculoskeletal History: BURSITIS OF RIGHT HIP, hx L fx ankle Psychiatric History: Reports: Anxiety, Depression Endocrine/Metabolic History: Reports: Hypothyroidism, Obesity/BMI 30+ Hematologic History: Reports: Anemia, Anticoagulation Therapy, Blood Transfusion(s), Iron Deficiency Oncologic (Cancer) History: Reports: None Dermatologic History: Reports: None - Infectious Disease History Infectious Disease History: Reports: Chicken Pox, Measles, Mumps - Past Surgical History HEENT Surgical History: Reports: Adenoidectomy, Tonsillectomy GI Surgical History: Reports: Appendectomy, Cholecystectomy, Colon, Colonoscopy, Colostomy, EGD, Hernia, Abdominal, Other (See Below) Other GI Surgeries/Procedures: PT HAS HAD SEVERAL HERNIA SURGERIES IN THE PAST. STATES MANY COLON SURGERIES INVOLVING COLOSTOMY X 2 R/T LEAKING POST SURGERY. STATES NOW HAS VAGINAL DRAINAGE FROM FISTULA. Female Surgical History: Reports: Hysterectomy, Oophorectomy, Salpingo-Oophorectomy, Other (See Below) Other Female Surgeries/Procedures: CLOSURE OF A VAGINAL FISTULA. Kidney stent placed on 01.19.19 Musculoskeletal Surgical History: Reports: ORIF Other Musculoskeletal Surgeries/Procedures:: L ankle surgery x 2 Social & Family History - Tobacco Use Tobacco Use Status *Q: Never Tobacco User - Caffeine Use Caffeine Use: Reports: Soda - Alcohol Use Alcohol Use History: No - Living Situation & Occupation Living situation: Reports: ED ROS GENERAL - Review of Systems Review Of Systems: See Below Constitutional: Reports: No Symptoms HEENT: Reports: No Symptoms Respiratory: Reports: No Symptoms Cardiovascular: Reports: No Symptoms Endocrine: Reports: No Symptoms GI/Abdominal: Reports: No Symptoms : Reports: No Symptoms Musculoskeletal: Reports: Neck Pain Skin: Reports: No Symptoms Neurological: Reports: Headache, Syncope Psychiatric: Reports: No Symptoms Hematologic/Lymphatic: Reports: No Symptoms Immunologic: Reports: No Symptoms ED EXAM, GENERAL - Physical Exam Exam: See Below Exam Limited By: No Limitations General Appearance: Alert, WD/WN, No Apparent Distress Eye Exam: Bilateral Eye: EOMI, Normal Inspection, PERRL Ears: Normal External Exam, Hearing Grossly Normal Ear Exam: Bilateral Ear: Auricle Normal Nose: Normal Inspection, Normal Mucosa, No Blood Throat/Mouth: Normal Voice, No Airway Compromise Head: Normocephalic, Other (Right scalp tenderness with scalp laceration in the occipital area) Neck: Normal Inspection, Tender Midline Respiratory/Chest: No Respiratory Distress, Lungs Clear, Normal Breath Sounds, No Accessory Muscle Use, Chest Non-Tender Cardiovascular: Normal Peripheral Pulses, Regular Rate, Rhythm, No Gallop Peripheral Pulses: 2+: Radial (L), Radial (R), Dorsalis Pedis (L), Dorsalis Pedis (R) GI/Abdominal: Normal Bowel Sounds, Soft, Non-Tender, No Mass Back Exam: Normal Inspection, Full Range of Motion Extremities: Normal Inspection, Normal Range of Motion, Non-Tender, No Pedal Edema, Normal Capillary Refill, Other (Florien hands bilaterally.) Neurological: Alert, Oriented, CN II-XII Intact, Normal Cognition, No Motor/Sensory Deficits Skin Exam: Warm, Dry, Normal Color, No Rash, Wound/Incision (5 cm laceration to occiput. To the subcutaneous tissue but not involving galea. No crepitus or bony deformity noted.) ED GENERAL MEDICAL PROCEDURES - Laceration/Wound Repair Right Occipital Head Lac/wound length in cm: 6.5 Appearance: Subcutaneous Distal NVT: Neuro & Vascular Intact Anesthetic Type: Local Local Anesthesia - Lidocaine (Xylocaine): 1% Plain Local Anesthetic Volume: 5cc Skin Prep: Saline Saline irrigation (cc's): 500 Exploration/Debridement/Repair: Wound Explored, No Foreign Material Found Closed with: Joselito # of Sutures: 10 (10 joselito.) Tetanus Status Addressed: Yes (Patient was given a Tdap's evaluation.) Complications: No #1 Interpretation EKG Date: 11/25/20 Time: 11:48 Rhythm: NSR Rate (Beats/Min): 63 [place]: LAD-Left [place] Deviation P-Wave: Present QRS: Normal ST-T: Normal QT: Prolonged Comparison: No Change (From EKG performed on 11/18/2020.) Course - Vital Signs Last Recorded V/S: Last Vital Signs Temp 36.6 C 11/25/20 10:57 Pulse 78 11/25/20 13:34 Resp 17 11/25/20 13:34 BP 145/67 H 11/25/20 13:34 Pulse Ox 95 11/25/20 13:34 Orthostatic Blood Pressure [ 117/52 Standing] Orthostatic Blood Pressure [ 124/55 Sitting] Orthostatic Blood Pressure [ 116/52 Supine] - Orders/Labs/Meds Orders: Active Orders 24 hr Category Date Time Status Admission Status [Patient Status] [ADT] Routine ADT 11/25/20 14:37 Ordered Cardiac Monitoring [RC] .As Directed Care 11/25/20 14:37 Ordered EKG Documentation Completion [RC] ASDIRECTED Care 11/25/20 11:28 Active Orthostatic Vital Signs [RC] ONETIME Care 11/25/20 11:27 Active Vaccines to be Administered [RC] PER UNIT ROUTINE Care 11/25/20 11:29 Active Cervical Spine wo Cont [CT] Stat Exams 11/25/20 11:27 Taken Head wo Cont [CT] Stat Exams 11/25/20 11:27 Taken CORONAVIRUS COVID-19 AVA [MOLEC] Stat Lab 11/25/20 13:50 Received CULTURE BLOOD [BC] Urgent Lab 11/25/20 13:45 Received CULTURE BLOOD [BC] Urgent Lab 11/25/20 13:50 Received CULTURE URINE [RM] Stat Lab 11/25/20 12:10 Received Sodium Chloride 0.9% [Normal Saline] 1,000 ml Med 11/25/20 14:00 Active IV ASDIRECTED Sodium Chloride 0.9% [Saline Flush] Med 11/25/20 11:27 Active 10 ml FLUSH ASDIRECTED PRN Blood Culture x2 Reflex Set [OM.PC] Urgent Oth 11/25/20 13:06 Ordered Peripheral IV Insertion Adult [OM.PC] Routine Oth 11/25/20 11:27 Ordered EKG 12 Lead [EK] Routine Ther 11/25/20 11:27 Ordered Medication Orders Sodium Chloride (Normal Saline) 1,000 mls @ 75 mls/hr IV ASDIRECTED WANDA Last Admin: 11/25/20 14:28 Dose: 75 mls/hr Documented by: DHARMESH Sodium Chloride (Sodium Chloride 0.9% 10 Ml Syringe) 10 ml FLUSH ASDIRECTED PRN PRN Reason: Keep Vein Open Labs: Laboratory Tests 11/25/20 11/25/20 11/25/20 Range/Units 11:50 11:50 11:50 WBC 7.4 (3.0-10.3) x10-3/uL RBC 3.47 L (3.60-5.20) x10(6)uL Hgb 9.1 L (11.4-15.5) g/dL Hct 28.9 L (34.2-48.2) % MCV 83.3 (76.7-100.5) fL MCH 26.1 (23.9-33.9) pg MCHC 31.3 L (31.9-34.8) g/dL RDW 21.6 H (12.3-16.5) % Plt Count 337 (151-488) x10(3)uL MPV 8.2 (7.1-12.4) fL Neut % (Auto) 79.5 H (30.8-76.2) % Lymph % (Auto) 6.9 L (18.4-52.1) % [place] % (Auto) 9.1 (4.4-15.7) % Eos % (Auto) 2.3 (0.6-8.1) % Baso % (Auto) 2.2 H (0.2-1.5) % Neut # (Auto) 5.9 (1.5-6.3) x10-3/uL Lymph # (Auto) 0.5 L (1.0-4.4) x10-3/uL [place] # (Auto) 0.7 (0.3-1.0) x10-3/uL Eos # (Auto) 0.2 (0.0-0.8) x10-3/uL Baso # (Auto) 0.2 H (0.0-0.1) x10-3/uL Sodium 141 (135-145) mmol/L Potassium 5.0 (3.5-5.3) mmol/L Chloride 103 (100-110) mmol/L Carbon Dioxide 28 (21-32) mmol/L BUN 32 H D (7-18) mg/dL Creatinine 3.8 H* (0.55-1.02) mg/dL Est Cr Clr Drug Dosing 9.81 mL/min Estimated GFR (MDRD) 12 L (>60) BUN/Creatinine Ratio 8.4 L (9-20) Glucose 106 (80-116) mg/dL Lactic Acid (0.4-2.0) mmol/L Calcium 6.0 L* (8.6-10.2) mg/dL Magnesium 1.6 L (1.8-2.5) mg/dL Total Bilirubin 0.3 (0.1-1.3) mg/dL AST 22 (5-25) IU/L ALT 24 D (12-36) U/L Alkaline Phosphatase 286 H (56-112) IU/L Troponin I 4.5 (4.0-60.3) pg/mL Total Protein 7.5 (6.0-8.0) g/dL Albumin 2.8 L (3.2-4.6) g/dL Globulin 4.7 g/dL Albumin/Globulin Ratio 0.6 Urine Color (YELLOW) Urine Appearance (CLEAR) Urine pH (5.0-6.5) Ur Specific Ebony (1.010-1.025) Urine Protein (NEGATIVE) mg/dL Urine Glucose (UA) (NORMAL) mg/dL Urine Ketones (NEGATIVE) mg/dL Urine Occult Blood (NEGATIVE) Urine Nitrite (NEGATIVE) Urine Bilirubin (NEGATIVE) Urine Urobilinogen (NEGATIVE) mg/dL Ur Leukocyte Esterase (NEGATIVE) Urine RBC (0-5) Urine WBC (0-5) Ur Squamous Epith Cells (NS,R,O) Urine Bacteria (NS) 11/25/20 11/25/20 Range/Units 11:50 12:45 WBC (3.0-10.3) x10-3/uL RBC (3.60-5.20) x10(6)uL Hgb (11.4-15.5) g/dL Hct (34.2-48.2) % MCV (76.7-100.5) fL MCH (23.9-33.9) pg MCHC (31.9-34.8) g/dL RDW (12.3-16.5) % Plt Count (151-488) x10(3)uL MPV (7.1-12.4) fL Neut % (Auto) (30.8-76.2) % Lymph % (Auto) (18.4-52.1) % [place] % (Auto) (4.4-15.7) % Eos % (Auto) (0.6-8.1) % Baso % (Auto) (0.2-1.5) % Neut # (Auto) (1.5-6.3) x10-3/uL Lymph # (Auto) (1.0-4.4) x10-3/uL [place] # (Auto) (0.3-1.0) x10-3/uL Eos # (Auto) (0.0-0.8) x10-3/uL Baso # (Auto) (0.0-0.1) x10-3/uL Sodium (135-145) mmol/L Potassium (3.5-5.3) mmol/L Chloride (100-110) mmol/L Carbon Dioxide (21-32) mmol/L BUN (7-18) mg/dL Creatinine (0.55-1.02) mg/dL Est Cr Clr Drug Dosing mL/min Estimated GFR (MDRD) (>60) BUN/Creatinine Ratio (9-20) Glucose (80-116) mg/dL Lactic Acid 0.9 (0.4-2.0) mmol/L Calcium (8.6-10.2) mg/dL Magnesium (1.8-2.5) mg/dL Total Bilirubin (0.1-1.3) mg/dL AST (5-25) IU/L ALT (12-36) U/L Alkaline Phosphatase (56-112) IU/L Troponin I (4.0-60.3) pg/mL Total Protein (6.0-8.0) g/dL Albumin (3.2-4.6) g/dL Globulin g/dL Albumin/Globulin Ratio Urine Color Yellow (YELLOW) Urine Appearance Slightly cloudy (CLEAR) Urine pH 7.0 H (5.0-6.5) Ur Specific Ebony 1.005 L (1.010-1.025) Urine Protein Negative (NEGATIVE) mg/dL Urine Glucose (UA) Normal (NORMAL) mg/dL Urine Ketones Negative (NEGATIVE) mg/dL Urine Occult Blood Moderate H (NEGATIVE) Urine Nitrite Negative (NEGATIVE) Urine Bilirubin Negative (NEGATIVE) Urine Urobilinogen Normal (NEGATIVE) mg/dL Ur Leukocyte Esterase Large H (NEGATIVE) Urine RBC 5-10 H (0-5) Urine WBC 75-100 H (0-5) Ur Squamous Epith Cells Occasional (NS,R,O) Urine Bacteria Few H (NS) Meds: Medications Generic Name Dose Route Start Last Admin Trade Name Freq PRN Reason Stop Dose Admin Sodium Chloride 1,000 mls @ 75 mls/hr 11/25/20 14:00 11/25/20 14:28 Normal Saline IV 75 mls/hr ASDIRECTED WANDA Administration Sodium Chloride 10 ml 11/25/20 11:27 Sodium Chloride 0.9% 10 Ml Syringe FLUSH ASDIRECTED PRN Keep Vein Open Discontinued Medications Generic Name Dose Route Start Last Admin Trade Name Freq PRN Reason Stop Dose Admin Ceftriaxone Sodium 1 gm 11/25/20 13:54 11/25/20 14:35 Ceftriaxone 1 Gm Vial IVPUSH 11/25/20 13:55 1 gm ONETIME ONE Administration Diphtheria/Tetanus/Acell Pertussis 0.5 ml 11/25/20 11:29 11/25/20 12:18 Diphtheria,Pertussis(Acell),Tetanus Vaccine 0.5 Ml Syringe IM 11/25/20 11:30 0.5 ml .ONCE ONE Administration - Radiology Interpretation Free Text/Narrative:: CT scan of the head showed no evidence of fracture or bleeding but did show an area in the right frontal region that could be an old CVA. This was per the [facility] radiologist. CT scan of the L-spine showed no fracture or malalignment. There was multilevel DDD and there was some sclerotic nature to the bones in that was concerning for either metastatic disease or some kind of metabolic disease. This was per the [facility] radiologist. - Re-Assessments/Exams Free Text/Narrative Re-Assessment/Exam: 11/25/20 12:40: He does have some worsening renal insufficiency with a creatinine that has risen from 3-3.8. Her hemoglobin is stable. Her orthostatic vital signs showed no was steady changes and in fact her blood pressure has risen from the 80 systolic range to the 110 systolic range. This is still quite a bit less than when she was admitted last week. It was in the 160-170 systolic range at that point. She remains awake, alert and appropriate. I am awaiting CT scan of her head and cervical spine. 11/25/20 13:30: CT scan of head showed no fracture or bleeding. The CT scan of the cervical spine showed no fracture or malalignment. Her blood pressure is remaining in the 110 systolic range. She does feel somewhat better. She is not really having any dizziness now. Urinalysis did show evidence of a UTI. I sent the urine for culture. 11/25/20 14:20: The patient's right occipital scalp wound was cleaned and stapled. She tolerated this well. With the patient having the hypotension, the urinalysis showing evidence of a urinary tract infection and with the patient's complicated medical history, I feel that she will need admission for gentle hydration and IV antibiotics with close monitoring of her blood pressure. I did call and discuss this with Dr. Cheatham, hospitalist, and he has agreed to admit the patient. The patient will be placed on observation status Dr. Cheatham will see the patient in the emergency department. Departure - Departure Time of Disposition: 14:37 Disposition: Refer to Observation Condition: Fair (Stable.) Clinical Impression: UTI (urinary tract infection) Qualifiers: Urinary tract infection type: site unspecified Hematuria presence: without hematuria Qualified Code(s): N39.0 - Urinary tract infection, site not specified Hypotension Qualifiers: Hypotension type: other hypotension type Qualified Code(s): I95.89 - Other hypotension Occipital scalp laceration Qualifiers: Encounter type: initial encounter Qualified Code(s): S01.01XA - Laceration without foreign body of scalp, initial encounter Syncope Qualifiers: Syncope type: unspecified Qualified Code(s): R55 - Syncope and collapse - Discharge Information Sepsis Event Note (ED) - Focused Exam Vital Signs: Vital Signs Temp Pulse Resp BP Pulse Ox 11/25/20 13:34 78 17 145/67 H 95 11/25/20 11:07 92/46 L 11/25/20 10:57 36.6 C 67 17 84/61 L 97 - My Orders Last 24 Hours: My Active Orders 11/25/20 11:27 Orthostatic Vital Signs [RC] ONETIME Cervical Spine wo Cont [CT] Stat Head wo Cont [CT] Stat Sodium Chloride 0.9% [Saline Flush] 10 ml FLUSH ASDIRECTED PRN Peripheral IV Insertion Adult [OM.PC] Routine EKG 12 Lead [EK] Routine 11/25/20 11:28 EKG Documentation Completion [RC] ASDIRECTED 11/25/20 11:29 Vaccines to be Administered [RC] PER UNIT ROUTINE 11/25/20 12:10 CULTURE URINE [RM] Stat 11/25/20 13:06 Blood Culture x2 Reflex Set [OM.PC] Urgent 11/25/20 13:45 CULTURE BLOOD [BC] Urgent 11/25/20 13:50 CORONAVIRUS COVID-19 AVA [MOLEC] Stat CULTURE BLOOD [BC] Urgent 11/25/20 14:00 Sodium Chloride 0.9% [Normal Saline] 1,000 ml IV ASDIRECTED 11/25/20 14:37 Admission Status [Patient Status] [ADT] Routine Cardiac Monitoring [RC] .As Directed - Assessment/Plan Last 24 Hours: My Active Orders 11/25/20 11:27 Orthostatic Vital Signs [RC] ONETIME Cervical Spine wo Cont [CT] Stat Head wo Cont [CT] Stat Sodium Chloride 0.9% [Saline Flush] 10 ml FLUSH ASDIRECTED PRN Peripheral IV Insertion Adult [OM.PC] Routine EKG 12 Lead [EK] Routine 11/25/20 11:28 EKG Documentation Completion [RC] ASDIRECTED 11/25/20 11:29 Vaccines to be Administered [RC] PER UNIT ROUTINE 11/25/20 12:10 CULTURE URINE [RM] Stat 11/25/20 13:06 Blood Culture x2 Reflex Set [OM.PC] Urgent 11/25/20 13:45 CULTURE BLOOD [BC] Urgent 11/25/20 13:50 CORONAVIRUS COVID-19 AVA [MOLEC] Stat CULTURE BLOOD [BC] Urgent 11/25/20 14:00 Sodium Chloride 0.9% [Normal Saline] 1,000 ml IV ASDIRECTED 11/25/20 14:37 Admission Status [Patient Status] [ADT] Routine Cardiac Monitoring [RC] .As Directed
[2020-11-25] MEDS ORDERED: Sodium Chloride 0.9% 10 ML Syringe FLUSH PRN (11:27)
[2020-11-25] MEDS ORDERED: Diphtheria,Pertussis(Acell),Tetanus Vaccine 0.5 ML Syringe IM ONE (11:29)
[2020-11-25] MEDS ORDERED: cefTRIAXone 1 GM Vial IVPUSH ONE (13:54)
[2020-11-25] MEDS: Sodium Chloride 0.9% 1,000 ML IV SCH (14:28)
[2020-11-25] MEDS ORDERED: Calcium Gluconate 10% 1 GM/10 ML SDV IVPUSH ONE ×2 (15:53→20:42)
[2020-11-25] MEDS ORDERED: Enoxaparin 30 MG/0.3 ML Syringe SUBCUT SCH (16:00)
--- NOTE | 2020-11-25 16:04 | PCM.HP.2 ---
H&P History of Present Illness - General Date of Service: 11/25/20 Admit Problem/Dx: Admission Diagnosis/Problem Admission Diagnosis/Problem Hypotension Source of Information: Patient History Limitations: Reports: No Limitations - History of Present Illness Initial Comments - Free Text/Narative: This is a 75-year-old female patient comes at the ER because her systolic blood pressure was in the 80s and she fell over and hit her head and sustained a laceration. She was found to be dehydrated with her acute upon chronic renal failure and was hydrated and blood pressure was better. It was felt that she should be admitted overnight. She had positive urine for UTI. She denies dysuria, pyuria, hematuria. She says she's had a little bit of shaking and weakness. She denies any chest pain, palpitations, shortness breath, wheezing or cough. Patient was placed in the hospital in [place] for restrictive deficit. She lots of fluids per she got out felt good with a day or 2 later she was short of breath or leg swelling and came here to the hospital and sent to [place] and was diuresed. She just got out of the hospital 3-4 days ago and now she is dehydrated. She says she normally takes Lasix 3 times a week in house on a daily. She does not know the dose of which she is taking now or before. Head Pain Score (Numeric/FACES): 7 - Related Data Allergies/Adverse Reactions: Allergies Allergy/AdvReac Type Severity Reaction Status Date / Time lisinopril Allergy Unknown Swelling Verified 11/25/20 11:00 amoxicillin [From Augmentin] Allergy Swelling Verified 11/25/20 11:00 clavulanic acid Allergy Swelling Verified 11/25/20 11:00 [From Augmentin] propoxyphene Allergy Other Verified 11/25/20 11:00 codeine AdvReac Unknown Nausea Verified 11/25/20 11:00 propoxyphene HCl AdvReac Unknown Other Verified 11/25/20 11:00 [From Darvon] Home Medications: Home Meds Citalopram [Citalopram HBr] 40 mg PO DAILY 09/06/16 [History] Fluticasone Propionate [Flonase] 2 spray NASBOTH DAILY PRN 09/06/16 [History] Lutein 20 mg PO 1800 09/06/16 [History] Metoprolol Succinate [Toprol XL] 50 mg PO DAILY 09/06/16 [History] Vitamin B Complex [B Complex] 1 each PO DAILY 09/06/16 [History] Levothyroxine 112.5 mcg PO GRAY 09/09/16 [History] Acetaminophen [Masophen] 1,000 mg PO Q8H PRN MDD 4000 MG 11/04/17 [History] Furosemide [Lasix] 20 mg PO MOTUWEFRSA 11/04/17 [History] Levothyroxine 75 mcg PO MOTUWETHFRSA 11/04/17 [History] Nitroglycerin [Nitrostat] 0.4 mg SL ASDIRECTED 11/04/17 [History] Potassium Chloride [Klor-Con 10] 10 meq PO DAILY 11/04/17 [History] Coconut Oil 1,000 mg PO BIDMEALS 11/05/17 [History] Gabapentin [Neurontin] 600 mg PO BID@08,14 01/25/19 [History] Gabapentin [Neurontin] 900 mg PO BEDTIME 01/25/19 [History] Losartan [Cozaar] 25 mg PO DAILY 06/26/20 [History] Pantoprazole Sodium [Protonix] 40 mg PO ACBREAKFAST 06/26/20 [History] Simvastatin [Zocor] 10 mg PO BEDTIME 06/26/20 [History] cephALEXin [Cephalexin] 250 mg PO DAILY 06/26/20 [History] Ciprofloxacin HCl [Cipro] 250 mg PO BID #10 tablet 06/28/20 [Rx] Vancomycin HCl 125 mg PO QID #40 capsule 06/28/20 [Rx] Linezolid [Zyvox] 600 mg PO BID #10 tablet 11/21/20 [Rx] Past Medical History HEENT History: Reports: Cataract, Impaired Vision, Other (See Below) Other HEENT History: DOUBLE VISION, bilat cataracts, Cardiovascular History: Reports: Heart Murmur, High Cholesterol, Hypertension, Other (See Below) Other Cardiovascular History: Cardiomegaly Respiratory History: Reports: None Gastrointestinal History: Reports: Diverticulosis, GERD, GI Bleed, Other (See Below) Other Gastrointestinal History: C-diff Genitourinary History: Reports: Renal Calculus Other Genitourinary History: PAST KIDNEY STONES. STATES RIGHT KIDNEY DOES NOT FUNCTION. 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: Other OB/BYN History: III, PARA III Musculoskeletal History: Reports: Arthritis, Fracture, Osteoarthritis, Other (See Below) Other Musculoskeletal History: BURSITIS OF RIGHT HIP, hx L fx ankle Neurological History: Reports: None Psychiatric History: Reports: Anxiety, Depression Endocrine/Metabolic History: Reports: Hypothyroidism, Obesity/BMI 30+ Hematologic History: Reports: Anemia, Anticoagulation Therapy, Blood Transfusion(s), Iron Deficiency Immunologic History: Reports: None Oncologic (Cancer) History: Reports: None Dermatologic History: Reports: None - Infectious Disease History Infectious Disease History: Reports: Chicken Pox, Measles, Mumps - Past Surgical History Head Surgeries/Procedures: Reports: None HEENT Surgical History: Reports: Adenoidectomy, Tonsillectomy GI Surgical History: Reports: Appendectomy, Cholecystectomy, Colon, Colonoscopy, Colostomy, EGD, Hernia, Abdominal, Other (See Below) Other GI Surgeries/Procedures: PT HAS HAD SEVERAL HERNIA SURGERIES IN THE PAST. STATES MANY COLON SURGERIES INVOLVING COLOSTOMY X 2 R/T LEAKING POST SURGERY. STATES NOW HAS VAGINAL DRAINAGE FROM FISTULA. Female Surgical History: Reports: Hysterectomy, Oophorectomy, Salpingo-Oo phorectomy, Other (See Below) Other Female Surgeries/Procedures: CLOSURE OF A VAGINAL FISTULA. Kidney stent placed on 01.19.19 Musculoskeletal Surgical History: Reports: ORIF Other Musculoskeletal Surgeries/Procedures:: L ankle surgery x 2 Social & Family History - Family History Family Medical History: No Pertinent Family History GI: Reports: None - Tobacco Use Tobacco Use Status *Q: Never Tobacco User - Caffeine Use Caffeine Use: Reports: None - Recreational Drug Use Recreational Drug Use: No - Living Situation & Occupation Living situation: Reports: H&P Review of Systems - Review of Systems: Review Of Systems: See Below General: Reports: Weakness, Fatigue HEENT: Reports: No Symptoms Pulmonary: Reports: No Symptoms Cardiovascular: Reports: No Symptoms Gastrointestinal: Reports: No Symptoms Genitourinary: Reports: No Symptoms Musculoskeletal: Reports: No Symptoms Skin: Reports: No Symptoms Psychiatric: Reports: No Symptoms Neurological: Reports: Dizziness Hematologic/Lymphatic: Reports: No Symptoms Immunologic: Reports: No Symptoms Exam - Exam Exam: See Below - Vital Signs Vital Signs: Last Vital Signs Temp 98 F 11/25/20 10:57 Pulse 78 11/25/20 13:34 Resp 17 11/25/20 13:34 BP 145/67 H 11/25/20 13:34 Pulse Ox 95 11/25/20 13:34 Orthostatic Blood Pressure [ 117/52 Standing] Orthostatic Blood Pressure [ 124/55 Sitting] Orthostatic Blood Pressure [ 116/52 Supine] Weight: 166 lb 3.2 oz - Exam General: Alert, Oriented, Cooperative HEENT: PERRLA, Hearing Intact, Posterior Pharynx Clear, Pupils Equal, TMs Clear Neck: Supple, Trachea Midline Lungs: Clear to Auscultation, Normal Respiratory Effort Cardiovascular: Regular Rhythm. No: Systolic Murmur GI/Abdominal Exam: Normal Bowel Sounds, Soft, Non-Tender, No Distention Back Exam: Normal Inspection, Full Range of Motion Extremities: Normal Inspection, Non-Tender, No Pedal Edema Skin: Warm, Dry, Intact Neurological: Normal Speech, Normal Tone Psychiatric: Alert, Normal Affect, Normal Mood - Patient Data Lab Results Last 24 hrs: Laboratory Results - last 24 hr 11/25/20 11/25/20 11/25/20 Range/Units 11:50 11:50 11:50 WBC 7.4 (3.0-10.3) x10-3/uL RBC 3.47 L (3.60-5.20) x10(6)uL Hgb 9.1 L (11.4-15.5) g/dL Hct 28.9 L (34.2-48.2) % MCV 83.3 (76.7-100.5) fL MCH 26.1 (23.9-33.9) pg MCHC 31.3 L (31.9-34.8) g/dL RDW 21.6 H (12.3-16.5) % Plt Count 337 (151-488) x10(3)uL MPV 8.2 (7.1-12.4) fL Neut % (Auto) 79.5 H (30.8-76.2) % Lymph % (Auto) 6.9 L (18.4-52.1) % [place] % (Auto) 9.1 (4.4-15.7) % Eos % (Auto) 2.3 (0.6-8.1) % Baso % (Auto) 2.2 H (0.2-1.5) % Neut # (Auto) 5.9 (1.5-6.3) x10-3/uL Lymph # (Auto) 0.5 L (1.0-4.4) x10-3/uL [place] # (Auto) 0.7 (0.3-1.0) x10-3/uL Eos # (Auto) 0.2 (0.0-0.8) x10-3/uL Baso # (Auto) 0.2 H (0.0-0.1) x10-3/uL Sodium 141 (135-145) mmol/L Potassium 5.0 (3.5-5.3) mmol/L Chloride 103 (100-110) mmol/L Carbon Dioxide 28 (21-32) mmol/L BUN 32 H D (7-18) mg/dL Creatinine 3.8 H* (0.55-1.02) mg/dL Est Cr Clr Drug Dosing 9.81 mL/min Estimated GFR (MDRD) 12 L (>60) BUN/Creatinine Ratio 8.4 L (9-20) Glucose 106 (80-116) mg/dL Lactic Acid (0.4-2.0) mmol/L Calcium 6.0 L* (8.6-10.2) mg/dL Magnesium 1.6 L (1.8-2.5) mg/dL Total Bilirubin 0.3 (0.1-1.3) mg/dL AST 22 (5-25) IU/L ALT 24 D (12-36) U/L Alkaline Phosphatase 286 H (56-112) IU/L Troponin I 4.5 (4.0-60.3) pg/mL Total Protein 7.5 (6.0-8.0) g/dL Albumin 2.8 L (3.2-4.6) g/dL Globulin 4.7 g/dL Albumin/Globulin Ratio 0.6 Urine Color (YELLOW) Urine Appearance (CLEAR) Urine pH (5.0-6.5) Ur Specific [place] (1.010-1.025) Urine Protein (NEGATIVE) mg/dL Urine Glucose (UA) (NORMAL) mg/dL Urine Ketones (NEGATIVE) mg/dL Urine Occult Blood (NEGATIVE) Urine Nitrite (NEGATIVE) Urine Bilirubin (NEGATIVE) Urine Urobilinogen (NEGATIVE) mg/dL Ur Leukocyte Esterase (NEGATIVE) Urine RBC (0-5) Urine WBC (0-5) Ur Squamous Epith Cells (NS,R,O) Urine Bacteria (NS) SARS-CoV-2 RNA (AVA) (NEGATIVE) 11/25/20 11/25/20 11/25/20 Range/Units 11:50 12:45 13:50 WBC (3.0-10.3) x10-3/uL RBC (3.60-5.20) x10(6)uL Hgb (11.4-15.5) g/dL Hct (34.2-48.2) % MCV (76.7-100.5) fL MCH (23.9-33.9) pg MCHC (31.9-34.8) g/dL RDW (12.3-16.5) % Plt Count (151-488) x10(3)uL MPV (7.1-12.4) fL Neut % (Auto) (30.8-76.2) % Lymph % (Auto) (18.4-52.1) % [place] % (Auto) (4.4-15.7) % Eos % (Auto) (0.6-8.1) % Baso % (Auto) (0.2-1.5) % Neut # (Auto) (1.5-6.3) x10-3/uL Lymph # (Auto) (1.0-4.4) x10-3/uL [place] # (Auto) (0.3-1.0) x10-3/uL Eos # (Auto) (0.0-0.8) x10-3/uL Baso # (Auto) (0.0-0.1) x10-3/uL Sodium (135-145) mmol/L Potassium (3.5-5.3) mmol/L Chloride (100-110) mmol/L Carbon Dioxide (21-32) mmol/L BUN (7-18) mg/dL Creatinine (0.55-1.02) mg/dL Est Cr Clr Drug Dosing mL/min Estimated GFR (MDRD) (>60) BUN/Creatinine Ratio (9-20) Glucose (80-116) mg/dL Lactic Acid 0.9 (0.4-2.0) mmol/L Calcium (8.6-10.2) mg/dL Magnesium (1.8-2.5) mg/dL Total Bilirubin (0.1-1.3) mg/dL AST (5-25) IU/L ALT (12-36) U/L Alkaline Phosphatase (56-112) IU/L Troponin I (4.0-60.3) pg/mL Total Protein (6.0-8.0) g/dL Albumin (3.2-4.6) g/dL Globulin g/dL Albumin/Globulin Ratio Urine Color Yellow (YELLOW) Urine Appearance Slightly cloudy (CLEAR) Urine pH 7.0 H (5.0-6.5) Ur Specific [place] 1.005 L (1.010-1.025) Urine Protein Negative (NEGATIVE) mg/dL Urine Glucose (UA) Normal (NORMAL) mg/dL Urine Ketones Negative (NEGATIVE) mg/dL Urine Occult Blood Moderate H (NEGATIVE) Urine Nitrite Negative (NEGATIVE) Urine Bilirubin Negative (NEGATIVE) Urine Urobilinogen Normal (NEGATIVE) mg/dL Ur Leukocyte Esterase Large H (NEGATIVE) Urine RBC 5-10 H (0-5) Urine WBC 75-100 H (0-5) Ur Squamous Epith Cells Occasional (NS,R,O) Urine Bacteria Few H (NS) SARS-CoV-2 RNA (AVA) Negative (NEGATIVE) Result Diagrams: 11/25/20 11:50 11/25/20 11:50 Sepsis Event Note - Evaluation Sepsis Screening Result: No Definite Risk - Focused Exam Vital Signs: Vital Signs Temp Pulse Resp BP Pulse Ox 11/25/20 13:34 78 17 145/67 H 95 11/25/20 11:07 92/46 L 11/25/20 10:57 98 F 67 17 84/61 L 97 - Problem List (1) Acquired hypocalciuric hypercalcemia SNOMED Code(s): 598005078 ICD Code: E83.52 - HYPERCALCEMIA Status: Acute Current Visit: Yes (2) Hypotension SNOMED Code(s): 87528634 ICD Code: I95.9 - HYPOTENSION, UNSPECIFIED Status: Acute Current Visit: Yes Qualifiers: Hypotension type: other hypotension type Qualified Code(s): I95.89 - Other hypotension (3) Occipital scalp laceration SNOMED Code(s): 568093120 ICD Code: S01.01XA - LACERATION WITHOUT FOREIGN BODY OF SCALP, INITIAL ENCOUNTER Status: Acute Current Visit: Yes Qualifiers: Encounter type: initial encounter Qualified Code(s): S01.01XA - Laceration without foreign body of scalp, initial encounter (4) Syncope SNOMED Code(s): 925633589 ICD Code: R55 - SYNCOPE AND COLLAPSE Status: Acute Current Visit: Yes Qualifiers: Syncope type: unspecified Qualified Code(s): R55 - Syncope and collapse (5) UTI (urinary tract infection) SNOMED Code(s): 03605003 ICD Code: N39.0 - URINARY TRACT INFECTION, SITE NOT SPECIFIED Status: Acute Current Visit: Yes Qualifiers: Urinary tract infection type: site unspecified Hematuria presence: without hematuria Qualified Code(s): N39.0 - Urinary tract infection, site not specified (6) Acute on chronic renal failure SNOMED Code(s): 290812512 ICD Code: N17.9 - ACUTE KIDNEY FAILURE, UNSPECIFIED; N18.9 - CHRONIC KIDNEY DISEASE, UNSPECIFIED Status: Acute Current Visit: No (7) Hypoalbuminemia SNOMED Code(s): 814770429 ICD Code: E88.09 - OTH DISORDERS OF PLASMA-PROTEIN METABOLISM, NEC Status: Acute Current Visit: No (8) Palliative care status SNOMED Code(s): 033367617 ICD Code: Z51.5 - ENCOUNTER FOR PALLIATIVE CARE Status: Acute Current Visit: No Problem List Initiated/Reviewed/Updated: Yes Orders Last 24hrs: Active Orders 24 hr Category Date Time Status Admission Status [Patient Status] [ADT] Routine ADT 11/25/20 14:37 Active Cardiac Monitoring [RC] .As Directed Care 11/25/20 14:37 Active Daily Weight [Height and Weight] [RC] DAILY Care 11/25/20 15:58 Ordered Up With Assistance [RC] ASDIRECTED Care 11/25/20 15:54 Ordered Vaccines to be Administered [RC] PER UNIT ROUTINE Care 11/25/20 11:29 Active Regular Diet [DIET] Diet 11/25/20 Dinner Ordered Cervical Spine wo Cont [CT] Stat Exams 11/25/20 11:27 Taken Head wo Cont [CT] Stat Exams 11/25/20 11:27 Taken CULTURE BLOOD [BC] Urgent Lab 11/25/20 13:45 Received CULTURE BLOOD [BC] Urgent Lab 11/25/20 13:50 Received CULTURE URINE [RM] Stat Lab 11/25/20 12:10 Received Enoxaparin [Lovenox] Med 11/25/20 16:00 Ordered 30 mg SUBCUT Q24H Sodium Chloride 0.9% [Normal Saline] 1,000 ml Med 11/25/20 14:00 Active IV ASDIRECTED Sodium Chloride 0.9% [Saline Flush] Med 11/25/20 11:27 Active 10 ml FLUSH ASDIRECTED PRN cefTRIAXone [Rocephin] 1 gm Med 11/26/20 16:00 Ordered Sodium Chloride 0.9% [Normal Saline] 50 ml IV Q24H Blood Culture x2 Reflex Set [OM.PC] Urgent Oth 11/25/20 13:06 Ordered Peripheral IV Insertion Adult [OM.PC] Routine Oth 11/25/20 11:27 Ordered Code Status [Resuscitation Status] Routine Resus Stat 11/25/20 15:52 Ordered EKG 12 Lead [EK] Routine Ther 11/25/20 11:27 Ordered Medication Orders Enoxaparin Sodium (Enoxaparin 30 Mg/0.3 Ml Syringe) 30 mg SUBCUT Q24H WANDA Sodium Chloride (Normal Saline) 1,000 mls @ 75 mls/hr IV ASDIRECTED WANDA Last Admin: 11/25/20 14:28 Dose: 75 mls/hr Documented by: DHARMESH Ceftriaxone Sodium 1 gm/ (Sodium Chloride) 50 mls @ 200 mls/hr IV Q24H WANDA Sodium Chloride (Sodium Chloride 0.9% 10 Ml Syringe) 10 ml FLUSH ASDIRECTED PRN PRN Reason: Keep Vein Open Assessment/Plan Comment:: 1. Admit for observation. 2. Regular diet 3. Up with assist 4. IV fluids 5. Full code per patient 6. Rocephin 1 g every 24 for UTI 7. calcium IV to bring the calcium up. 8. Patient is going to have bring medications we can reconcile and see what she is on and start what is appropriate. 9. Repeat laboratory in the a.m. and evening after the potassium. - Mortality Measure Prognosis:: Good
[2020-11-25] MEDS ORDERED: Acetaminophen 500 MG Tab PO SCH ×2 (17:15→21:00)
[2020-11-25] MEDS ORDERED: Nitroglycerin 0.4 MG Tab.SL SL PRN (17:43)
[2020-11-25] MEDS ORDERED: Sodium Bicarbonate 650 MG Tab PO SCH (21:00)
[2020-11-25] MEDS ORDERED: Simvastatin 10 MG Tab **OWN MED PO SCH (21:00)
[2020-11-25] MEDS ORDERED: Gabapentin 300 MG Cap PO SCH ×2 (21:00)
[2020-11-25] MEDS ORDERED: Metoprolol Succinate 50 MG Tab.ER **OWN MED PO SCH (21:00)
[2020-11-26] MEDS: Sodium Chloride 0.9% 1,000 ML IV SCH (03:42)
[2020-11-26] MEDS ORDERED: Pantoprazole 40 MG Tab.CR **OWN MED PO SCH (06:00)
[2020-11-26] MEDS ORDERED: Levothyroxine 75 MCG Tab **OWN MED PO SCH (06:00)
--- NOTE | 2020-11-26 07:47 | PCM.PN ---
- General Info Date of Service: 11/26/20 Subjective Update: Patient has no concerns. She feels good. She has no dizziness, headaches, chest pain, shortness of breath, palpitations, shaking or weakness. - Patient Data Vitals - Most Recent: Last Vital Signs Temp 98.1 F 11/26/20 03:40 Pulse 66 11/26/20 03:40 Resp 18 11/26/20 03:40 BP 149/76 H 11/26/20 03:40 Pulse Ox 95 11/26/20 03:40 Orthostatic Blood Pressure [ 117/52 Standing] Orthostatic Blood Pressure [ 124/55 Sitting] Orthostatic Blood Pressure [ 116/52 Supine] Weight - Most Recent: 168 lb I&O - Last 24 Hours: Intake & Output 11/25/20 11/26/20 11/26/20 22:59 06:59 14:59 Intake Total 462 591 Output Total 300 Balance 162 591 Lab Results Last 24 Hours: Laboratory Results - last 24 hr 11/25/20 11/25/20 11/25/20 Range/Units 11:50 11:50 11:50 WBC 7.4 (3.0-10.3) x10-3/uL RBC 3.47 L (3.60-5.20) x10(6)uL Hgb 9.1 L (11.4-15.5) g/dL Hct 28.9 L (34.2-48.2) % MCV 83.3 (76.7-100.5) fL MCH 26.1 (23.9-33.9) pg MCHC 31.3 L (31.9-34.8) g/dL RDW 21.6 H (12.3-16.5) % Plt Count 337 (151-488) x10(3)uL MPV 8.2 (7.1-12.4) fL Neut % (Auto) 79.5 H (30.8-76.2) % Lymph % (Auto) 6.9 L (18.4-52.1) % [place] % (Auto) 9.1 (4.4-15.7) % Eos % (Auto) 2.3 (0.6-8.1) % Baso % (Auto) 2.2 H (0.2-1.5) % Neut # (Auto) 5.9 (1.5-6.3) x10-3/uL Lymph # (Auto) 0.5 L (1.0-4.4) x10-3/uL [place] # (Auto) 0.7 (0.3-1.0) x10-3/uL Eos # (Auto) 0.2 (0.0-0.8) x10-3/uL Baso # (Auto) 0.2 H (0.0-0.1) x10-3/uL Sodium 141 (135-145) mmol/L Potassium 5.0 (3.5-5.3) mmol/L Chloride 103 (100-110) mmol/L Carbon Dioxide 28 (21-32) mmol/L BUN 32 H D (7-18) mg/dL Creatinine 3.8 H* (0.55-1.02) mg/dL Est Cr Clr Drug Dosing 9.81 mL/min Estimated GFR (MDRD) 12 L (>60) BUN/Creatinine Ratio 8.4 L (9-20) Glucose 106 (80-116) mg/dL Lactic Acid (0.4-2.0) mmol/L Calcium 6.0 L* (8.6-10.2) mg/dL Magnesium 1.6 L (1.8-2.5) mg/dL Total Bilirubin 0.3 (0.1-1.3) mg/dL AST 22 (5-25) IU/L ALT 24 D (12-36) U/L Alkaline Phosphatase 286 H (56-112) IU/L Troponin I 4.5 (4.0-60.3) pg/mL Total Protein 7.5 (6.0-8.0) g/dL Albumin 2.8 L (3.2-4.6) g/dL Globulin 4.7 g/dL Albumin/Globulin Ratio 0.6 Urine Color (YELLOW) Urine Appearance (CLEAR) Urine pH (5.0-6.5) Ur Specific [place] (1.010-1.025) Urine Protein (NEGATIVE) mg/dL Urine Glucose (UA) (NORMAL) mg/dL Urine Ketones (NEGATIVE) mg/dL Urine Occult Blood (NEGATIVE) Urine Nitrite (NEGATIVE) Urine Bilirubin (NEGATIVE) Urine Urobilinogen (NEGATIVE) mg/dL Ur Leukocyte Esterase (NEGATIVE) Urine RBC (0-5) Urine WBC (0-5) Ur Squamous Epith Cells (NS,R,O) Urine Bacteria (NS) SARS-CoV-2 RNA (AVA) (NEGATIVE) 11/25/20 11/25/20 11/25/20 Range/Units 11:50 12:45 13:50 WBC (3.0-10.3) x10-3/uL RBC (3.60-5.20) x10(6)uL Hgb (11.4-15.5) g/dL Hct (34.2-48.2) % MCV (76.7-100.5) fL MCH (23.9-33.9) pg MCHC (31.9-34.8) g/dL RDW (12.3-16.5) % Plt Count (151-488) x10(3)uL MPV (7.1-12.4) fL Neut % (Auto) (30.8-76.2) % Lymph % (Auto) (18.4-52.1) % [place] % (Auto) (4.4-15.7) % Eos % (Auto) (0.6-8.1) % Baso % (Auto) (0.2-1.5) % Neut # (Auto) (1.5-6.3) x10-3/uL Lymph # (Auto) (1.0-4.4) x10-3/uL [place] # (Auto) (0.3-1.0) x10-3/uL Eos # (Auto) (0.0-0.8) x10-3/uL Baso # (Auto) (0.0-0.1) x10-3/uL Sodium (135-145) mmol/L Potassium (3.5-5.3) mmol/L Chloride (100-110) mmol/L Carbon Dioxide (21-32) mmol/L BUN (7-18) mg/dL Creatinine (0.55-1.02) mg/dL Est Cr Clr Drug Dosing mL/min Estimated GFR (MDRD) (>60) BUN/Creatinine Ratio (9-20) Glucose (80-116) mg/dL Lactic Acid 0.9 (0.4-2.0) mmol/L Calcium (8.6-10.2) mg/dL Magnesium (1.8-2.5) mg/dL Total Bilirubin (0.1-1.3) mg/dL AST (5-25) IU/L ALT (12-36) U/L Alkaline Phosphatase (56-112) IU/L Troponin I (4.0-60.3) pg/mL Total Protein (6.0-8.0) g/dL Albumin (3.2-4.6) g/dL Globulin g/dL Albumin/Globulin Ratio Urine Color Yellow (YELLOW) Urine Appearance Slightly cloudy (CLEAR) Urine pH 7.0 H (5.0-6.5) Ur Specific [place] 1.005 L (1.010-1.025) Urine Protein Negative (NEGATIVE) mg/dL Urine Glucose (UA) Normal (NORMAL) mg/dL Urine Ketones Negative (NEGATIVE) mg/dL Urine Occult Blood Moderate H (NEGATIVE) Urine Nitrite Negative (NEGATIVE) Urine Bilirubin Negative (NEGATIVE) Urine Urobilinogen Normal (NEGATIVE) mg/dL Ur Leukocyte Esterase Large H (NEGATIVE) Urine RBC 5-10 H (0-5) Urine WBC 75-100 H (0-5) Ur Squamous Epith Cells Occasional (NS,R,O) Urine Bacteria Few H (NS) SARS-CoV-2 RNA (AVA) Negative (NEGATIVE) 11/25/20 11/26/20 11/26/20 Range/Units 19:45 06:25 06:25 WBC 8.2 (3.0-10.3) x10-3/uL RBC 3.19 L (3.60-5.20) x10(6)uL Hgb 8.2 L (11.4-15.5) g/dL Hct 26.6 L (34.2-48.2) % MCV 83.1 (76.7-100.5) fL MCH 25.7 (23.9-33.9) pg MCHC 31.0 L (31.9-34.8) g/dL RDW 21.9 H (12.3-16.5) % Plt Count 284 (151-488) x10(3)uL MPV 8.2 (7.1-12.4) fL Neut % (Auto) 76.1 (30.8-76.2) % Lymph % (Auto) 9.8 L (18.4-52.1) % [place] % (Auto) 10.2 (4.4-15.7) % Eos % (Auto) 2.0 (0.6-8.1) % Baso % (Auto) 1.9 H (0.2-1.5) % Neut # (Auto) 6.3 (1.5-6.3) x10-3/uL Lymph # (Auto) 0.8 L (1.0-4.4) x10-3/uL [place] # (Auto) 0.8 (0.3-1.0) x10-3/uL Eos # (Auto) 0.2 (0.0-0.8) x10-3/uL Baso # (Auto) 0.2 H (0.0-0.1) x10-3/uL Sodium 144 (135-145) mmol/L Potassium 4.5 (3.5-5.3) mmol/L Chloride 106 (100-110) mmol/L Carbon Dioxide 25 (21-32) mmol/L BUN 32 H (7-18) mg/dL Creatinine 3.4 H* (0.55-1.02) mg/dL Est Cr Clr Drug Dosing 10.96 mL/min Estimated GFR (MDRD) 13 L (>60) BUN/Creatinine Ratio 9.4 (9-20) Glucose 88 (80-116) mg/dL Lactic Acid (0.4-2.0) mmol/L Calcium 6.6 L 6.2 L* (8.6-10.2) mg/dL Magnesium (1.8-2.5) mg/dL Total Bilirubin 0.3 (0.1-1.3) mg/dL AST 18 D (5-25) IU/L ALT 19 D (12-36) U/L Alkaline Phosphatase 256 H (56-112) IU/L Troponin I (4.0-60.3) pg/mL Total Protein 6.9 (6.0-8.0) g/dL Albumin 2.5 L (3.2-4.6) g/dL Globulin 4.4 g/dL Albumin/Globulin Ratio 0.6 Urine Color (YELLOW) Urine Appearance (CLEAR) Urine pH (5.0-6.5) Ur Specific [place] (1.010-1.025) Urine Protein (NEGATIVE) mg/dL Urine Glucose (UA) (NORMAL) mg/dL Urine Ketones (NEGATIVE) mg/dL Urine Occult Blood (NEGATIVE) Urine Nitrite (NEGATIVE) Urine Bilirubin (NEGATIVE) Urine Urobilinogen (NEGATIVE) mg/dL Ur Leukocyte Esterase (NEGATIVE) Urine RBC (0-5) Urine WBC (0-5) Ur Squamous Epith Cells (NS,R,O) Urine Bacteria (NS) SARS-CoV-2 RNA (AVA) (NEGATIVE) 11/26/20 Range/Units 06:25 WBC (3.0-10.3) x10-3/uL RBC (3.60-5.20) x10(6)uL Hgb (11.4-15.5) g/dL Hct (34.2-48.2) % MCV (76.7-100.5) fL MCH (23.9-33.9) pg MCHC (31.9-34.8) g/dL RDW (12.3-16.5) % Plt Count (151-488) x10(3)uL MPV (7.1-12.4) fL Neut % (Auto) (30.8-76.2) % Lymph % (Auto) (18.4-52.1) % [place] % (Auto) (4.4-15.7) % Eos % (Auto) (0.6-8.1) % Baso % (Auto) (0.2-1.5) % Neut # (Auto) (1.5-6.3) x10-3/uL Lymph # (Auto) (1.0-4.4) x10-3/uL [place] # (Auto) (0.3-1.0) x10-3/uL Eos # (Auto) (0.0-0.8) x10-3/uL Baso # (Auto) (0.0-0.1) x10-3/uL Sodium (135-145) mmol/L Potassium (3.5-5.3) mmol/L Chloride (100-110) mmol/L Carbon Dioxide (21-32) mmol/L BUN (7-18) mg/dL Creatinine (0.55-1.02) mg/dL Est Cr Clr Drug Dosing mL/min Estimated GFR (MDRD) (>60) BUN/Creatinine Ratio (9-20) Glucose (80-116) mg/dL Lactic Acid (0.4-2.0) mmol/L Calcium (8.6-10.2) mg/dL Magnesium 1.6 L (1.8-2.5) mg/dL Total Bilirubin (0.1-1.3) mg/dL AST (5-25) IU/L ALT (12-36) U/L Alkaline Phosphatase (56-112) IU/L Troponin I (4.0-60.3) pg/mL Total Protein (6.0-8.0) g/dL Albumin (3.2-4.6) g/dL Globulin g/dL Albumin/Globulin Ratio Urine Color (YELLOW) Urine Appearance (CLEAR) Urine pH (5.0-6.5) Ur Specific [place] (1.010-1.025) Urine Protein (NEGATIVE) mg/dL Urine Glucose (UA) (NORMAL) mg/dL Urine Ketones (NEGATIVE) mg/dL Urine Occult Blood (NEGATIVE) Urine Nitrite (NEGATIVE) Urine Bilirubin (NEGATIVE) Urine Urobilinogen (NEGATIVE) mg/dL Ur Leukocyte Esterase (NEGATIVE) Urine RBC (0-5) Urine WBC (0-5) Ur Squamous Epith Cells (NS,R,O) Urine Bacteria (NS) SARS-CoV-2 RNA (AVA) (NEGATIVE) Med Orders - Current: Current Medications Acetaminophen (Acetaminophen 500 Mg Tab) 1,000 mg PO Q6H [facility] Bupropion HCl (Bupropion 150 Mg Tab.Er) 150 mg PO DAILY [facility] Calcitriol (Calcitriol 0.25 Mcg Cap) 0.5 mcg PO DAILY [facility] Cetirizine HCl (Cetirizine 10 Mg Tab) 10 mg PO DAILY [facility] Cholecalciferol (Cholecalciferol (Vitamin D3) 25 Mcg Tab) 25 mcg PO DAILY [facility] Citalopram Hydrobromide (Citalopram 20 Mg Tab) 40 mg PO DAILY [facility] Enoxaparin Sodium (Enoxaparin 30 Mg/0.3 Ml Syringe) 30 mg SUBCUT Q24H [facility] Last Admin: 11/25/20 16:34 Dose: 30 mg Documented by: Fluticasone Propionate (Fluticasone Propionate Nasal [place] 16 Gm Bottle) 0 gm NASBOTH DAILY [facility] Gabapentin (Gabapentin 600 Mg Tab) 600 mg PO BID [facility] Gabapentin (Gabapentin 300 Mg Cap) 900 mg PO BEDTIME [facility] Gabapentin (Gabapentin 600 Mg Tab) 600 mg PO ONETIME ONE Stop: 11/26/20 08:01 Sodium Chloride (Normal Saline) 1,000 mls @ 75 mls/hr IV ASDIRECTED [facility] Last Admin: 11/26/20 03:42 Dose: 75 mls/hr Documented by: Ceftriaxone Sodium 1 gm/ (Sodium Chloride) 50 mls @ 200 mls/hr IV Q24H [facility] Levothyroxine Sodium (Levothyroxine 75 Mcg Tab Own Med) 112.5 mcg PO [place]@ 0600 [facility] Last Admin: 11/26/20 05:39 Dose: 112.5 mcg Documented by: Levothyroxine Sodium (Levothyroxine 75 Mcg Tab Own Med) 75 mcg PO MoTuWeThFrSa@0600 [facility] Losartan Potassium (Losartan 25 Mg Tab) 25 mg PO DAILY [facility] Lutein (Lutein 10 Mg Tab) 20 mg PO DAILY [facility] Metoprolol Succinate (Metoprolol Succinate 50 Mg Tab.Er Own Med) 50 mg PO BEDTIME [facility] Last Admin: 11/25/20 21:21 Dose: 50 mg Documented by: Nifedipine (Nifedipine 30 Mg Tab.Er) 30 mg PO DAILY [facility] Nitroglycerin (Nitroglycerin 0.4 Mg Tab.Sl) 0.4 mg SL Q5M PRN PRN Reason: Chest Pain Pantoprazole Sodium (Pantoprazole 40 Mg Tab.Cr Own Med) 40 mg PO DAILY@0600 [facility] Last Admin: 11/26/20 05:39 Dose: 40 mg Documented by: Potassium Chloride (Potassium Chloride 10 Meq Tab.Er) 10 meq PO DAILY [facility] Simvastatin (Simvastatin 10 Mg Tab Own Med) 10 mg PO BEDTIME [facility] Last Admin: 11/25/20 21:21 Dose: 10 mg Documented by: Sodium Bicarbonate (Sodium Bicarbonate 650 Mg Tab) 650 mg PO BID [facility] Last Admin: 11/25/20 21:23 Dose: Not Given Documented by: Sodium Chloride (Sodium Chloride 0.9% 10 Ml Syringe) 10 ml FLUSH ASDIRECTED PRN PRN Reason: Keep Vein Open Last Admin: 11/25/20 22:30 Dose: 10 ml Documented by: Discontinued Medications Acetaminophen (Acetaminophen 500 Mg Tab) 1,000 mg PO Q6H [facility] Calcium Gluconate (Calcium Gluconate 10% 1 Gm/10 Ml Sdv) 1 gm IVPUSH ONETIME ONE Stop: 11/25/20 15:54 Last Admin: 11/25/20 16:34 Dose: 1 gm Documented by: Calcium Gluconate (Calcium Gluconate 10% 1 Gm/10 Ml Sdv) 1 gm IVPUSH ONETIME ONE Stop: 11/25/20 20:43 Last Admin: 11/25/20 21:17 Dose: 1 gm Documented by: Ceftriaxone Sodium (Ceftriaxone 1 Gm Vial) 1 gm IVPUSH ONETIME ONE Stop: 11/25/20 13:55 Last Admin: 11/25/20 14:35 Dose: 1 gm Documented by: Diphtheria/Tetanus/Acell Pertussis (Diphtheria,Pertussis(Acell),Tetanus Vaccine 0.5 Ml Syringe) 0.5 ml IM .ONCE ONE Stop: 11/25/20 11:30 Last Admin: 11/25/20 12:18 Dose: 0.5 ml Documented by: Gabapentin (Gabapentin 300 Mg Cap) 900 mg PO BEDTIME WANDA Stop: 11/25/20 21:01 Last Admin: 11/25/20 21:20 Dose: 900 mg Documented by: - Exam General: Alert, Oriented, Cooperative Lungs: Clear to Auscultation, Normal Respiratory Effort Cardiovascular: Regular Rate, Regular Rhythm, No Murmurs Extremities: No Pedal Edema - Patient Data Lab Results Last 24 hrs: Laboratory Results - last 24 hr 11/25/20 11/25/20 11/25/20 Range/Units 11:50 11:50 11:50 WBC 7.4 (3.0-10.3) x10-3/uL RBC 3.47 L (3.60-5.20) x10(6)uL Hgb 9.1 L (11.4-15.5) g/dL Hct 28.9 L (34.2-48.2) % MCV 83.3 (76.7-100.5) fL MCH 26.1 (23.9-33.9) pg MCHC 31.3 L (31.9-34.8) g/dL RDW 21.6 H (12.3-16.5) % Plt Count 337 (151-488) x10(3)uL MPV 8.2 (7.1-12.4) fL Neut % (Auto) 79.5 H (30.8-76.2) % Lymph % (Auto) 6.9 L (18.4-52.1) % [place] % (Auto) 9.1 (4.4-15.7) % Eos % (Auto) 2.3 (0.6-8.1) % Baso % (Auto) 2.2 H (0.2-1.5) % Neut # (Auto) 5.9 (1.5-6.3) x10-3/uL Lymph # (Auto) 0.5 L (1.0-4.4) x10-3/uL [place] # (Auto) 0.7 (0.3-1.0) x10-3/uL Eos # (Auto) 0.2 (0.0-0.8) x10-3/uL Baso # (Auto) 0.2 H (0.0-0.1) x10-3/uL Sodium 141 (135-145) mmol/L Potassium 5.0 (3.5-5.3) mmol/L Chloride 103 (100-110) mmol/L Carbon Dioxide 28 (21-32) mmol/L BUN 32 H D (7-18) mg/dL Creatinine 3.8 H* (0.55-1.02) mg/dL Est Cr Clr Drug Dosing 9.81 mL/min Estimated GFR (MDRD) 12 L (>60) BUN/Creatinine Ratio 8.4 L (9-20) Glucose 106 (80-116) mg/dL Lactic Acid (0.4-2.0) mmol/L Calcium 6.0 L* (8.6-10.2) mg/dL Magnesium 1.6 L (1.8-2.5) mg/dL Total Bilirubin 0.3 (0.1-1.3) mg/dL AST 22 (5-25) IU/L ALT 24 D (12-36) U/L Alkaline Phosphatase 286 H (56-112) IU/L Troponin I 4.5 (4.0-60.3) pg/mL Total Protein 7.5 (6.0-8.0) g/dL Albumin 2.8 L (3.2-4.6) g/dL Globulin 4.7 g/dL Albumin/Globulin Ratio 0.6 Urine Color (YELLOW) Urine Appearance (CLEAR) Urine pH (5.0-6.5) Ur Specific [place] (1.010-1.025) Urine Protein (NEGATIVE) mg/dL Urine Glucose (UA) (NORMAL) mg/dL Urine Ketones (NEGATIVE) mg/dL Urine Occult Blood (NEGATIVE) Urine Nitrite (NEGATIVE) Urine Bilirubin (NEGATIVE) Urine Urobilinogen (NEGATIVE) mg/dL Ur Leukocyte Esterase (NEGATIVE) Urine RBC (0-5) Urine WBC (0-5) Ur Squamous Epith Cells (NS,R,O) Urine Bacteria (NS) SARS-CoV-2 RNA (AVA) (NEGATIVE) 11/25/20 11/25/20 11/25/20 Range/Units 11:50 12:45 13:50 WBC (3.0-10.3) x10-3/uL RBC (3.60-5.20) x10(6)uL Hgb (11.4-15.5) g/dL Hct (34.2-48.2) % MCV (76.7-100.5) fL MCH (23.9-33.9) pg MCHC (31.9-34.8) g/dL RDW (12.3-16.5) % Plt Count (151-488) x10(3)uL MPV (7.1-12.4) fL Neut % (Auto) (30.8-76.2) % Lymph % (Auto) (18.4-52.1) % [place] % (Auto) (4.4-15.7) % Eos % (Auto) (0.6-8.1) % Baso % (Auto) (0.2-1.5) % Neut # (Auto) (1.5-6.3) x10-3/uL Lymph # (Auto) (1.0-4.4) x10-3/uL [place] # (Auto) (0.3-1.0) x10-3/uL Eos # (Auto) (0.0-0.8) x10-3/uL Baso # (Auto) (0.0-0.1) x10-3/uL Sodium (135-145) mmol/L Potassium (3.5-5.3) mmol/L Chloride (100-110) mmol/L Carbon Dioxide (21-32) mmol/L BUN (7-18) mg/dL Creatinine (0.55-1.02) mg/dL Est Cr Clr Drug Dosing mL/min Estimated GFR (MDRD) (>60) BUN/Creatinine Ratio (9-20) Glucose (80-116) mg/dL Lactic Acid 0.9 (0.4-2.0) mmol/L Calcium (8.6-10.2) mg/dL Magnesium (1.8-2.5) mg/dL Total Bilirubin (0.1-1.3) mg/dL AST (5-25) IU/L ALT (12-36) U/L Alkaline Phosphatase (56-112) IU/L Troponin I (4.0-60.3) pg/mL Total Protein (6.0-8.0) g/dL Albumin (3.2-4.6) g/dL Globulin g/dL Albumin/Globulin Ratio Urine Color Yellow (YELLOW) Urine Appearance Slightly cloudy (CLEAR) Urine pH 7.0 H (5.0-6.5) Ur Specific [place] 1.005 L (1.010-1.025) Urine Protein Negative (NEGATIVE) mg/dL Urine Glucose (UA) Normal (NORMAL) mg/dL Urine Ketones Negative (NEGATIVE) mg/dL Urine Occult Blood Moderate H (NEGATIVE) Urine Nitrite Negative (NEGATIVE) Urine Bilirubin Negative (NEGATIVE) Urine Urobilinogen Normal (NEGATIVE) mg/dL Ur Leukocyte Esterase Large H (NEGATIVE) Urine RBC 5-10 H (0-5) Urine WBC 75-100 H (0-5) Ur Squamous Epith Cells Occasional (NS,R,O) Urine Bacteria Few H (NS) SARS-CoV-2 RNA (AVA) Negative (NEGATIVE) 11/25/20 11/26/20 11/26/20 Range/Units 19:45 06:25 06:25 WBC 8.2 (3.0-10.3) x10-3/uL RBC 3.19 L (3.60-5.20) x10(6)uL Hgb 8.2 L (11.4-15.5) g/dL Hct 26.6 L (34.2-48.2) % MCV 83.1 (76.7-100.5) fL MCH 25.7 (23.9-33.9) pg MCHC 31.0 L (31.9-34.8) g/dL RDW 21.9 H (12.3-16.5) % Plt Count 284 (151-488) x10(3)uL MPV 8.2 (7.1-12.4) fL Neut % (Auto) 76.1 (30.8-76.2) % Lymph % (Auto) 9.8 L (18.4-52.1) % [place] % (Auto) 10.2 (4.4-15.7) % Eos % (Auto) 2.0 (0.6-8.1) % Baso % (Auto) 1.9 H (0.2-1.5) % Neut # (Auto) 6.3 (1.5-6.3) x10-3/uL Lymph # (Auto) 0.8 L (1.0-4.4) x10-3/uL [place] # (Auto) 0.8 (0.3-1.0) x10-3/uL Eos # (Auto) 0.2 (0.0-0.8) x10-3/uL Baso # (Auto) 0.2 H (0.0-0.1) x10-3/uL Sodium 144 (135-145) mmol/L Potassium 4.5 (3.5-5.3) mmol/L Chloride 106 (100-110) mmol/L Carbon Dioxide 25 (21-32) mmol/L BUN 32 H (7-18) mg/dL Creatinine 3.4 H* (0.55-1.02) mg/dL Est Cr Clr Drug Dosing 10.96 mL/min Estimated GFR (MDRD) 13 L (>60) BUN/Creatinine Ratio 9.4 (9-20) Glucose 88 (80-116) mg/dL Lactic Acid (0.4-2.0) mmol/L Calcium 6.6 L 6.2 L* (8.6-10.2) mg/dL Magnesium (1.8-2.5) mg/dL Total Bilirubin 0.3 (0.1-1.3) mg/dL AST 18 D (5-25) IU/L ALT 19 D (12-36) U/L Alkaline Phosphatase 256 H (56-112) IU/L Troponin I (4.0-60.3) pg/mL Total Protein 6.9 (6.0-8.0) g/dL Albumin 2.5 L (3.2-4.6) g/dL Globulin 4.4 g/dL Albumin/Globulin Ratio 0.6 Urine Color (YELLOW) Urine Appearance (CLEAR) Urine pH (5.0-6.5) Ur Specific [place] (1.010-1.025) Urine Protein (NEGATIVE) mg/dL Urine Glucose (UA) (NORMAL) mg/dL Urine Ketones (NEGATIVE) mg/dL Urine Occult Blood (NEGATIVE) Urine Nitrite (NEGATIVE) Urine Bilirubin (NEGATIVE) Urine Urobilinogen (NEGATIVE) mg/dL Ur Leukocyte Esterase (NEGATIVE) Urine RBC (0-5) Urine WBC (0-5) Ur Squamous Epith Cells (NS,R,O) Urine Bacteria (NS) SARS-CoV-2 RNA (AVA) (NEGATIVE) 11/26/20 Range/Units 06:25 WBC (3.0-10.3) x10-3/uL RBC (3.60-5.20) x10(6)uL Hgb (11.4-15.5) g/dL Hct (34.2-48.2) % MCV (76.7-100.5) fL MCH (23.9-33.9) pg MCHC (31.9-34.8) g/dL RDW (12.3-16.5) % Plt Count (151-488) x10(3)uL MPV (7.1-12.4) fL Neut % (Auto) (30.8-76.2) % Lymph % (Auto) (18.4-52.1) % [place] % (Auto) (4.4-15.7) % Eos % (Auto) (0.6-8.1) % Baso % (Auto) (0.2-1.5) % Neut # (Auto) (1.5-6.3) x10-3/uL Lymph # (Auto) (1.0-4.4) x10-3/uL [place] # (Auto) (0.3-1.0) x10-3/uL Eos # (Auto) (0.0-0.8) x10-3/uL Baso # (Auto) (0.0-0.1) x10-3/uL Sodium (135-145) mmol/L Potassium (3.5-5.3) mmol/L Chloride (100-110) mmol/L Carbon Dioxide (21-32) mmol/L BUN (7-18) mg/dL Creatinine (0.55-1.02) mg/dL Est Cr Clr Drug Dosing mL/min Estimated GFR (MDRD) (>60) BUN/Creatinine Ratio (9-20) Glucose (80-116) mg/dL Lactic Acid (0.4-2.0) mmol/L Calcium (8.6-10.2) mg/dL Magnesium 1.6 L (1.8-2.5) mg/dL Total Bilirubin (0.1-1.3) mg/dL AST (5-25) IU/L ALT (12-36) U/L Alkaline Phosphatase (56-112) IU/L Troponin I (4.0-60.3) pg/mL Total Protein (6.0-8.0) g/dL Albumin (3.2-4.6) g/dL Globulin g/dL Albumin/Globulin Ratio Urine Color (YELLOW) Urine Appearance (CLEAR) Urine pH (5.0-6.5) Ur Specific [place] (1.010-1.025) Urine Protein (NEGATIVE) mg/dL Urine Glucose (UA) (NORMAL) mg/dL Urine Ketones (NEGATIVE) mg/dL Urine Occult Blood (NEGATIVE) Urine Nitrite (NEGATIVE) Urine Bilirubin (NEGATIVE) Urine Urobilinogen (NEGATIVE) mg/dL Ur Leukocyte Esterase (NEGATIVE) Urine RBC (0-5) Urine WBC (0-5) Ur Squamous Epith Cells (NS,R,O) Urine Bacteria (NS) SARS-CoV-2 RNA (AVA) (NEGATIVE) Result Diagrams: 11/26/20 06:25 11/26/20 06:25 Sepsis Event Note - Evaluation Sepsis Screening Result: No Definite Risk - Focused Exam Vital Signs: Vital Signs Temp Pulse Pulse Resp BP BP Pulse Ox 11/26/20 03:40 98.1 F 66 18 149/76 H 95 11/25/20 23:13 98.5 F 67 18 157/77 H 93 L 11/25/20 21:21 66 130/65 11/25/20 20:00 98.4 F 66 18 130/65 95 - Problem List & Annotations (1) Acquired hypocalciuric hypercalcemia SNOMED Code(s): 622799147 Code(s): E83.52 - HYPERCALCEMIA Status: Acute Current Visit: Yes (2) Hypotension SNOMED Code(s): 18966851 Code(s): I95.9 - HYPOTENSION, UNSPECIFIED Status: Acute Current Visit: Yes Qualifiers: Hypotension type: other hypotension type Qualified Code(s): I95.89 - Other hypotension (3) Occipital scalp laceration SNOMED Code(s): 629315952 Code(s): S01.01XA - LACERATION WITHOUT FOREIGN BODY OF SCALP, INITIAL ENCOUNTER Status: Acute Current Visit: Yes Qualifiers: Encounter type: initial encounter Qualified Code(s): S01.01XA - Laceration without foreign body of scalp, initial encounter (4) Syncope SNOMED Code(s): 500740177 Code(s): R55 - SYNCOPE AND COLLAPSE Status: Acute Current Visit: Yes Qualifiers: Syncope type: unspecified Qualified Code(s): R55 - Syncope and collapse (5) UTI (urinary tract infection) SNOMED Code(s): 02289620 Code(s): N39.0 - URINARY TRACT INFECTION, SITE NOT SPECIFIED Status: Acute Current Visit: Yes Qualifiers: Urinary tract infection type: site unspecified Hematuria presence: without hematuria Qualified Code(s): N39.0 - Urinary tract infection, site not specified (6) Acute on chronic renal failure SNOMED Code(s): 950788497 Code(s): N17.9 - ACUTE KIDNEY FAILURE, UNSPECIFIED; N18.9 - CHRONIC KIDNEY DISEASE, UNSPECIFIED Status: Acute Current Visit: No (7) Hypoalbuminemia SNOMED Code(s): 013408786 Code(s): E88.09 - OTH DISORDERS OF PLASMA-PROTEIN METABOLISM, NEC Status: Acute Current Visit: No (8) Palliative care status SNOMED Code(s): 052108063 Code(s): Z51.5 - ENCOUNTER FOR PALLIATIVE CARE Status: Acute Current Visit: No - Problem List Review Problem List Initiated/Reviewed/Updated: Yes - My Orders Last 24 Hours: My Active Orders 11/25/20 15:52 Code Status [Resuscitation Status] Routine 11/25/20 15:54 Up With Assistance [] ASDIRECTED 11/25/20 15:58 Daily Weight [Height and Weight] [] 06 11/25/20 16:00 Enoxaparin [Lovenox] 30 mg SUBCUT Q24H 11/25/20 Dinner Regular Diet [DIET] 11/25/20 17:43 Nitroglycerin [Nitrostat] 0.4 mg SL Q5M PRN 11/25/20 21:00 Acetaminophen [Tylenol Extra Strength] 1,000 mg PO Q6H Gabapentin [Neurontin] 900 mg PO BEDTIME Metoprolol Succinate [Toprol XL] 50 mg PO BEDTIME Simvastatin [Zocor] 10 mg PO BEDTIME Sodium Bicarbonate 650 mg PO BID 11/26/20 06:00 Levothyroxine 112.5 mcg PO Landin@0600 Pantoprazole [ProTONIX] 40 mg PO DAILY@0600 11/26/20 07:20 PTH, INTACT Routine VITAMIN D, 25-HYDROXY Routine 11/26/20 08:00 Gabapentin [Neurontin] 600 mg PO ONETIME ONE 11/26/20 09:00 Cetirizine [ZyrTEC] 10 mg PO DAILY Cholecalciferol (Vitamin D3) [Vitamin D3] 25 mcg PO DAILY Citalopram [Celexa] 40 mg PO DAILY Fluticasone Propionate [Flonase] See Dose Instructions NASBOTH DAILY Gabapentin [Neurontin] 600 mg PO BID Losartan [Cozaar] 25 mg PO DAILY Lutein 20 mg PO DAILY NIFEdipine [Procardia XL] 30 mg PO DAILY Potassium Chloride [Klor-Con 10] 10 meq PO DAILY buPROPion [Wellbutrin XL] 150 mg PO DAILY calcitrioL [Rocaltrol] 0.5 mcg PO DAILY 11/26/20 16:00 cefTRIAXone [Rocephin] 1 gm Sodium Chloride 0.9% [Normal Saline] 50 ml IV Q24H 11/27/20 06:00 Levothyroxine 75 mcg PO MoTuWeThFrSa@0600 - Plan Plan:: 1. Calcium 1 up a little bit with some IV calcium. Corrected calcium with albumin of 7.4. This is adequate she's asymptomatic. We'll discharge to home. 2. I'll have her weigh herself daily and use her furosemide if she gains 5 pounds until she sees her primary care doctor Dr. Domingo. She has appointment on Friday which is 2 days. 3. Decrease Neurontin to 3 mg at at bedtime per pharmacy recommendations due to creatinine. 5. Staple removal in one week.
--- NOTE | 2020-11-26 07:56 | PCM.DCSUM1 ---
Discharge Summary - Hospital Course Free Text/Narrative:: Hospital course-patient was placed in the hospital on Rocephin 1 g every 24 hours and IV fluids. Her laceration was repaired in the ER. Her calcium was low so I gave her a gram of IV calcium 2. Is slightly was increased the morning. I was not able to get an ionized calcium immediately because it was a send out. Calculated her calcium with albumin of 7.4 which is adequate at this time. Patient's blood pressure was normal to slightly increased. Her hydration improved and her creatinine came down mildly. I felt that she could go home and most likely she was over diuresed. I talked to her about her gabapentin. The pharmacist felt because her creatinine clearance she should only be a 300 mg total for the day's were placed her on this dose at at bedtime. Her primary doctor can change it if he wishes. I also use the erosive by 20 mg daily when necessary for a weight gain of 5 pounds until she sees her primary doctor. She is a little anemic most likely from her chronic kidney disease. 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 I discussed this with her and she will have Dr. Domingo review this. Brief History: This is a 75-year-old female patient comes at the ER because her systolic blood pressure was in the 80s and she fell over and hit her head and sustained a laceration. She was found to be dehydrated with her acute upon chronic renal failure and was hydrated and blood pressure was better. It was felt that she should be admitted overnight. She had positive urine for UTI. She denies dysuria, pyuria, hematuria. She says she's had a little bit of shaking and weakness. She denies any chest pain, palpitations, shortness breath, wheezing or cough. Patient was placed in the hospital in [place] for restrictive deficit. She lots of fluids per she got out felt good with a day or 2 later she was short of breath or leg swelling and came here to the hospital and sent to [place] and was diuresed. She just got out of the hospital 3-4 days ago and now she is dehydrated. She says she normally takes Lasix 3 times a week in house on a daily. She does not know the dose of which she is taking now or before. Diagnosis: Stroke: No - Discharge Data Discharge Date: 11/26/20 Discharge Disposition: Home, Self-Care 01 Condition: Good - Referral to Home Health Primary Care Physician: Scot Domingo MD - Discharge Diagnosis/Problem(s) (1) Acquired hypocalciuric hypercalcemia SNOMED Code(s): 616371610 ICD Code: E83.52 - HYPERCALCEMIA Status: Acute Current Visit: Yes (2) Hypotension SNOMED Code(s): 03036968 ICD Code: I95.9 - HYPOTENSION, UNSPECIFIED Status: Acute Current Visit: Yes Qualifiers: Hypotension type: other hypotension type Qualified Code(s): I95.89 - Other hypotension (3) Occipital scalp laceration SNOMED Code(s): 282987605 ICD Code: S01.01XA - LACERATION WITHOUT FOREIGN BODY OF SCALP, INITIAL EN COUNTER Status: Acute Current Visit: Yes Qualifiers: Encounter type: initial encounter Qualified Code(s): S01.01XA - Laceration without foreign body of scalp, initial encounter (4) Syncope SNOMED Code(s): 199571230 ICD Code: R55 - SYNCOPE AND COLLAPSE Status: Acute Current Visit: Yes Qualifiers: Syncope type: unspecified Qualified Code(s): R55 - Syncope and collapse (5) UTI (urinary tract infection) SNOMED Code(s): 57370113 ICD Code: N39.0 - URINARY TRACT INFECTION, SITE NOT SPECIFIED Status: Acute Current Visit: Yes Qualifiers: Urinary tract infection type: site unspecified Hematuria presence: without hematuria Qualified Code(s): N39.0 - Urinary tract infection, site not specified (6) Acute on chronic renal failure SNOMED Code(s): 140702709 ICD Code: N17.9 - ACUTE KIDNEY FAILURE, UNSPECIFIED; N18.9 - CHRONIC KIDNEY DISEASE, UNSPECIFIED Status: Acute Current Visit: No (7) Hypoalbuminemia SNOMED Code(s): 439107061 ICD Code: E88.09 - OTH DISORDERS OF PLASMA-PROTEIN METABOLISM, NEC Status: Acute Current Visit: No (8) Palliative care status SNOMED Code(s): 206385652 ICD Code: Z51.5 - ENCOUNTER FOR PALLIATIVE CARE Status: Acute Current Visit: No - Patient Instructions Diet: Low Sodium Activity: As Tolerated Driving: May Drive Today Showering/Bathing: May Shower Other/Special Instructions: 1. She has appointment with Dr. Domingo on Friday of this week which is 2 days. She is to keep the appointment. 2. Daily weights first thing in the morning. She is to use her torsemide daily when necessary for a weight gain of 5 pounds. 3. I change her gabapentin 300 mg at at bedtime. - Discharge Plan Home Medications: Home Meds Citalopram [Citalopram HBr] 40 mg PO DAILY 09/06/16 [History] Fluticasone Propionate [Flonase] 2 spray NASBOTH DAILY PRN 09/06/16 [History] Metoprolol Succinate [Toprol XL] 50 mg PO DAILY 09/06/16 [History] Levothyroxine 112.5 mcg PO LANDIN 09/09/16 [History] Acetaminophen [Masophen] 1,000 mg PO Q6H PRN MDD 4000 MG 11/04/17 [History] Levothyroxine 75 mcg PO MOTUWETHFRSA 11/04/17 [History] Nitroglycerin [Nitrostat] 0.4 mg SL ASDIRECTED 11/04/17 [History] Potassium Chloride [Klor-Con 10] 10 meq PO DAILY 11/04/17 [History] Losartan [Cozaar] 25 mg PO DAILY 06/26/20 [History] Pantoprazole Sodium [Protonix] 40 mg PO ACBREAKFAST 06/26/20 [History] Simvastatin [Zocor] 10 mg PO BEDTIME 06/26/20 [History] Calcium Carbonate [Oyster Shell Calcium] 1 tab PO TID 11/25/20 [History] Cetirizine [ZyrTEC] 10 mg PO DAILY 11/25/20 [History] Cholecalciferol (Vitamin D3) [Vitamin D3] 1 cap PO DAILY 11/25/20 [History] Cranberry Conc/Ascorbic Acid [Cranberry Plus Vitamin C Sftgl] 2 cap PO DAILY 11/25/20 [History] L. Acidophilus/L.bulgaricus [Lactobacillus 1 Million Cfu Tb] 4 tab PO BID 11/25/20 [History] Lutein [Natural Lutein] 1 cap PO DAILY 11/25/20 [History] NIFEdipine [Procardia XL] 30 mg PO DAILY 11/25/20 [History] Sodium Bicarbonate 650 mg PO BID 11/25/20 [History] buPROPion HCL [Bupropion HCl Sr] 150 mg PO DAILY 11/25/20 [History] calcitrioL [Rocaltrol] 0.5 mcg PO DAILY 11/25/20 [History] Gabapentin [Neurontin] 300 mg PO BEDTIME #0 11/26/20 [Rx] Losartan [Cozaar] 25 mg PO DAILY tablet 11/26/20 [Rx] Torsemide [Demadex] 20 mg PO DAILY PRN #0 11/26/20 [Rx] Forms: ED Department Discharge Referrals: Scot Domingo MD [Primary Care Provider] - - Discharge Summary/Plan Comment DC Time >30 min.: No - Patient Data Vitals - Most Recent: Last Vital Signs Temp 98.1 F 11/26/20 03:40 Pulse 66 11/26/20 03:40 Resp 18 11/26/20 03:40 BP 149/76 H 11/26/20 03:40 Pulse Ox 95 11/26/20 03:40 Orthostatic Blood Pressure [ 117/52 Standing] Orthostatic Blood Pressure [ 124/55 Sitting] Orthostatic Blood Pressure [ 116/52 Supine] Weight - Most Recent: 168 lb I&O - Last 24 hours: Intake & Output 11/25/20 11/26/20 11/26/20 22:59 06:59 14:59 Intake Total 462 591 Output Total 300 Balance 162 591 Lab Results - Last 24 hrs: Laboratory Results - last 24 hr 11/25/20 11/25/20 11/25/20 Range/Units 11:50 11:50 11:50 WBC 7.4 (3.0-10.3) x10-3/uL RBC 3.47 L (3.60-5.20) x10(6)uL Hgb 9.1 L (11.4-15.5) g/dL Hct 28.9 L (34.2-48.2) % MCV 83.3 (76.7-100.5) fL MCH 26.1 (23.9-33.9) pg MCHC 31.3 L (31.9-34.8) g/dL RDW 21.6 H (12.3-16.5) % Plt Count 337 (151-488) x10(3)uL MPV 8.2 (7.1-12.4) fL Neut % (Auto) 79.5 H (30.8-76.2) % Lymph % (Auto) 6.9 L (18.4-52.1) % [place] % (Auto) 9.1 (4.4-15.7) % Eos % (Auto) 2.3 (0.6-8.1) % Baso % (Auto) 2.2 H (0.2-1.5) % Neut # (Auto) 5.9 (1.5-6.3) x10-3/uL Lymph # (Auto) 0.5 L (1.0-4.4) x10-3/uL [place] # (Auto) 0.7 (0.3-1.0) x10-3/uL Eos # (Auto) 0.2 (0.0-0.8) x10-3/uL Baso # (Auto) 0.2 H (0.0-0.1) x10-3/uL Sodium 141 (135-145) mmol/L Potassium 5.0 (3.5-5.3) mmol/L Chloride 103 (100-110) mmol/L Carbon Dioxide 28 (21-32) mmol/L BUN 32 H D (7-18) mg/dL Creatinine 3.8 H* (0.55-1.02) mg/dL Est Cr Clr Drug Dosing 9.81 mL/min Estimated GFR (MDRD) 12 L (>60) BUN/Creatinine Ratio 8.4 L (9-20) Glucose 106 (80-116) mg/dL Lactic Acid (0.4-2.0) mmol/L Calcium 6.0 L* (8.6-10.2) mg/dL Magnesium 1.6 L (1.8-2.5) mg/dL Total Bilirubin 0.3 (0.1-1.3) mg/dL AST 22 (5-25) IU/L ALT 24 D (12-36) U/L Alkaline Phosphatase 286 H (56-112) IU/L Troponin I 4.5 (4.0-60.3) pg/mL Total Protein 7.5 (6.0-8.0) g/dL Albumin 2.8 L (3.2-4.6) g/dL Globulin 4.7 g/dL Albumin/Globulin Ratio 0.6 Urine Color (YELLOW) Urine Appearance (CLEAR) Urine pH (5.0-6.5) Ur Specific [place] (1.010-1.025) Urine Protein (NEGATIVE) mg/dL Urine Glucose (UA) (NORMAL) mg/dL Urine Ketones (NEGATIVE) mg/dL Urine Occult Blood (NEGATIVE) Urine Nitrite (NEGATIVE) Urine Bilirubin (NEGATIVE) Urine Urobilinogen (NEGATIVE) mg/dL Ur Leukocyte Esterase (NEGATIVE) Urine RBC (0-5) Urine WBC (0-5) Ur Squamous Epith Cells (NS,R,O) Urine Bacteria (NS) SARS-CoV-2 RNA (AVA) (NEGATIVE) 11/25/20 11/25/20 11/25/20 Range/Units 11:50 12:45 13:50 WBC (3.0-10.3) x10-3/uL RBC (3.60-5.20) x10(6)uL Hgb (11.4-15.5) g/dL Hct (34.2-48.2) % MCV (76.7-100.5) fL MCH (23.9-33.9) pg MCHC (31.9-34.8) g/dL RDW (12.3-16.5) % Plt Count (151-488) x10(3)uL MPV (7.1-12.4) fL Neut % (Auto) (30.8-76.2) % Lymph % (Auto) (18.4-52.1) % [place] % (Auto) (4.4-15.7) % Eos % (Auto) (0.6-8.1) % Baso % (Auto) (0.2-1.5) % Neut # (Auto) (1.5-6.3) x10-3/uL Lymph # (Auto) (1.0-4.4) x10-3/uL [place] # (Auto) (0.3-1.0) x10-3/uL Eos # (Auto) (0.0-0.8) x10-3/uL Baso # (Auto) (0.0-0.1) x10-3/uL Sodium (135-145) mmol/L Potassium (3.5-5.3) mmol/L Chloride (100-110) mmol/L Carbon Dioxide (21-32) mmol/L BUN (7-18) mg/dL Creatinine (0.55-1.02) mg/dL Est Cr Clr Drug Dosing mL/min Estimated GFR (MDRD) (>60) BUN/Creatinine Ratio (9-20) Glucose (80-116) mg/dL Lactic Acid 0.9 (0.4-2.0) mmol/L Calcium (8.6-10.2) mg/dL Magnesium (1.8-2.5) mg/dL Total Bilirubin (0.1-1.3) mg/dL AST (5-25) IU/L ALT (12-36) U/L Alkaline Phosphatase (56-112) IU/L Troponin I (4.0-60.3) pg/mL Total Protein (6.0-8.0) g/dL Albumin (3.2-4.6) g/dL Globulin g/dL Albumin/Globulin Ratio Urine Color Yellow (YELLOW) Urine Appearance Slightly cloudy (CLEAR) Urine pH 7.0 H (5.0-6.5) Ur Specific [place] 1.005 L (1.010-1.025) Urine Protein Negative (NEGATIVE) mg/dL Urine Glucose (UA) Normal (NORMAL) mg/dL Urine Ketones Negative (NEGATIVE) mg/dL Urine Occult Blood Moderate H (NEGATIVE) Urine Nitrite Negative (NEGATIVE) Urine Bilirubin Negative (NEGATIVE) Urine Urobilinogen Normal (NEGATIVE) mg/dL Ur Leukocyte Esterase Large H (NEGATIVE) Urine RBC 5-10 H (0-5) Urine WBC 75-100 H (0-5) Ur Squamous Epith Cells Occasional (NS,R,O) Urine Bacteria Few H (NS) SARS-CoV-2 RNA (AVA) Negative (NEGATIVE) 11/25/20 11/26/20 11/26/20 Range/Units 19:45 06:25 06:25 WBC 8.2 (3.0-10.3) x10-3/uL RBC 3.19 L (3.60-5.20) x10(6)uL Hgb 8.2 L (11.4-15.5) g/dL Hct 26.6 L (34.2-48.2) % MCV 83.1 (76.7-100.5) fL MCH 25.7 (23.9-33.9) pg MCHC 31.0 L (31.9-34.8) g/dL RDW 21.9 H (12.3-16.5) % Plt Count 284 (151-488) x10(3)uL MPV 8.2 (7.1-12.4) fL Neut % (Auto) 76.1 (30.8-76.2) % Lymph % (Auto) 9.8 L (18.4-52.1) % [place] % (Auto) 10.2 (4.4-15.7) % Eos % (Auto) 2.0 (0.6-8.1) % Baso % (Auto) 1.9 H (0.2-1.5) % Neut # (Auto) 6.3 (1.5-6.3) x10-3/uL Lymph # (Auto) 0.8 L (1.0-4.4) x10-3/uL [place] # (Auto) 0.8 (0.3-1.0) x10-3/uL Eos # (Auto) 0.2 (0.0-0.8) x10-3/uL Baso # (Auto) 0.2 H (0.0-0.1) x10-3/uL Sodium 144 (135-145) mmol/L Potassium 4.5 (3.5-5.3) mmol/L Chloride 106 (100-110) mmol/L Carbon Dioxide 25 (21-32) mmol/L BUN 32 H (7-18) mg/dL Creatinine 3.4 H* (0.55-1.02) mg/dL Est Cr Clr Drug Dosing 10.96 mL/min Estimated GFR (MDRD) 13 L (>60) BUN/Creatinine Ratio 9.4 (9-20) Glucose 88 (80-116) mg/dL Lactic Acid (0.4-2.0) mmol/L Calcium 6.6 L 6.2 L* (8.6-10.2) mg/dL Magnesium (1.8-2.5) mg/dL Total Bilirubin 0.3 (0.1-1.3) mg/dL AST 18 D (5-25) IU/L ALT 19 D (12-36) U/L Alkaline Phosphatase 256 H (56-112) IU/L Troponin I (4.0-60.3) pg/mL Total Protein 6.9 (6.0-8.0) g/dL Albumin 2.5 L (3.2-4.6) g/dL Globulin 4.4 g/dL Albumin/Globulin Ratio 0.6 Urine Color (YELLOW) Urine Appearance (CLEAR) Urine pH (5.0-6.5) Ur Specific [place] (1.010-1.025) Urine Protein (NEGATIVE) mg/dL Urine Glucose (UA) (NORMAL) mg/dL Urine Ketones (NEGATIVE) mg/dL Urine Occult Blood (NEGATIVE) Urine Nitrite (NEGATIVE) Urine Bilirubin (NEGATIVE) Urine Urobilinogen (NEGATIVE) mg/dL Ur Leukocyte Esterase (NEGATIVE) Urine RBC (0-5) Urine WBC (0-5) Ur Squamous Epith Cells (NS,R,O) Urine Bacteria (NS) SARS-CoV-2 RNA (AVA) (NEGATIVE) 11/26/20 Range/Units 06:25 WBC (3.0-10.3) x10-3/uL RBC (3.60-5.20) x10(6)uL Hgb (11.4-15.5) g/dL Hct (34.2-48.2) % MCV (76.7-100.5) fL MCH (23.9-33.9) pg MCHC (31.9-34.8) g/dL RDW (12.3-16.5) % Plt Count (151-488) x10(3)uL MPV (7.1-12.4) fL Neut % (Auto) (30.8-76.2) % Lymph % (Auto) (18.4-52.1) % [place] % (Auto) (4.4-15.7) % Eos % (Auto) (0.6-8.1) % Baso % (Auto) (0.2-1.5) % Neut # (Auto) (1.5-6.3) x10-3/uL Lymph # (Auto) (1.0-4.4) x10-3/uL [place] # (Auto) (0.3-1.0) x10-3/uL Eos # (Auto) (0.0-0.8) x10-3/uL Baso # (Auto) (0.0-0.1) x10-3/uL Sodium (135-145) mmol/L Potassium (3.5-5.3) mmol/L Chloride (100-110) mmol/L Carbon Dioxide (21-32) mmol/L BUN (7-18) mg/dL Creatinine (0.55-1.02) mg/dL Est Cr Clr Drug Dosing mL/min Estimated GFR (MDRD) (>60) BUN/Creatinine Ratio (9-20) Glucose (80-116) mg/dL Lactic Acid (0.4-2.0) mmol/L Calcium (8.6-10.2) mg/dL Magnesium 1.6 L (1.8-2.5) mg/dL Total Bilirubin (0.1-1.3) mg/dL AST (5-25) IU/L ALT (12-36) U/L Alkaline Phosphatase (56-112) IU/L Troponin I (4.0-60.3) pg/mL Total Protein (6.0-8.0) g/dL Albumin (3.2-4.6) g/dL Globulin g/dL Albumin/Globulin Ratio Urine Color (YELLOW) Urine Appearance (CLEAR) Urine pH (5.0-6.5) Ur Specific [place] (1.010-1.025) Urine Protein (NEGATIVE) mg/dL Urine Glucose (UA) (NORMAL) mg/dL Urine Ketones (NEGATIVE) mg/dL Urine Occult Blood (NEGATIVE) Urine Nitrite (NEGATIVE) Urine Bilirubin (NEGATIVE) Urine Urobilinogen (NEGATIVE) mg/dL Ur Leukocyte Esterase (NEGATIVE) Urine RBC (0-5) Urine WBC (0-5) Ur Squamous Epith Cells (NS,R,O) Urine Bacteria (NS) SARS-CoV-2 RNA (AVA) (NEGATIVE) Med Orders - Current: Current Medications Acetaminophen (Acetaminophen 500 Mg Tab) 1,000 mg PO Q6H [facility] Bupropion HCl (Bupropion 150 Mg Tab.Er) 150 mg PO DAILY [facility] Calcitriol (Calcitriol 0.25 Mcg Cap) 0.5 mcg PO DAILY [facility] Cetirizine HCl (Cetirizine 10 Mg Tab) 10 mg PO DAILY [facility] Cholecalciferol (Cholecalciferol (Vitamin D3) 25 Mcg Tab) 25 mcg PO DAILY [facility] Citalopram Hydrobromide (Citalopram 20 Mg Tab) 40 mg PO DAILY [facility] Enoxaparin Sodium (Enoxaparin 30 Mg/0.3 Ml Syringe) 30 mg SUBCUT Q24H [facility] Last Admin: 11/25/20 16:34 Dose: 30 mg Documented by: Fluticasone Propionate (Fluticasone Propionate Nasal [place] 16 Gm Bottle) 0 gm NASBOTH DAILY [facility] Gabapentin (Gabapentin 600 Mg Tab) 600 mg PO BID [facility] Gabapentin (Gabapentin 300 Mg Cap) 900 mg PO BEDTIME [facility] Gabapentin (Gabapentin 600 Mg Tab) 600 mg PO ONETIME ONE Stop: 11/26/20 08:01 Sodium Chloride (Normal Saline) 1,000 mls @ 75 mls/hr IV ASDIRECTED [facility] Last Admin: 11/26/20 03:42 Dose: 75 mls/hr Documented by: Ceftriaxone Sodium 1 gm/ (Sodium Chloride) 50 mls @ 200 mls/hr IV Q24H [facility] Levothyroxine Sodium (Levothyroxine 75 Mcg Tab Own Med) 112.5 mcg PO Landin@0600 [facility] Last Admin: 11/26/20 05:39 Dose: 112.5 mcg Documented by: Levothyroxine Sodium (Levothyroxine 75 Mcg Tab Own Med) 75 mcg PO MoTuWeThFrSa@0600 [facility] Losartan Potassium (Losartan 25 Mg Tab) 25 mg PO DAILY [facility] Lutein (Lutein 10 Mg Tab) 20 mg PO DAILY [facility] Metoprolol Succinate (Metoprolol Succinate 50 Mg Tab.Er Own Med) 50 mg PO BEDTIME [facility] Last Admin: 11/25/20 21:21 Dose: 50 mg Documented by: Nifedipine (Nifedipine 30 Mg Tab.Er) 30 mg PO DAILY [facility] Nitroglycerin (Nitroglycerin 0.4 Mg Tab.Sl) 0.4 mg SL Q5M PRN PRN Reason: Chest Pain Pantoprazole Sodium (Pantoprazole 40 Mg Tab.Cr Own Med) 40 mg PO DAILY@0600 [facility] Last Admin: 11/26/20 05:39 Dose: 40 mg Documented by: Potassium Chloride (Potassium Chloride 10 Meq Tab.Er) 10 meq PO DAILY [facility] Simvastatin (Simvastatin 10 Mg Tab Own Med) 10 mg PO BEDTIME [facility] Last Admin: 11/25/20 21:21 Dose: 10 mg Documented by: Sodium Bicarbonate (Sodium Bicarbonate 650 Mg Tab) 650 mg PO BID [facility] Last Admin: 11/25/20 21:23 Dose: Not Given Documented by: Sodium Chloride (Sodium Chloride 0.9% 10 Ml Syringe) 10 ml FLUSH ASDIRECTED PRN PRN Reason: Keep Vein Open Last Admin: 11/25/20 22:30 Dose: 10 ml Documented by: Discontinued Medications Acetaminophen (Acetaminophen 500 Mg Tab) 1,000 mg PO Q6H [facility] Calcium Gluconate (Calcium Gluconate 10% 1 Gm/10 Ml Sdv) 1 gm IVPUSH ONETIME ONE Stop: 11/25/20 15:54 Last Admin: 11/25/20 16:34 Dose: 1 gm Documented by: Calcium Gluconate (Calcium Gluconate 10% 1 Gm/10 Ml Sdv) 1 gm IVPUSH ONETIME ONE Stop: 11/25/20 20:43 Last Admin: 11/25/20 21:17 Dose: 1 gm Documented by: Ceftriaxone Sodium (Ceftriaxone 1 Gm Vial) 1 gm IVPUSH ONETIME ONE Stop: 11/25/20 13:55 Last Admin: 11/25/20 14:35 Dose: 1 gm Documented by: Diphtheria/Tetanus/Acell Pertussis (Diphtheria,Pertussis(Acell),Tetanus Vaccine 0.5 Ml Syringe) 0.5 ml IM .ONCE ONE Stop: 11/25/20 11:30 Last Admin: 11/25/20 12:18 Dose: 0.5 ml Documented by: Gabapentin (Gabapentin 300 Mg Cap) 900 mg PO BEDTIME [facility] Stop: 11/25/20 21:01 Last Admin: 11/25/20 21:20 Dose: 900 mg Documented by:
[2020-11-26] MEDS ORDERED: Gabapentin 600 MG Tab PO ONE (08:00)
[2020-11-26] MEDS ORDERED: cefTRIAXone 1 GM in Sodium Chloride 0.9% 50 ML IV ONE (08:35)
[2020-11-26] MEDS ORDERED: NIFEdipine 30 MG Tab.ER PO SCH (09:00)
[2020-11-26] MEDS ORDERED: Citalopram 20 MG Tab PO SCH (09:00)
[2020-11-26] MEDS ORDERED: Cetirizine 10 MG Tab PO SCH (09:00)
[2020-11-26] MEDS ORDERED: Cholecalciferol (Vitamin D3) 25 MCG Tab PO SCH (09:00)
[2020-11-26] MEDS ORDERED: Calcitriol 0.25 MCG Cap PO SCH (09:00)
[2020-11-26] MEDS ORDERED: Losartan 25 MG Tab PO SCH (09:00)
[2020-11-26] MEDS ORDERED: Potassium Chloride 10 MEQ Tab.ER PO SCH (09:00)
[2020-11-26] MEDS ORDERED: buPROPion 150 MG Tab.ER PO SCH (09:00)
[2020-11-26] MEDS ORDERED: Fluticasone Propionate Nasal Spray 16 GM Bottle NASBOTH SCH (09:00)
[2020-11-26] MEDS ORDERED: Gabapentin 600 MG Tab PO SCH (09:00)
[2020-11-26 11:26] VITALS: BP 144/76; PULSE 64
[2020-11-26] MEDS ORDERED: cefTRIAXone 1 GM in Sodium Chloride 0.9% 50 ML IV SCH (16:00)
[2020-11-27] MEDS ORDERED: Levothyroxine 75 MCG Tab **OWN MED PO SCH (06:00)
== END 2020-11-26 10:40 | disposition home or self-care (01) ==
LOC: FB.ED 10:57 → FB.MS 14:37
PROVIDERS: ADMIT Family Medicine; ATTEND Family Medicine
DX: S01.01XA Laceration without foreign body of scalp, initial encounter (principal); I12.9 Hypertensive chronic kidney disease with stage 1 through stage 4 chronic kidney disease, or unspecified chronic kidney disease; E86.0 Dehydration; N18.9 Chronic kidney disease, unspecified; N39.0 Urinary tract infection, site not specified; E78.00 Pure hypercholesterolemia, unspecified; E03.9 Hypothyroidism, unspecified; E66.9 Obesity, unspecified; E83.52 Hypercalcemia; I95.89 Other hypotension; N17.9 Acute kidney failure, unspecified; E88.09 Other disorders of plasma-protein metabolism, not elsewhere classified; Z20.822 Contact with and (suspected) exposure to COVID-19; Z88.8 Allergy status to other drugs, medicaments and biological substances; Z88.5 Allergy status to narcotic agent; Z88.1 Allergy status to other antibiotic agents; Z79.899 Other long term (current) drug therapy; Z79.890 Hormone replacement therapy; Z90.49 Acquired absence of other specified parts of digestive tract; Z98.890 Other specified postprocedural states; Z68.30 Body mass index [BMI] 30.0-30.9, adult
CPT/HCPCS: 12002; 36415; 70450; 72125; 80053; 81001; 82310; 83605; 83735; 84484; 85025; 87040; 87086; 87088; 87186; 90471; 90715; 93005; 96372; 96374; 96375; 96376; 99285-25; A9270-GY; G0378; J0610; J0696; J1650; J7030; U0002

== ENCOUNTER 2021-09-14 15:51 | Inpatient (IN) | payer MEDICARE, BC ==
[2021-09-14] MEDS ORDERED: Sodium Chloride 0.9% 10 ML Syringe FLUSH PRN (16:03)
[2021-09-14] MEDS: Sodium Chloride 0.9% 1,000 ML IV SCH ×2 (16:22→23:24)
[2021-09-14] MEDS ORDERED: Ondansetron 4 MG/2 ML SDV IV PRN (17:40)
[2021-09-14] MEDS ORDERED: Fluticasone Propionate Nasal Spray 16 GM Bottle NASBOTH PRN (17:46)
[2021-09-14] MEDS ORDERED: HYDROmorphone 2 MG/ML SDV IVPUSH PRN (17:48)
[2021-09-14] MEDS ORDERED: cloNIDine 0.1 MG/Day Transdermal Patch TRDERM SCH (18:00)
[2021-09-14] MEDS ORDERED: Metoclopramide 10 MG/2 ML SDV IVPUSH PRN (21:28)
[2021-09-15] MEDS: Sodium Chloride 0.9% 1,000 ML IV SCH (06:02)
[2021-09-15] MEDS ORDERED: Furosemide 40 MG/4 ML VIAL IVPUSH SCH (09:00)
[2021-09-15] MEDS ORDERED: Aluminum Hydroxide/Magnesium Hydroxide Susp 30 ML Cup PO PRN (09:24)
[2021-09-15] MEDS: Metoprolol Succinate 50 MG Tab.ER PO SCH (09:49)
[2021-09-15] MEDS: NIFEdipine 30 MG Tab.ER PO SCH (09:58)
[2021-09-15] MEDS: Torsemide 20 MG Tab PO SCH (10:55)
[2021-09-15] MEDS: Losartan 25 MG Tab PO SCH (10:56)
[2021-09-15] MEDS ORDERED: Gabapentin 300 MG Cap PO SCH (21:00)
[2021-09-15] MEDS ORDERED: Simvastatin 10 MG Tab PO SCH (21:00)
[2021-09-15] MEDS: Sodium Bicarbonate 650 MG Tab PO SCH (21:41)
[2021-09-15] MEDS: buPROPion 150 MG Tab.SR PO SCH (21:42)
[2021-09-16] MEDS ORDERED: Levothyroxine 112 MCG Tab ONE (06:33)
[2021-09-16] MEDS ORDERED: Pantoprazole 40 MG Tab.CR PO SCH (07:30)
[2021-09-16] MEDS ORDERED: Levothyroxine 75 MCG Tab PO SCH (07:30)
[2021-09-16] MEDS: buPROPion 150 MG Tab.SR PO SCH (08:33)
[2021-09-16] MEDS: Torsemide 20 MG Tab PO SCH (08:34)
[2021-09-16] MEDS: Losartan 25 MG Tab PO SCH (08:34)
[2021-09-16] MEDS ORDERED: Torsemide 20 MG Tab PO SCH (09:00)
[2021-09-16] MEDS ORDERED: Citalopram 20 MG Tab PO SCH (09:00)
[2021-09-16] MEDS: Metoprolol Succinate 50 MG Tab.ER PO SCH (09:12)
[2021-09-16 09:15] VITALS: BP 129/67; PULSE 73
[2021-09-16] MEDS: NIFEdipine 30 MG Tab.ER PO SCH (09:16)
[2021-09-16] MEDS: Sodium Bicarbonate 650 MG Tab PO SCH (09:19)
== END 2021-09-16 13:10 | disposition home or self-care (01) | DRG 389 ==
LOC: FB.ED 15:51 → FB.MS 17:43
PROVIDERS: ADMIT Family Medicine; ATTEND Family Medicine
DX: K56.609 Unspecified intestinal obstruction, unspecified as to partial versus complete obstruction (principal); N18.4 Chronic kidney disease, stage 4 (severe); I13.0 Hypertensive heart and chronic kidney disease with heart failure and stage 1 through stage 4 chronic kidney disease, or unspecified chronic kidney disease; I50.9 Heart failure, unspecified; E78.2 Mixed hyperlipidemia; E03.9 Hypothyroidism, unspecified; E86.0 Dehydration; H54.7 Unspecified visual loss; E78.00 Pure hypercholesterolemia, unspecified; Z20.822 Contact with and (suspected) exposure to COVID-19; Z88.1 Allergy status to other antibiotic agents; K21.9 Gastro-esophageal reflux disease without esophagitis; K57.90 Diverticulosis of intestine, part unspecified, without perforation or abscess without bleeding; F41.9 Anxiety disorder, unspecified; Z79.899 Other long term (current) drug therapy; F32.A Depression, unspecified; D64.9 Anemia, unspecified; E66.9 Obesity, unspecified; M19.90 Unspecified osteoarthritis, unspecified site; Z88.0 Allergy status to penicillin; Z88.5 Allergy status to narcotic agent; Z88.8 Allergy status to other drugs, medicaments and biological substances; Z79.890 Hormone replacement therapy; Z79.01 Long term (current) use of anticoagulants; Z90.49 Acquired absence of other specified parts of digestive tract; Z90.710 Acquired absence of both cervix and uterus; Z98.890 Other specified postprocedural states; Z87.442 Personal history of urinary calculi; Z68.30 Body mass index [BMI] 30.0-30.9, adult
CPT/HCPCS: 74176; 81001; 87086; 87088; 87186; J7030; U0002; 36415; 74018; 80048; 85025; 99285-25; A9270-GY; J1170; J2765

== ENCOUNTER 2021-11-25 21:41 | Emergency (ER) | payer MEDICARE, BC ==
[2021-11-26] MEDS ORDERED: Gabapentin 300 MG Cap PO ONE (00:47)
[2021-11-26 01:02] VITALS: BP 157/70; PULSE 69
[2021-11-26] MEDS ORDERED: Ciprofloxacin 250 MG Tab PO ONE (01:58)
[2021-11-26] MEDS ORDERED: Ciprofloxacin 500 MG Tab PO ONE (02:02)
== END 2021-11-26 02:20 | disposition home or self-care (01) ==
LOC: FB.ED 21:41
DX: N13.30 Unspecified hydronephrosis (principal); D72.829 Elevated white blood cell count, unspecified; N39.0 Urinary tract infection, site not specified; I13.0 Hypertensive heart and chronic kidney disease with heart failure and stage 1 through stage 4 chronic kidney disease, or unspecified chronic kidney disease; N18.4 Chronic kidney disease, stage 4 (severe); I50.9 Heart failure, unspecified; K21.9 Gastro-esophageal reflux disease without esophagitis; E78.00 Pure hypercholesterolemia, unspecified; Z79.899 Other long term (current) drug therapy; Z88.8 Allergy status to other drugs, medicaments and biological substances; Z88.1 Allergy status to other antibiotic agents
CPT/HCPCS: 36415; 74176; 80053; 81001; 85025; 87086; 87186; 99283; 99284-25; A9270-GY

== ENCOUNTER 2022-02-07 09:30 | Emergency (ER) | payer MEDICARE, BC ==
[2022-02-07 10:06] VITALS: BP 92/52; PULSE 69
[2022-02-07 10:42] LABS: ESTIMATED GFR 14 mL/min (>60)
[2022-02-07] MEDS ORDERED: Sodium Chloride 0.9% 1,000 ML IV SCH ×2 (11:30)
[2022-02-07 13:10] LABS: ESTIMATED GFR 16 mL/min (>60)
== END 2022-02-07 13:47 | disposition home or self-care (01) ==
LOC: FB.ED 09:30
DX: N39.0 Urinary tract infection, site not specified (principal); N17.9 Acute kidney failure, unspecified; E87.6 Hypokalemia; E86.0 Dehydration; L98.8 Other specified disorders of the skin and subcutaneous tissue; I11.0 Hypertensive heart disease with heart failure; I50.9 Heart failure, unspecified; E78.00 Pure hypercholesterolemia, unspecified; K21.9 Gastro-esophageal reflux disease without esophagitis; E03.9 Hypothyroidism, unspecified; E66.9 Obesity, unspecified; Z88.0 Allergy status to penicillin; Z88.5 Allergy status to narcotic agent; Z88.8 Allergy status to other drugs, medicaments and biological substances; Z79.899 Other long term (current) drug therapy; Z68.29 Body mass index [BMI] 29.0-29.9, adult
CPT/HCPCS: 36415; 71045; 74176; 80048; 81001; 85025; 87086; 87088; 87186; 96360; 96361; 99284; J7030

== ENCOUNTER 2022-08-25 09:56 | Emergency (ER) | payer MEDICARE, BC ==
[2022-08-25 12:06] LABS: ESTIMATED GFR 24 mL/min (>60)
[2022-08-25 14:14] VITALS: BP 155/64; PULSE 74
== END 2022-08-25 12:53 | disposition home or self-care (01) ==
LOC: FB.ED 09:56
DX: I12.9 Hypertensive chronic kidney disease with stage 1 through stage 4 chronic kidney disease, or unspecified chronic kidney disease (principal); N18.4 Chronic kidney disease, stage 4 (severe); K11.8 Other diseases of salivary glands; R79.82 Elevated C-reactive protein (CRP); E78.00 Pure hypercholesterolemia, unspecified; E66.9 Obesity, unspecified; Z88.8 Allergy status to other drugs, medicaments and biological substances; Z88.0 Allergy status to penicillin; Z88.6 Allergy status to analgesic agent; Z88.5 Allergy status to narcotic agent; Z79.899 Other long term (current) drug therapy; Z90.49 Acquired absence of other specified parts of digestive tract
CPT/HCPCS: 36415; 80053; 85025; 86140; 99283

== ENCOUNTER 2022-12-10 04:45 | Emergency (ER) | payer MEDICARE, BC ==
[2022-12-10] MEDS ORDERED: Dexamethasone 4 MG/ML 5 ML MDV IM ONE (05:34)
[2022-12-10] MEDS ORDERED: Dexamethasone 4 MG/ML SDV ONE (05:46)
[2022-12-10] MEDS ORDERED: Dexamethasone 4 MG/ML SDV IM ONE (05:49)
[2022-12-10 06:25] VITALS: BP 153/71; PULSE 79
== END 2022-12-10 06:00 | disposition home or self-care (01) ==
LOC: FB.ED 04:45
DX: L29.9 Pruritus, unspecified (principal); I11.0 Hypertensive heart disease with heart failure; I50.9 Heart failure, unspecified; E03.9 Hypothyroidism, unspecified; T37.0X5A Adverse effect of sulfonamides, initial encounter; E66.9 Obesity, unspecified; Z68.28 Body mass index [BMI] 28.0-28.9, adult; Z88.1 Allergy status to other antibiotic agents; Z88.6 Allergy status to analgesic agent; Z88.5 Allergy status to narcotic agent; Z88.8 Allergy status to other drugs, medicaments and biological substances; Z79.899 Other long term (current) drug therapy; Z90.49 Acquired absence of other specified parts of digestive tract; Z90.710 Acquired absence of both cervix and uterus
CPT/HCPCS: 96372; 99282; J1100

== ENCOUNTER 2023-10-01 12:03 | Inpatient (IN) | payer MEDICARE, BC ==
[2023-10-01] MEDS: Sodium Chloride 0.9% 1,000 ML IV ONE (12:40)
[2023-10-01 12:52] LABS: HEMOGLOBIN 8.9 g/dL (11.4-15.5); MEAN CORPUSCULAR HEMOGLOBIN 27.8 pg (23.9-33.9); MEAN CORPUSCULAR HGB CONC 31.9 g/dL (31.9-34.8); MEAN CORPUSCULAR VOLUME 87.1 fL (76.7-100.5); PLATELET COUNT,PLT 427 x10(3)uL (151-488); RED BLOOD CELL COUNT 3.22 x10(6)uL (3.60-5.20); RED CELL DISTRIBUTION WIDTH 23.3 % (12.3-16.5); WHITE BLOOD CELL COUNT,WBC 19.3 x10-3/uL (3.0-10.3)
[2023-10-01 12:58] LABS: A/G RATIO 0.6; ALANINE AMINOTRANSFERASE,ALT 27 U/L (12-36); ALKALINE PHOSPHATASE 137 IU/L (56-112); ASPARTATE AMNIOTRANSFERASE,AST 11 IU/L (5-25); BILIRUBIN TOTAL 0.5 mg/dL (0.1-1.3); BLOOD UREA NITROGEN,BUN 78 mg/dL (7-18); BUN/CREATININE RATIO 27.9 (9-20); CALCIUM 8.3 mg/dL (8.6-10.2); CARBON DIOXIDE,CO2 15 mmol/L (21-32); CHLORIDE,CL 101 mmol/L (100-110); EST CRCL DRUG DOSING (CG) 12.67 mL/min; ESTIMATED GFR 17 mL/min (>60); GLUCOSE RANDOM 170 mg/dL (80-116); POTASSIUM,K 4.3 mmol/L (3.5-5.3); PROTEIN TOTAL,TP 5.4 g/dL (6.0-8.0); SODIUM,NA 131 mmol/L (135-145)
[2023-10-01] MEDS: Acetaminophen 500 MG Tab PO ONE (13:02)
[2023-10-01 13:06] LABS: CREATININE 2.8 mg/dL (0.55-1.02)
[2023-10-01 13:07] LABS: LACTIC ACID 1.1 mmol/L (0.4-2.0)
[2023-10-01 13:17] LABS: BAND PERCENT MAN 3 % (0-6); HYPERSEGMENTED NEUTROPHILS MODERATE; OVALOCYTES FEW; SEG NEUTROPHILS PERCENT MAN 97 % (46-82); TEARDROP CELLS FEW; TROPONIN I 20.8 pg/mL (4.0-60.3)
[2023-10-01 13:18] LABS: INFLUENZA A NAA NEGATIVE (NEGATIVE); INFLUENZA B NAA NEGATIVE (NEGATIVE)
[2023-10-01 13:20] LABS: INR 0.93 (1.00-1.24); PROTHROMBIN TIME 9.8 sec (9.0-11.1); PTT,PARTIAL THROMBOPLSTIN TIME 22.6 SECONDS (24.4-33.2)
[2023-10-01 13:23] LABS: CORONAVIRUS COVID-19 NAA NEGATIVE (NEGATIVE)
[2023-10-01 13:33] LABS: BILIRUBIN,URINE NEGATIVE (NEGATIVE); GLUCOSE,URINE NORMAL (NORMAL); KETONES,URINE NEGATIVE (NEGATIVE); LEUKOCYTE ESTERASE,URINE LARGE (NEGATIVE); NITRITE,URINE NEGATIVE (NEGATIVE); OCCULT BLOOD,URINE LARGE (NEGATIVE); PROTEIN,URINE TRACE mg/dL (NEGATIVE); UROBILINOGEN,URINE NORMAL (NEGATIVE)
[2023-10-01 13:38] LABS: APPEARANCE,URINE SLIGHTLY CLOUDY (CLEAR); COLOR,URINE YELLOW (YELLOW); SQUAMOUS EPITHELIAL CELLS,UR FEW (NS,R,O); WBC,URINE 50-75 (0-5)
[2023-10-01 13:39] LABS: BACTERIA,URINE MANY (NS)
[2023-10-01] MEDS: Sodium Chloride 0.9% 1,000 ML IV SCH (15:05)
[2023-10-01] MEDS ORDERED: DAPTOmycin 500 MG Vial IVPUSH SCH (15:45)
[2023-10-01] MEDS: Cefepime 1 GM Vial IVPUSH SCH (16:49)
[2023-10-01] MEDS: SODIUM CHLORIDE 0.9% IVPUSH SCH (17:12)
[2023-10-01] MEDS: DAPTOMYCIN IVPUSH SCH (17:12)
[2023-10-01] MEDS ORDERED: Nitroglycerin 0.4 MG Tab.SL SL PRN (17:36)
[2023-10-01] MEDS ORDERED: Fluticasone NASAL Spray 16 GM Bottle NASBOTH PRN (17:36)
[2023-10-01] MEDS ORDERED: DARBEPOETIN ALFA 100 MCG/0.5 ML SUBCUT SCH (17:45)
[2023-10-01] MEDS ORDERED: Adalimumab [Humira Pen] 40 MG/0.8 ML Pen.Ij.Kit SQ SCH (17:45)
[2023-10-01] MEDS ORDERED: Sodium Chloride 0.9% 1,000 ML IV SCH (17:45)
[2023-10-01] MEDS: Enoxaparin 30 MG/0.3 ML Syringe SUBCUT SCH (21:28)
[2023-10-01] MEDS: buPROPion 150 MG Tab.SR PO SCH (21:57)
[2023-10-01] MEDS: Clotrimazole 1% Crm 15 GM Tube TOP SCH (21:59)
[2023-10-02] MEDS: Acetaminophen 325 MG Tab PO PRN (01:34)
[2023-10-02] MEDS: Levothyroxine 75 MCG Tab PO SCH (06:13)
[2023-10-02] MEDS: Pantoprazole 40 MG Tab.CR PO SCH (06:13)
[2023-10-02 06:43] LABS: HEMATOCRIT 22.8 % (34.2-48.2); HEMOGLOBIN 7.3 g/dL (11.4-15.5); MEAN CORPUSCULAR HEMOGLOBIN 28.1 pg (23.9-33.9); MEAN CORPUSCULAR HGB CONC 32.1 g/dL (31.9-34.8); MEAN CORPUSCULAR VOLUME 87.6 fL (76.7-100.5); PLATELET COUNT,PLT 358 x10(3)uL (151-488); RED CELL DISTRIBUTION WIDTH 23.8 % (12.3-16.5); WHITE BLOOD CELL COUNT,WBC 14.7 x10-3/uL (3.0-10.3)
[2023-10-02 06:49] LABS: A/G RATIO 0.6; ALANINE AMINOTRANSFERASE,ALT 24 U/L (12-36); ALKALINE PHOSPHATASE 116 IU/L (56-112); ASPARTATE AMNIOTRANSFERASE,AST 10 IU/L (5-25); BILIRUBIN TOTAL 0.6 mg/dL (0.1-1.3); BLOOD UREA NITROGEN,BUN 62 mg/dL (7-18); BUN/CREATININE RATIO 25.8 (9-20); CALCIUM 7.9 mg/dL (8.6-10.2); CARBON DIOXIDE,CO2 16 mmol/L (21-32); CHLORIDE,CL 106 mmol/L (100-110); EST CRCL DRUG DOSING (CG) 14.79 mL/min; ESTIMATED GFR 20 mL/min (>60); GLUCOSE RANDOM 79 mg/dL (80-116); POTASSIUM,K 3.7 mmol/L (3.5-5.3); PROTEIN TOTAL,TP 4.4 g/dL (6.0-8.0); SODIUM,NA 136 mmol/L (135-145)
[2023-10-02 06:56] LABS: ALBUMIN 1.6 g/dL (3.2-4.6); CREATININE 2.4 mg/dL (0.55-1.02)
[2023-10-02 07:08] LABS: BAND PERCENT MAN 2 % (0-6); LYMPHOCYTES PERCENT MAN 5 % (13-37); MONOCYTES PERCENT MAN 4 % (4-12); SEG NEUTROPHILS PERCENT MAN 89 % (46-82)
[2023-10-02 07:10] LABS: STOMATOCYTES FEW; TEARDROP CELLS FEW
[2023-10-02 07:11] LABS: MICROCYTOSIS FEW
[2023-10-02 07:13] LABS: ANISOCYTOSIS MODERATE
[2023-10-02] MEDS: Citalopram 20 MG Tab PO SCH (08:15)
[2023-10-02] MEDS: Fluconazole 100 MG Tab PO SCH (08:15)
[2023-10-02] MEDS: Beta-Carotene (Vitamin A) w/Vitamin C & E plus Minerals Tab PO SCH (08:15)
[2023-10-02] MEDS: Vitamin B Complex with Vitamin C Tab PO SCH (08:16)
[2023-10-02] MEDS ORDERED: predniSONE 20 MG Tab PO SCH (09:00)
[2023-10-02] MEDS ORDERED: Adalimumab [Humira Pen] 40 MG/0.8 ML Pen.Ij.Kit SQ SCH (10:00)
[2023-10-02] MEDS: predniSONE 10 MG Tab PO SCH (10:17)
[2023-10-02] MEDS ORDERED: Sodium Chloride 0.9% 10 ML Syringe FLUSH PRN (16:01)
[2023-10-02] MEDS: oxyCODONE 5 MG Tab PO PRN (16:03)
[2023-10-03 01:24] LABS: DEAMIDATED GLIADIN PEPTIDE,IGA <0.72 FLU (0.00-4.99); TISSUE TRANSGLUTAMINAS TTG,IGA <1.02 FLU (0.00-4.99)
[2023-10-03] MEDS: Clobetasol 0.05% Crm 15 GM Tube TOP SCH (10:37)
[2023-10-03] MEDS: ceFAZolin 1 GM Vial IVPUSH SCH (16:35)
[2023-10-03] MEDS: Sodium Chloride 0.9% 10 ML Syringe FLUSH PRN (17:00)
[2023-10-04 00:05] LABS: DEAMIDATED GLIADIN PEPTIDE,IGG <0.56 FLU (0.00-4.99); TISSUE TRANSGLUTAMINASE AB,IGG <0.82 FLU (0.00-4.99)
[2023-10-04 06:18] LABS: HEMATOCRIT 24.5 % (34.2-48.2); MEAN CORPUSCULAR HEMOGLOBIN 28.7 pg (23.9-33.9); MEAN CORPUSCULAR HGB CONC 32.7 g/dL (31.9-34.8); MEAN CORPUSCULAR VOLUME 87.7 fL (76.7-100.5); MEAN PLATELET VOLUME 6.8 fL (7.1-12.4); PLATELET COUNT,PLT 337 x10(3)uL (151-488); RED BLOOD CELL COUNT 2.79 x10(6)uL (3.60-5.20); RED CELL DISTRIBUTION WIDTH 23.3 % (12.3-16.5); WHITE BLOOD CELL COUNT,WBC 11.4 x10-3/uL (3.0-10.3)
[2023-10-04 06:24] LABS: BLOOD UREA NITROGEN,BUN 64 mg/dL (7-18); BUN/CREATININE RATIO 27.8 (9-20); CALCIUM 8.7 mg/dL (8.6-10.2); CARBON DIOXIDE,CO2 18 mmol/L (21-32); CHLORIDE,CL 106 mmol/L (100-110); EST CRCL DRUG DOSING (CG) 15.43 mL/min; ESTIMATED GFR 21 mL/min (>60); GLUCOSE RANDOM 90 mg/dL (80-116); POTASSIUM,K 4.8 mmol/L (3.5-5.3); SODIUM,NA 136 mmol/L (135-145)
[2023-10-04 06:25] LABS: CREATININE 2.3 mg/dL (0.55-1.02)
[2023-10-04 06:34] LABS: LYMPHOCYTES PERCENT MAN 5 % (13-37); MONOCYTES PERCENT MAN 5 % (4-12); SEG NEUTROPHILS PERCENT MAN 90 % (46-82)
[2023-10-04] MEDS: Atropine/Diphenoxylate 0.025-2.5 MG Tab PO SCH (09:22)
[2023-10-04] MEDS: Ondansetron 4 MG/2 ML SDV IV PRN (16:10)
[2023-10-04 16:36] LABS: ADENOVIRUS 40/41 PCR Not Detected; ASTROVIRUS PCR Not Detected; CAMPYLOBACTER PCR Not Detected; CRYPTOSPORIDIUM PCR Not Detected; CYCLOSPORA CAYETANENSIS PCR Not Detected; ENTAMOEBA HISTOLYTICA PCR Not Detected; ENTEROAGGREGATIVE E. COLI PCR Not Detected; ENTEROPATHOGENIC E. COLI PCR Not Detected; ENTEROTOXIGENIC E. COLI PCR Not Detected; GIARDIA LAMBLIA PCR Not Detected; NOROVIRUS GI/GII PCR Not Detected; PLESIOMONAS SHIGELLOIDES PCR Not Detected; ROTAVIRUS A PCR Not Detected; SALMONELLA PCR Not Detected; SAPOVIRUS PCR Not Detected; SHIG/ENTEROINVASIVE E COLI PCR Not Detected; SHIGA TOXIN-PRODUC E. COLI PCR Not Detected; VIBRIO CHOLERAE PCR Not Detected; VIBRIO PCR Not Detected; YERSINIA ENTEROCOLITICA PCR Not Detected
[2023-10-04] MEDS: Prochlorperazine 10 MG/2 ML SDV IVPUSH ONE (18:23)
[2023-10-05 08:41] LABS: HEMATOCRIT 30.2 % (34.2-48.2); HEMOGLOBIN 9.6 g/dL (11.4-15.5); MEAN CORPUSCULAR HEMOGLOBIN 27.9 pg (23.9-33.9); MEAN CORPUSCULAR HGB CONC 31.8 g/dL (31.9-34.8); MEAN CORPUSCULAR VOLUME 87.9 fL (76.7-100.5); MEAN PLATELET VOLUME 6.9 fL (7.1-12.4); PLATELET COUNT,PLT 529 x10(3)uL (151-488); RED BLOOD CELL COUNT 3.44 x10(6)uL (3.60-5.20); RED CELL DISTRIBUTION WIDTH 23.3 % (12.3-16.5); WHITE BLOOD CELL COUNT,WBC 12.8 x10-3/uL (3.0-10.3)
[2023-10-05 08:52] LABS: A/G RATIO 0.5; ALANINE AMINOTRANSFERASE,ALT 22 U/L (12-36); ALKALINE PHOSPHATASE 148 IU/L (56-112); ANISOCYTOSIS MODERATE; ASPARTATE AMNIOTRANSFERASE,AST 17 IU/L (5-25); BAND PERCENT MAN 3 % (0-6); BILIRUBIN TOTAL 0.3 mg/dL (0.1-1.3); BLOOD UREA NITROGEN,BUN 62 mg/dL (7-18); BUN/CREATININE RATIO 24.8 (9-20); CALCIUM 8.6 mg/dL (8.6-10.2); CARBON DIOXIDE,CO2 17 mmol/L (21-32); CHLORIDE,CL 102 mmol/L (100-110); ESTIMATED GFR 19 mL/min (>60); GLUCOSE RANDOM 166 mg/dL (80-116); LYMPHOCYTES PERCENT MAN 3 % (13-37); MONOCYTES PERCENT MAN 6 % (4-12); POTASSIUM,K 5.6 mmol/L (3.5-5.3); PROTEIN TOTAL,TP 5.8 g/dL (6.0-8.0); SEG NEUTROPHILS PERCENT MAN 88 % (46-82); SODIUM,NA 133 mmol/L (135-145)
[2023-10-05 08:53] LABS: CREATININE 2.5 mg/dL (0.55-1.02)
[2023-10-05] MEDS: Sodium Chloride 0.9% 500 ML IV ONE (10:07)
[2023-10-05] MEDS: Prochlorperazine 10 MG/2 ML SDV IVPUSH PRN (10:16)
[2023-10-05 16:32] VITALS: BP 116/73; PULSE 137
[2023-10-05 16:58] LABS: HEMATOCRIT 29.9 % (34.2-48.2); HEMOGLOBIN 9.5 g/dL (11.4-15.5); MEAN CORPUSCULAR HEMOGLOBIN 27.8 pg (23.9-33.9); MEAN CORPUSCULAR HGB CONC 31.7 g/dL (31.9-34.8); MEAN CORPUSCULAR VOLUME 87.8 fL (76.7-100.5); MEAN PLATELET VOLUME 7.1 fL (7.1-12.4); PLATELET COUNT,PLT 522 x10(3)uL (151-488); RED CELL DISTRIBUTION WIDTH 23.5 % (12.3-16.5); WHITE BLOOD CELL COUNT,WBC 14.4 x10-3/uL (3.0-10.3)
[2023-10-05 17:05] LABS: BLOOD UREA NITROGEN,BUN 66 mg/dL (7-18); BUN/CREATININE RATIO 25.4 (9-20); CALCIUM 8.2 mg/dL (8.6-10.2); CARBON DIOXIDE,CO2 15 mmol/L (21-32); CHLORIDE,CL 103 mmol/L (100-110); EST CRCL DRUG DOSING (CG) 13.65 mL/min; ESTIMATED GFR 18 mL/min (>60); GLUCOSE RANDOM 188 mg/dL (80-116); POTASSIUM,K 5.3 mmol/L (3.5-5.3); SODIUM,NA 133 mmol/L (135-145)
[2023-10-05 17:07] LABS: ANISOCYTOSIS MODERATE; BAND PERCENT MAN 1 % (0-6); HYPOCHROMASIA MODERATE; LYMPHOCYTES PERCENT MAN 1 % (13-37); METAMYELOCYTE PERCENT MAN 1 % (0-0); MONOCYTES PERCENT MAN 1 % (4-12); SEG NEUTROPHILS PERCENT MAN 96 % (46-82)
[2023-10-05 17:09] LABS: CREATININE 2.6 mg/dL (0.55-1.02)
[2023-10-05 17:13] LABS: LACTIC ACID 2.7 mmol/L (0.4-2.0)
[2023-10-05] MEDS: Sodium Chloride 0.9% 1,000 ML IV ONE (17:42)
[2023-10-05] MEDS: Meropenem 1 GM SDV IVPUSH ONE (17:54)
[2023-10-05] MEDS: Linezolid 600 MG in Premix Bag 1 BAG IV ONE (18:07)
[2023-10-09] MEDS ORDERED: predniSONE 20 MG Tab PO SCH (09:00)
[2023-10-16] MEDS ORDERED: predniSONE 10 MG Tab PO SCH (09:00)
== END 2023-10-05 18:30 | DRG 698 ==
LOC: FB.ED 12:03 → FB.MS 17:24 → UNDOADMIN 17:43 → UNDODISIN 10-05 18:30
PROVIDERS: ADMIT Emergency Medicine; ATTEND Family Medicine
DX: T83.593A Infection and inflammatory reaction due to other urinary stents, initial encounter (principal); E43 Unspecified severe protein-calorie malnutrition; N39.0 Urinary tract infection, site not specified; N17.9 Acute kidney failure, unspecified; N32.1 Vesicointestinal fistula; N18.9 Chronic kidney disease, unspecified; I13.0 Hypertensive heart and chronic kidney disease with heart failure and stage 1 through stage 4 chronic kidney disease, or unspecified chronic kidney disease; B37.81 Candidal esophagitis; N18.4 Chronic kidney disease, stage 4 (severe); E87.1 Hypo-osmolality and hyponatremia; N12 Tubulo-interstitial nephritis, not specified as acute or chronic; E87.20 Acidosis, unspecified; Y83.8 Other surgical procedures as the cause of abnormal reaction of the patient, or of later complication, without mention of misadventure at the time of the procedure; B96.1 Klebsiella pneumoniae [K. pneumoniae] as the cause of diseases classified elsewhere; N26.1 Atrophy of kidney (terminal); B96.4 Proteus (mirabilis) (morganii) as the cause of diseases classified elsewhere; I50.9 Heart failure, unspecified; E78.00 Pure hypercholesterolemia, unspecified; K21.9 Gastro-esophageal reflux disease without esophagitis; M19.90 Unspecified osteoarthritis, unspecified site; M54.31 Sciatica, right side; K52.9 Noninfective gastroenteritis and colitis, unspecified; L30.1 Dyshidrosis [pompholyx]; N13.5 Crossing vessel and stricture of ureter without hydronephrosis; F41.9 Anxiety disorder, unspecified; F32.A Depression, unspecified; E03.9 Hypothyroidism, unspecified; E66.9 Obesity, unspecified; D50.9 Iron deficiency anemia, unspecified; Z90.89 Acquired absence of other organs; Z90.49 Acquired absence of other specified parts of digestive tract; Z90.710 Acquired absence of both cervix and uterus; Z88.8 Allergy status to other drugs, medicaments and biological substances; Z88.0 Allergy status to penicillin; Z88.5 Allergy status to narcotic agent; Z79.890 Hormone replacement therapy; Z79.899 Other long term (current) drug therapy; Z90.722 Acquired absence of ovaries, bilateral; Z87.442 Personal history of urinary calculi; Z93.3 Colostomy status; Z11.52 Encounter for screening for COVID-19; Z86.19 Personal history of other infectious and parasitic diseases; Z68.25 Body mass index [BMI] 25.0-25.9, adult
CPT/HCPCS: 0240U; 36415; 71045; 74176; 80048; 80053; 81001; 82550; 83605; 83880; 84484; 85025; 85610; 85730; 86140; 86258; 86364; 87040; 87086; 87088; 87186; 87230; 87507; 93005; 93010; 93306; 96361; 96374; 97110-GO; 97161-GP; 97165-GO; 97530-GP; 97535-GO; 99222; 99232; 99239; 99285; 99285-25; A9270-GY; J0690; J0692; J0780; J0878; J1650; J2020; J2185; J2405; J3490; J7030; J7040; J7512

== ENCOUNTER 2023-10-10 07:28 | Inpatient (IN) | payer MEDICARE, BC ==
[2023-10-10] MEDS ORDERED: Nitroglycerin 0.4 MG Tab.SL SL PRN (16:05)
[2023-10-10] MEDS: Midodrine 5 MG Tab PO SCH (17:34)
[2023-10-10] MEDS: Amoxicillin 250 MG Cap PO SCH (20:48)
[2023-10-10] MEDS: Saccharomyces Boulardii (Probiotic) 250 MG Cap PO SCH (20:48)
[2023-10-10] MEDS: Cefdinir 300 MG Cap PO SCH (20:48)
[2023-10-10] MEDS: buPROPion 150 MG Tab.SR PO SCH (20:49)
[2023-10-10] MEDS: Sodium Bicarbonate 650 MG Tab PO SCH (20:49)
[2023-10-10] MEDS: Clotrimazole 1% Crm 15 GM Tube TOP SCH (21:01)
[2023-10-11] MEDS: Levothyroxine 75 MCG Tab PO SCH (05:33)
[2023-10-11] MEDS: Pantoprazole 40 MG Tab.CR PO SCH (05:33)
[2023-10-11] MEDS: Vitamin B Complex with Vitamin C Tab PO SCH (08:38)
[2023-10-11] MEDS: Lutein/Minerals/Vitamin C/Vitamin E Acetate Cap PO SCH (08:38)
[2023-10-11] MEDS: predniSONE 10 MG Tab PO SCH (08:39)
[2023-10-14] MEDS: Citalopram 20 MG Tab PO SCH (10:38)
[2023-10-19] MEDS: Ondansetron 4 MG Tab.DIS PO PRN (21:59)
[2023-10-19] MEDS: Acetaminophen 325 MG Tab PO PRN (22:18)
[2023-10-20 08:20] LABS: HEMATOCRIT 32.2 % (34.2-48.2); HEMOGLOBIN 10.5 g/dL (11.4-15.5); MEAN CORPUSCULAR HEMOGLOBIN 28.7 pg (23.9-33.9); MEAN CORPUSCULAR HGB CONC 32.7 g/dL (31.9-34.8); MEAN CORPUSCULAR VOLUME 87.7 fL (76.7-100.5); MEAN PLATELET VOLUME 7.2 fL (7.1-12.4); PLATELET COUNT,PLT 338 x10(3)uL (151-488); RED BLOOD CELL COUNT 3.67 x10(6)uL (3.60-5.20); RED CELL DISTRIBUTION WIDTH 21.6 % (12.3-16.5); WHITE BLOOD CELL COUNT,WBC 9.4 x10-3/uL (3.0-10.3)
[2023-10-20 09:10] LABS: BAND PERCENT MAN 1 % (0-6); LYMPHOCYTES PERCENT MAN 5 % (13-37); MONOCYTES PERCENT MAN 4 % (4-12); SEG NEUTROPHILS PERCENT MAN 90 % (46-82)
[2023-10-21 06:33] LABS: HEMOGLOBIN 10.4 g/dL (11.4-15.5); MEAN CORPUSCULAR HEMOGLOBIN 28.4 pg (23.9-33.9); MEAN CORPUSCULAR HGB CONC 32.6 g/dL (31.9-34.8); MEAN CORPUSCULAR VOLUME 87.2 fL (76.7-100.5); MEAN PLATELET VOLUME 7.2 fL (7.1-12.4); PLATELET COUNT,PLT 358 x10(3)uL (151-488); RED BLOOD CELL COUNT 3.68 x10(6)uL (3.60-5.20); RED CELL DISTRIBUTION WIDTH 21.5 % (12.3-16.5); WHITE BLOOD CELL COUNT,WBC 8.3 x10-3/uL (3.0-10.3)
[2023-10-21 06:49] LABS: BAND PERCENT MAN 2 % (0-6); LYMPHOCYTES PERCENT MAN 5 % (13-37); MONOCYTES PERCENT MAN 4 % (4-12); SEG NEUTROPHILS PERCENT MAN 89 % (46-82)
[2023-10-21 06:50] LABS: ANISOCYTOSIS FEW
[2023-10-22 15:43] VITALS: BP 134/63; PULSE 107
== END 2023-10-22 15:30 | disposition swing bed (61) | DRG 948 ==
LOC: FB.MS 13:43
PROVIDERS: ADMIT Family Medicine; ATTEND Family Medicine
DX: R53.1 Weakness (principal); K50.90 Crohn's disease, unspecified, without complications; I13.0 Hypertensive heart and chronic kidney disease with heart failure and stage 1 through stage 4 chronic kidney disease, or unspecified chronic kidney disease; N18.4 Chronic kidney disease, stage 4 (severe); R29.898 Other symptoms and signs involving the musculoskeletal system; I50.32 Chronic diastolic (congestive) heart failure; E78.00 Pure hypercholesterolemia, unspecified; K21.9 Gastro-esophageal reflux disease without esophagitis; M19.90 Unspecified osteoarthritis, unspecified site; F41.9 Anxiety disorder, unspecified; F32.A Depression, unspecified; E03.9 Hypothyroidism, unspecified; E66.9 Obesity, unspecified; Z96.0 Presence of urogenital implants; K52.9 Noninfective gastroenteritis and colitis, unspecified; M54.31 Sciatica, right side; Z88.0 Allergy status to penicillin; Z88.8 Allergy status to other drugs, medicaments and biological substances; Z88.5 Allergy status to narcotic agent; Z79.899 Other long term (current) drug therapy; Z87.442 Personal history of urinary calculi; Z87.81 Personal history of (healed) traumatic fracture; Z68.24 Body mass index [BMI] 24.0-24.9, adult; Z90.89 Acquired absence of other organs; Z98.890 Other specified postprocedural states; Z90.49 Acquired absence of other specified parts of digestive tract; Z90.710 Acquired absence of both cervix and uterus; Z90.722 Acquired absence of ovaries, bilateral; Z90.79 Acquired absence of other genital organ(s); Z87.891 Personal history of nicotine dependence
CPT/HCPCS: 36415; 72148; 82272; 82947; 85025; 87230; 97110-GO; 97110-GP; 97161-GP; 97165-GO; 97530-GO; 97530-GP; 97535-GO; 99305; 99308; 99315; A9270-GY; J7512; Q0162

== ENCOUNTER 2023-11-10 11:25 | Emergency (ER) | payer MEDICARE, BC ==
[2023-11-10] MEDS ORDERED: Sodium Chloride 0.9% 10 ML Syringe FLUSH PRN (11:30)
[2023-11-10] MEDS: Sodium Chloride 0.9% 1,000 ML IV ONE ×2 (11:45→12:15)
[2023-11-10 12:13] LABS: BASE EXCESS VENOUS,POC -20 mmol/L (-2 - 3+); PCO2 VENOUS,POC 17 mmHg (41-51); PH VENOUS,POC 7.18 pH Units (7.32-7.43)
[2023-11-10 12:19] LABS: HEMATOCRIT 30.2 % (34.2-48.2); HEMOGLOBIN 9.6 g/dL (11.4-15.5); MEAN CORPUSCULAR HEMOGLOBIN 28.2 pg (23.9-33.9); MEAN CORPUSCULAR HGB CONC 31.7 g/dL (31.9-34.8); MEAN CORPUSCULAR VOLUME 88.9 fL (76.7-100.5); MEAN PLATELET VOLUME 7.1 fL (7.1-12.4); PLATELET COUNT,PLT 371 x10(3)uL (151-488); RED BLOOD CELL COUNT 3.39 x10(6)uL (3.60-5.20); RED CELL DISTRIBUTION WIDTH 20.4 % (12.3-16.5); WHITE BLOOD CELL COUNT,WBC 25.8 x10-3/uL (3.0-10.3)
[2023-11-10 12:25] LABS: A/G RATIO 0.6; ALANINE AMINOTRANSFERASE,ALT 28 U/L (12-36); ALKALINE PHOSPHATASE 160 IU/L (56-112); ASPARTATE AMNIOTRANSFERASE,AST 22 IU/L (5-25); BILIRUBIN TOTAL 0.4 mg/dL (0.1-1.3); BLOOD UREA NITROGEN,BUN 83 mg/dL (7-18); BUN/CREATININE RATIO 18.9 (9-20); CALCIUM 8.1 mg/dL (8.6-10.2); CHLORIDE,CL 105 mmol/L (100-110); ESTIMATED GFR 10 mL/min (>60); GLUCOSE RANDOM 178 mg/dL (80-116); MAGNESIUM 2.5 mg/dL (1.8-2.5); POTASSIUM,K 4.1 mmol/L (3.5-5.3); PROTEIN TOTAL,TP 5.6 g/dL (6.0-8.0); SODIUM,NA 136 mmol/L (135-145)
[2023-11-10] MEDS: Hydrocortisone Sodium Succinate 100 MG/2 ML SDV IVPUSH ONE (12:25)
[2023-11-10 12:26] LABS: INR 0.99 (1.00-1.24); PROTHROMBIN TIME 10.3 sec (9.0-11.1); PTT,PARTIAL THROMBOPLSTIN TIME 23.5 SECONDS (24.4-33.2)
[2023-11-10 12:33] VITALS: BP 101/70; PULSE 114
[2023-11-10 12:35] LABS: CARBON DIOXIDE,CO2 7 mmol/L (21-32); CREATININE 4.4 mg/dL (0.55-1.02); EST CRCL DRUG DOSING (CG) 8.06 mL/min
[2023-11-10 12:36] LABS: C-REACTIVE PROTEIN 9.99 mg/dL (<0.50)
[2023-11-10] MEDS: Cefepime 2 GM Vial ONE (12:44)
[2023-11-10] MEDS: metroNIDAZOLE/Normal Saline 100 ML ONE (12:45)
[2023-11-10] MEDS: Cefepime 1 GM Vial IVPUSH ONE (12:45)
[2023-11-10] MEDS: metroNIDAZOLE/Normal Saline 500 MG in Premix Bag 1 BAG IV ONE (12:47)
[2023-11-10 12:56] LABS: LYMPHOCYTES PERCENT MAN 8 % (13-37); MONOCYTES PERCENT MAN 2 % (4-12); SEG NEUTROPHILS PERCENT MAN 90 % (46-82)
[2023-11-10] MEDS: Sodium Chloride 0.9% 1,000 ML IV SCH (13:18)
== END 2023-11-10 13:55 ==
LOC: FB.ED 11:25
DX: A41.9 Sepsis, unspecified organism (principal); R57.1 Hypovolemic shock; G93.40 Encephalopathy, unspecified; R19.7 Diarrhea, unspecified; I11.0 Hypertensive heart disease with heart failure; I50.9 Heart failure, unspecified; K21.9 Gastro-esophageal reflux disease without esophagitis; E03.9 Hypothyroidism, unspecified; E66.9 Obesity, unspecified; Z79.899 Other long term (current) drug therapy; Z88.1 Allergy status to other antibiotic agents; Z88.5 Allergy status to narcotic agent; Z88.8 Allergy status to other drugs, medicaments and biological substances
CPT/HCPCS: 36410; 36415; 51702; 74176; 80053; 82272; 83605; 83690; 83735; 84484; 85025; 85610; 85730; 86140; 86850; 86900; 86901; 87040; 93005; 93010; 96361; 96374; 96375; 99285-25; 99291; 99292; J0692; J1720; J1836; J7030